=== PATIENT | male | born 1930 | race Caucasian/White ===

== ENCOUNTER 2016-05-07 16:35 | Inpatient (IN) | payer MEDICARE, OTHER ==
[~2016-05-07] VITALS: Ht 157.5 cm; Wt 84.0 kg
[~2016-05-07 16:35] MED LIST: ALLO300T2 PO; AMLO-145 PO; CARV6.2579 PO; CLOB15OI15 TOP; CLON1TAB3 PO; CLOP75TA4 PO; DEXL60CA2 PO; DICL100G37 TOP; DOCU-144 PO; DUTA0.5C PO; ERGO500014 PO; FLUT16SP17 NASAL; FURO40TA4 PO; GLIP10TA95 PO; HUM100VI13 SQ; HYDR-3670 PO; LANT3I SC; MONT10TA24 PO; NOVO3I SC; NYST15PO4 TOP; OLOP2.5D BOTH EYES; PANT40TA4 PO; POTA8CAP PO; ROSU40TA PO; TAMS0.4C2 PO; TRAM-40 PO; VALS160T20 PO
[2016-05-07 20:00] VITALS: BP 144/66; PULSE 66; RESP 18; Ht 157.5 cm; Wt 84.0 kg
[2016-05-07] MEDS ORDERED: NITROGLYCERIN (SL) 0.4 MG TAB SL PRN (20:30)
[2016-05-07] MEDS ORDERED: GLUCOSE GEL 15 GRAM TUBE PO PRN ×2 (20:30)
[2016-05-07] MEDS ORDERED: GLUCOSE GEL 15 GRAM TUBE BUCCAL PRN (20:30)
[2016-05-07] MEDS ORDERED: DOCUSATE SODIUM 100 MG CAP PO PRN (20:30)
[2016-05-07] MEDS ORDERED: GLUCAGON 1 MG INJ IM PRN (20:30)
[2016-05-07] MEDS ORDERED: DEXTROSE 50% 50 ML SYRINGE IV PRN ×2 (20:30)
[2016-05-07] MEDS ORDERED: ACETAMINOPHEN 650MG/20.3ML CUP PO PRN (21:00)
[2016-05-07] MEDS: ROSUVASTATIN CALCIUM 40 MG TABLET PO SCH (22:15)
[2016-05-07] MEDS: VALSARTAN 160 MG TAB PO SCH (22:15)
[2016-05-07] MEDS: CLOBETASOL 0.05% 15 GM OINT TOP SCH (22:16)
[2016-05-07] MEDS: MONTELUKAST 10 MG TAB PO SCH (22:16)
[2016-05-07] MEDS: OLOPATADINE 0.1% 5 ML OPH BOTH EYES SCH (22:16)
[2016-05-07] MEDS: DICLOFENAC SODIUM 1% GEL 100 GM TUBE TP SCH (22:17)
[2016-05-07] MEDS: NYSTATIN 30 GM POWDER BTL TOP SCH (22:24)
[2016-05-07] MEDS: Insulin NOVOLOG SS MODERATE Algorithm (SS with meals and bedtime) SC SCH (22:26)
[2016-05-07] MEDS ORDERED: BISACODYL 10 MG SUPP PR PRN (23:45)
[2016-05-07] MEDS: SENNA TAB PO SCH (23:45)
[2016-05-07] MEDS ORDERED: LACTULOSE 30ML CUP PO PRN (23:45)
[2016-05-07] MEDS ORDERED: MAGNESIUM HYDROXIDE 30ML CUP PO PRN (23:45)
[2016-05-08] MEDS: ACCUCHECK AT 2AM (Patients on SS coverage) XX SCH (02:00)
[2016-05-08 03:16] LABS: ADD UMIC YES; URINE BILIRUBIN (Dip) NEGATIVE (NEGATIVE); URINE BLOOD (Dip) 1+ (NEGATIVE); URINE COLOR LT. YELLOW (YELLOW); URINE GLUCOSE (Dip) NEGATIVE (NEGATIVE); URINE KETONES (Dip) NEGATIVE (NEGATIVE); URINE LEUKOCYTE ESTERASE (Dip) NEGATIVE (NEGATIVE); URINE NITRITE (Dip) NEGATIVE (NEGATIVE); URINE TOTAL PROTEIN (Dip) TRACE (NEGATIVE); URINE UROBILINOGEN (Dip) 0.2 E.U./dL (0.1-1.0)
[2016-05-08 03:27] LABS: SQUAMOUS EPITHELIAL CELL,UR RARE
[2016-05-08] MEDS: PANTOPRAZOLE (EC) 40 MG TAB PO SCH (06:24)
[2016-05-08 06:25] VITALS: BP 155/67; PULSE 72
[2016-05-08 07:15] LABS: BASOPHILS % 0.7 % (0.0-2.0); EOSINOPHILS # 0.1 10^3/ul (0.0-0.5); EOSINOPHILS % 1.3 % (0.0-7.0); HEMATOCRIT 24.1 % (42.0-52.0); HEMOGLOBIN 7.9 g/dl (14.0-18.0); LYMPHOCYTES # 1.9 10^3/ul (0.8-2.9); LYMPHOCYTES % 27.5 % (15.0-51.0); MEAN CORPUSCULAR HGB CONC 32.8 g/dl (32.0-37.0); MEAN CORPUSCULAR VOLUME 94.4 fl (82.0-101.0); MEAN PLATELET VOLUME 7.9 fl (7.4-10.4); MONOCYTE # 0.5 10^3/ul (0.3-0.9); MONOCYTES % 7.2 % (0.0-11.0); NEUTROPHIL # 4.3 10^3/ul (1.6-7.5); NEUTROPHILS % 63.3 % (39.0-77.0); PLATELET COUNT 196 10^3/UL (140-440); RED BLOOD COUNT 2.55 10^6/ul (4.70-6.10); RED CELL DISTRIBUTION WIDTH 14.7 % (11.5-14.5); UNCORRECTED WBC 6.8 10^3/ul (4.8-10.8); WHITE BLOOD COUNT 6.8 10^3/ul (4.8-10.8)
[2016-05-08 07:25] LABS: CONDITION 1; LH ANALYZER COMMENTS 1
[2016-05-08 07:29] LABS: ALBUMIN 2.7 g/dl (3.3-4.9); POTASSIUM 4.4 mmol/L (3.5-5.1)
[2016-05-08 07:32] LABS: BILIRUBIN,INDIRECT 0.1 mg/dl (0-1.1); BILIRUBIN,TOTAL 0.1 mg/dl (0.2-1.3); CREATININE 1.55 mg/dl (0.61-1.24); TOTAL PROTEIN 5.4 g/dl (6.1-8.1)
[2016-05-08 07:33] LABS: CALCIUM 8.1 mg/dl (8.4-10.2)
[2016-05-08] MEDS: Insulin NOVOLOG SS MODERATE Algorithm (SS with meals and bedtime) SC SCH ×4 (07:35→20:51)
[2016-05-08] MEDS: INSULIN ASPART [NOVOLOG] 3 ML PEN SC SCH ×3 (07:35→18:01)
[2016-05-08 08:00] VITALS: BP 140/60; PULSE 78; RESP 18
[2016-05-08] MEDS: VALSARTAN 160 MG TAB PO SCH ×2 (09:00→20:46)
[2016-05-08] MEDS: OLOPATADINE 0.1% 5 ML OPH BOTH EYES SCH ×2 (09:00→22:01)
[2016-05-08] MEDS: INSULIN GLARGINE [LANtus] 3 ML PEN SC SCH (09:00)
[2016-05-08] MEDS: LINAGLIPTIN 5 MG TABLET PO SCH (09:00)
[2016-05-08] MEDS: NYSTATIN 30 GM POWDER BTL TOP SCH ×2 (09:00→20:48)
[2016-05-08] MEDS: AMLODIPINE 5 MG TAB PO SCH (09:00)
[2016-05-08] MEDS: DUTASTERIDE 0.5 MG CAP PO SCH ×2 (09:00→15:29)
[2016-05-08] MEDS: CLOBETASOL 0.05% 15 GM OINT TOP SCH ×2 (09:00→22:01)
[2016-05-08] MEDS: DICLOFENAC SODIUM 1% GEL 100 GM TUBE TP SCH ×3 (09:00→20:48)
[2016-05-08] MEDS: FUROSEMIDE 40 MG TAB PO SCH (09:00)
[2016-05-08] MEDS: POTASSIUM CHLORIDE (SR) 8 MEQ CAP PO SCH ×2 (09:00→15:30)
[2016-05-08] MEDS: DOCUSATE SODIUM 100 MG CAP PO SCH ×2 (15:27→20:51)
[2016-05-08] MEDS: MULTIVITAMINS THERAPEUTIC TAB PO SCH (15:28)
[2016-05-08] MEDS: COLLAGENASE 30 GM TUBE TOP SCH (15:28)
[2016-05-08] MEDS: FOLIC ACID 1 MG TAB PO SCH (15:28)
[2016-05-08] MEDS: ZINC SULFATE 220 MG CAP PO SCH (15:28)
[2016-05-08] MEDS: ASCORBIC ACID 500 MG TAB PO SCH (15:39)
[2016-05-08] MEDS: BETAMETHASONE/CLOTRIMAZOLE 15 GM CR TOP PRN (15:39)
--- NOTE | 2016-05-08 18:04 | CONS ---
DATE OF ADMISSION: 05/07/2016 DATE OF CONSULTATION: 05/08/2016 REASON FOR CONSULTATION: Medical management during the course of acute rehabilitation. HISTORY OF PRESENT ILLNESS: This is an 85-year-old gentleman with past medical history of obesity, essential hypertension, coronary artery disease status post CABG, carotid stenosis status post CEA b ilaterally, BPH, diabetes mellitus type 2, GERD, AVR, spinal stenosis, and gout who was recently adm itted to [facility] on 04/23/2016 and was diagnosed with subdural hematoma with mi dline shift and was admitted to the ICU. Neurosurgery, Dr. Castillo, was consulted. The patient w as taken to OR for left duane hole for drainage of subdural hematoma with placement of a subdural yanira in on 04/28/2016. The patient tolerated the procedure well and was continued to be monitored in ICU where he was continued on medical management. He was then been placed on Cardene drip secondary to elevated blood pressure. In the course of the ICU, he was continued to be monitored by medicine te am, social media editor, neurosurgery, and carton forming machine helper. He essentially was transferred out of the ICU to telemetry floor where he was seen and evaluated by the physical therapist, and he was able to joseph ate oral intake. He was able to ambulate with assistance. His blood pressure is starting to improv e significantly. The patient was then seen and evaluated by acute rehab and has been accepted [facility] for further physical therapy evaluation and treatment. At this time, the patient denies h aving any chest pain, shortness of breath, nausea, vomiting, diarrhea. No headache, dizziness, ligh theadedness. No change in visual acuity, diplopia, photophobia. He has been able to tolerate oral intake. He has been placed on pureed diet without any evidence of aspiration. PAST MEDICAL AND SURGICAL HISTORY: 1. Subdural hematoma with midline shift, status post left frontal duane hole and placement of a subd ural drain. 2. Status post drain removal. 3. Encephalopathy secondary to subdural hematoma, improved. 4. Uncontrolled diabetes mellitus. 5. Chronic kidney disease. 6. Coronary artery disease status post coronary artery bypass graft. 7. GERD. 8. Aortic valve replacement. 9. Gout. 10. Benign prostatic hypertrophy. 11. Anemia of chronic disease. 12. Status post PICC line placement. 13. Essential hypertension. MEDICATIONS: 1. Tylenol. 2. Norvasc. 3. Coreg 25 mg. 4. Klonopin. 5. Colace 100 mg. 6. Avodart 0.5 mg. 7. Drisdol 50,000 units. 8. Lasix 40 mg. 9. Hydralazine 10 mg. 10. NovoLog 5 units. 11. Lantus 15 units. 12. Tradjenta 5 mg. 13. 5 mg. 14. Nitroglycerin 0.4 mg. 15. Nystatin 30 grams. 16. Patanol 1 drop. 17. Protonix 40 mg. 18. Potassium chloride 8 mEq. 19. Crestor 40 mg. 20. Losartan 160 mg. 21. 10 mg. ALLERGIES: NO KNOWN DRUG ALLERGIES. FAMILY HISTORY: Noncontributory secondary to advanced age. SOCIAL HISTORY: Positive for history of smoking in remission and occasional alcohol use in the past . No illicit drugs. REVIEW OF SYSTEMS: As above per HPI. Otherwise, 12 review of systems has been found to be negative . PHYSICAL EXAMINATION: VITAL SIGNS: Temperature 98.9, pulse 60, respiration 18, blood pressure 144/66, saturating 98% in r oom air. GENERAL APPEARANCE: The patient is lying in bed comfortably without any acute distress. He is awak e, alert, is able to answer my questions and follow commands. EYES AND ENT: Conjunctivae and lids are normal. Pupils are normal. Extraocular normal. Hearing g rossly normal. Lips are normal. Oral mucosa is moist. NECK: Supple. Trachea is midline. No lymphadenopathy. RESPIRATORY: Effort is normal. Clear to auscultation bilaterally. CARDIOVASCULAR: Normal S1, S2. Regular rhythm and rate. No murmur, no bruits, no edema. Peripher al pulses, radial pulses palpable. Cap refill is normal. CHEST: Normal expansion of thorax during inspiration. GASTROINTESTINAL: Abdomen is soft, nontender, not distended. Bowel sounds present. No guarding, n o rebound. GENITOURINARY: Deferred. MUSCULOSKELETAL: Upper and lower extremities within normal limits. Full range of motion. Strength upper extremities 5/5, lower extremities 4/5 bilaterally symmetric. NEUROLOGIC: He is awake, alert, oriented. LABORATORY WORK AND IMAGING: WBC 6.8, hemoglobin 7.8, hematocrit 24.1, platelets 196, MCV 94.4. So dium 143, potassium 4.4, chloride 109, bicarbonate 25, BUN 25, creatinine 1.55, glucose 148, prealbu min 3.13, albumin 2.7. ASSESSMENT AND PLAN: 1. Status post subdural hematoma and midline shift status post left frontal duane hole and placement of subdural drain. Neurosurgery was consulted. The patient is stable. Continue physical therapy. 2. Encephalopathy, resolving. 3. Diabetes mellitus. Continue aggressive medical management with Tradjenta, Lantus, insulin slidi ng scale, NovoLog. 4. Chronic kidney insufficiency. Continue to monitor. 5. History of coronary artery disease status post coronary artery bypass graft. Continue Coreg and statin. Unfortunately, the patient does not qualify for any anticoagulation or antiplatelet second luis carlos to subdural hematoma. 6. Gastroesophageal reflux disease. Continue PPI. 7. History of aortic valve replacement as above. The patient does not qualify for any anticoagulat ion at this time secondary to subdural hematoma. 8. Gout. Continue medical management. 9. Benign prostatic hypertrophy. Continue avodart. 10. Anemia of chronic disease. Continue to monitor. If patient's hemoglobin is less than 7.5, we will transfuse. We will continue to monitor patient closely. Further recommendations, management, and treatment as per clinical course. Total amount of time spent for evaluation of patient and admission workup was 40 minutes. Dictated By: GLEN DOMINGO MD PN/NTS Conf#: [id number] DID#: [id number]
[2016-05-08 20:00] VITALS: BP 184/77; PULSE 74; RESP 18
[2016-05-08] MEDS: ROSUVASTATIN CALCIUM 40 MG TABLET PO SCH (20:45)
[2016-05-08] MEDS: SENNA TAB PO SCH (20:51)
[2016-05-08] MEDS: MONTELUKAST 10 MG TAB PO SCH (20:52)
[2016-05-08 22:12] VITALS: BP 171/57; PULSE 62
[2016-05-09] MEDS: ACCUCHECK AT 2AM (Patients on SS coverage) XX SCH (02:00)
[2016-05-09] MEDS: PANTOPRAZOLE (EC) 40 MG TAB PO SCH (06:55)
--- NOTE | 2016-05-09 07:47 | CONS ---
DATE OF ADMISSION: 05/07/2016 DATE OF CONSULTATION: 05/08/2016 REHABILITATION POSTADMISSION PHYSICIAN EVALUATION ADMISSION DIAGNOSIS: Subdural hematoma status post bur hole and drain with drain removal. ACTIVE COMORBIDITIES: 1. Encephalopathy. 2. Hypertension. 3. Dysphagia. 4. Stage III sacral decubitus ulcer. 5. Coronary artery disease with history of coronary artery bypass graft. 6. History of carotid stenosis. 7. BPH. 8. Type 2 diabetes mellitus with uncontrolled blood sugars. 9. Gastroesophageal reflux disease. 10. History of spinal stenosis. 11. History of gout. 12. Anemia. 13. History of aortic valve replacement. 14. Impairments in self-care, mobility, and cognition. 15. Acute on chronic kidney disease. HISTORY OF PRESENT ILLNESS: The patient is an 85-year-old gentleman with a history of multiple medical comorbidities who was noted to have worsening cognition and mobility. Workup did reveal subdural hematoma, and the patient did undergo bur hole and drain placement with eventual drain removal. The patient's hospital course also notable for dysphagia in addition to significant impairments in self-care and mobility as compared to baseline, in addition to stage III decubitus ulcer. The patient has been cleared to transfer to the rehabilitation unit for comprehensive interdisciplinary rehab care. FUNCTIONAL HISTORY: Prior to recent events, he was independent in self-care tasks and mobility. Currently, he requires maximal assist for self-care and mobility tasks. SOCIAL HISTORY: The patient reportedly lives at home with family and hopes to return there upon discharge. PAST MEDICAL HISTORY: 1. Hypertension. 2. Coronary artery disease with history of coronary artery bypass graft. 3. History of carotid stenosis with bilateral carotid endarterectomy. 4. BPH. 5. Type 2 diabetes mellitus. 6. Gastroesophageal reflux disease. 7. Spinal stenosis. 8. Aortic valve replacement. 9. Gout. CURRENT MEDICATIONS: 1. Tylenol p.r.n. 2. Norvasc 5 mg p.o. daily. 3. Coreg 25 mg p.o. b.i.d. 4. Temovate b.i.d. 5. Colace 100 mg b.i.d. 6. Drisdol p.o. 7. Lasix 40 mg p.o. daily. 8. Apresoline 10 mg p.o. q.8 hours. 9. Insulin sliding scale. 10. NovoLog insulin 5 units subQ with meals. 11. Lantus 15 units subQ every morning. 12. Tradjenta 5 mg p.o. daily. 13. Nystatin topically. 14. Patanol eyedrop. 15. Protonix 40 mg p.o. daily. 16. Crestor 40 mg p.o. at bedtime. 17. Potassium chloride 8 mEq p.o. daily. 18. Diovan 160 p.o. b.i.d. ALLERGIES: THE PATIENT WITH NO KNOWN DRUG ALLERGIES. PHYSICAL EXAMINATION: VITAL SIGNS: The patient is currently afebrile with stable vital signs. HEENT: The extraocular motions appear intact. The oropharynx is clear. NECK: Supple. LUNGS: Clear anteriorly. CARDIAC: S1, S2. ABDOMEN: Soft, nontender, positive bowel sounds. NEUROLOGIC: He is awake and alert and he will follow simple 1-step gestural commands. He demonstrates antigravity strength in bilateral upper extremity and lower extremity. He has impaired static and dynamic balance. PLAN: The patient has been admitted for comprehensive interdisciplinary acute rehab and is anticipated to tolerate 3 hours of daily therapy in divided doses for at least 5/7 days a week. The treatment plan will include: 1. Physical therapy to focus on bed mobility, transfers, and household ambulation with the goal of having the patient reach a standby assist level. 2. Occupational therapy to focus on hygiene, grooming, dressing, bathing, and toileting activities with the goal of having the patient reach a standby assist level. 3. Speech Therapy for full cognitive evaluation and retraining in addition to dysphagia management with goal of baseline congnition and meeting nutritional needs by mouth 4. Rehabilitation nursing for carryover of therapeutic interventions, the goal of continent of bowel and bladder, and the goal of pain adequately managed on oral medications. We will also do active skin care regime with offloading and improved nutrition with the goal of having skin integrity significantly improved. REHABILITATION BARRIER: Stage III sacral decubitus ulcer. INTERVENTION FOR BARRIER: Wound care. ESTIMATED LENGTH OF STAY: 14 days. DISPOSITION GOAL: Home. I acknowledge that I have performed a full physical examination on this patient within 24 hours of admission to the rehabilitation unit and believe the patient is a good candidate for comprehensive interdisciplinary rehab care and is anticipated to make reasonable goals in a reasonable period of time as outlined above. Dictated By: MARY CARMEN CROOK/MARLA Conf#: [id number] DID#: [id number] MTDD
[2016-05-09 08:00] VITALS: BP 197/83; PULSE 68; RESP 18
[2016-05-09 08:30] VITALS: BP 120/70; PULSE 78
[2016-05-09] MEDS: INSULIN ASPART [NOVOLOG] 3 ML PEN SC SCH ×3 (08:37→18:15)
[2016-05-09 08:40] LABS: BASOPHILS % 0.4 % (0.0-2.0); EOSINOPHILS # 0.1 10^3/ul (0.0-0.5); EOSINOPHILS % 1.6 % (0.0-7.0); HEMATOCRIT 26.3 % (42.0-52.0); HEMOGLOBIN 8.7 g/dl (14.0-18.0); LYMPHOCYTES # 1.9 10^3/ul (0.8-2.9); LYMPHOCYTES % 25.4 % (15.0-51.0); MEAN CORPUSCULAR HEMOGLOBIN 30.8 pg (29.0-33.0); MEAN CORPUSCULAR HGB CONC 33.1 g/dl (32.0-37.0); MEAN CORPUSCULAR VOLUME 92.9 fl (82.0-101.0); MEAN PLATELET VOLUME 8.2 fl (7.4-10.4); MONOCYTE # 0.5 10^3/ul (0.3-0.9); MONOCYTES % 7.1 % (0.0-11.0); NEUTROPHIL # 4.8 10^3/ul (1.6-7.5); NEUTROPHILS % 65.5 % (39.0-77.0); PLATELET COUNT 200 10^3/UL (140-440); RED BLOOD COUNT 2.83 10^6/ul (4.70-6.10); RED CELL DISTRIBUTION WIDTH 14.8 % (11.5-14.5); UNCORRECTED WBC 7.4 10^3/ul (4.8-10.8); WHITE BLOOD COUNT 7.4 10^3/ul (4.8-10.8)
[2016-05-09] MEDS: Insulin NOVOLOG SS MODERATE Algorithm (SS with meals and bedtime) SC SCH ×4 (08:40→20:18)
[2016-05-09 08:45] VITALS: BP_SYST 130; BP_SYST 150; BP_DIAS 70; PULSE 70
[2016-05-09 08:48] LABS: CONDITION 1; LH ANALYZER COMMENTS 1
[2016-05-09 08:58] LABS: POTASSIUM 4.4 mmol/L (3.5-5.1)
[2016-05-09] MEDS: DICLOFENAC SODIUM 1% GEL 100 GM TUBE TP SCH ×3 (09:00→21:39)
[2016-05-09] MEDS: LINAGLIPTIN 5 MG TABLET PO SCH (09:00)
[2016-05-09] MEDS: CLOBETASOL 0.05% 15 GM OINT TOP SCH ×2 (09:00→20:07)
[2016-05-09] MEDS: COLLAGENASE 30 GM TUBE TOP SCH (09:00)
[2016-05-09] MEDS: POTASSIUM CHLORIDE (SR) 8 MEQ CAP PO SCH (09:00)
[2016-05-09] MEDS: NYSTATIN 30 GM POWDER BTL TOP SCH ×2 (09:00→20:14)
[2016-05-09] MEDS: DOCUSATE SODIUM 100 MG CAP PO SCH ×2 (09:00→20:06)
[2016-05-09] MEDS: OLOPATADINE 0.1% 5 ML OPH BOTH EYES SCH ×2 (09:00→20:07)
[2016-05-09 09:01] LABS: CREATININE 1.39 mg/dl (0.61-1.24)
[2016-05-09 09:02] LABS: CALCIUM 8.4 mg/dl (8.4-10.2)
[2016-05-09] MEDS: INSULIN GLARGINE [LANtus] 3 ML PEN SC SCH (10:31)
[2016-05-09] MEDS: VALSARTAN 160 MG TAB PO SCH ×2 (10:40→20:07)
[2016-05-09] MEDS: traMADol 50 MG TAB PO PRN (10:41)
[2016-05-09] MEDS: DUTASTERIDE 0.5 MG CAP PO SCH (10:41)
[2016-05-09] MEDS: FOLIC ACID 1 MG TAB PO SCH (10:44)
[2016-05-09] MEDS: ASCORBIC ACID 500 MG TAB PO SCH (10:44)
[2016-05-09] MEDS: ZINC SULFATE 220 MG CAP PO SCH (10:44)
[2016-05-09] MEDS: MULTIVITAMINS THERAPEUTIC TAB PO SCH (10:44)
[2016-05-09] MEDS: AMLODIPINE 5 MG TAB PO SCH (10:44)
[2016-05-09] MEDS: FUROSEMIDE 40 MG TAB PO SCH (10:45)
--- NOTE | 2016-05-09 11:45 | CONS ---
Date/Time of Note Date/Time of Note DATE: 05/09/16 TIME: 11:43 Consult Date/Type/Reason Admit Date/Time May 07, 2016 at 19:15 Initial Consult Date Subjective Pt feeling better now Objective min assist ambulation Vital Signs Date Time Temp Pulse Resp B/P Pulse Ox O2 Delivery O2 Flow Rate FiO2 05/09/16 08:45 70 130/70 05/09/16 08:00 98.5 18 98 Room Air Intake and Output 05/08/16 05/08/16 05/09/16 14:59 22:59 06:59 Intake Total 760 ml 300 ml Output Total 1000 ml Balance -240 ml 300 ml Results/Medications Result Diagram: 05/09/16 0730 05/09/16 0730 Results 24 hrs Laboratory Tests Test 05/08/16 12:15 05/08/16 17:59 05/08/16 20:22 05/09/16 02:20 Bedside Glucose 192 296 H 241 H 227 H Test 05/09/16 07:30 Anion Gap 16 Basophils # 0.0 Basophils % 0.4 Bedside Glucose 277 H Blood Morphology Comment Blood Urea Nitrogen 25 H Calcium Level 8.4 Carbon Dioxide Level 24 Chloride Level 105 Creatinine 1.39 H Eosinophils # 0.1 Eosinophils % 1.6 Glucose Level 250 #H Hematocrit 26.3 L Hemoglobin 8.7 L Lymphocytes # 1.9 Lymphocytes % 25.4 Mean Corpuscular Hemoglobin 30.8 Mean Corpuscular Hemoglobin Concent 33.1 Mean Corpuscular Volume 92.9 Mean Platelet Volume 8.2 Monocytes # 0.5 Monocytes % 7.1 Neutrophils # 4.8 Neutrophils % 65.5 Nucleated Red Blood Cells # 0.0 Nucleated Red Blood Cells % 0.0 Platelet Count 200 Potassium Level 4.4 Red Blood Count 2.83 L Red Cell Distribution Width 14.8 H Sodium Level 141 White Blood Count 7.4 Medications Current Medications Potassium Chloride (Micro-K) 8 meq DAILY PO Last administered on 05/08/16at 15: 30; Admin Dose 8 MEQ; Start 05/08/16 at 09:00 Rosuvastatin Calcium (Crestor) 40 mg QHS PO Last administered on 05/08/16at 20: 45; Admin Dose 40 MG; Start 05/07/16 at 21:00 Valsartan (Diovan) 160 mg BID PO Last administered on 05/08/16at 20:46; Admin Dose 160 MG; Start 05/07/16 at 21:00 Diclofenac Sodium (Voltaren 1% Gel) 2 gm TID TP Last administered on at 20:48; Admin Dose 2 GM; Start 05/07/16 at 21:00 Montelukast Sodium (Singulair) 10 mg HS PO Last administered on 05/08/16at 20: 52; Admin Dose 10 MG; Start 05/07/16 at 21:00 Nitroglycerin (Nitroglycerin (Sl Tab) 0.4 Mg) 1 tab Q5M PRN SL CHEST PAIN; Start 05/07/16 at 20:30 Nystatin (Nystatin Powder) 1 applic BID TOP Last administered on 05/08/16at 20: 48; Admin Dose 1 APPLIC; Start 05/07/16 at 21:00 Olopatadine HCl (Patanol 0.1% Oph) 1 drop BID BOTH EYES Last administered on at 22:01; Admin Dose 1 DROP; Start 05/07/16 at 21:00 Pantoprazole (Protonix Tab) 40 mg DAILY@06 PO Last administered on 05/09/16at 06:55; Admin Dose 40 MG; Start 05/08/16 at 06:00 Diagnostic Test (Pha) (Accucheck) 1 ea 02 XX ; Start 05/08/16 at 02:00 Insulin Glargine (Lantus) 15 unit QAM SC Last administered on 05/09/16at 10:31 ; Admin Dose 15 UNIT; Start 05/08/16 at 09:00 Miscellaneous Information 1 ea NOTE XX ; Start 05/07/16 at 20:30 Glucose (Glutose) 15 gm Q15M PRN PO DECREASED GLUCOSE; Start 05/07/16 at 20:30 Glucose (Glutose) 22.5 gm Q15M PRN PO DECREASED GLUCOSE; Start 05/07/16 at 20: 30 Dextrose (D50w Syringe) 25 ml Q15M PRN IV DECREASED GLUCOSE; Start 05/07/16 at 20:30 Dextrose (D50w Syringe) 50 ml Q15M PRN IV DECREASED GLUCOSE; Start 05/07/16 at 20:30 Glucagon (Glucagen) 1 mg Q15M PRN IM DECREASED GLUCOSE; Start 05/07/16 at 20: 30 Glucose (Glutose) 15 gm Q15M PRN BUCCAL DECREASED GLUCOSE; Start 05/07/16 at 20:30 Linagliptin (Tradjenta) 5 mg DAILY PO ; Start 05/08/16 at 09:00 Docusate Sodium (Colace) 100 mg Q12H PRN PO CONSTIPATION; Start 05/07/16 at 20 :30 Dutasteride (Avodart) 0.5 mg DAILY PO Last administered on 05/09/16at 10:41; Admin Dose 0.5 MG; Start 05/08/16 at 09:00 Ergocalciferol (Drisdol) 50,000 unit [place]@09 PO ; Start 05/10/16 at 09:00 Furosemide (Lasix) 40 mg DAILY PO Last administered on 05/09/16at 10:45; Admin Dose 40 MG; Start 05/08/16 at 09:00 Hydralazine HCl (Apresoline) 10 mg Q8 PO Last administered on 05/09/16at 06:55 ; Admin Dose 10 MG; Start 05/07/16 at 22:00 Acetaminophen (Tylenol Liquid) 650 mg Q6H PRN PO PAIN AND OR ELEVATED TEMP; Start 05/07/16 at 21:00 Amlodipine Besylate (Norvasc) 5 mg DAILY PO Last administered on 05/09/16 10: 44; Admin Dose 5 MG; Start 05/08/16 at 09:00 Carvedilol (Coreg) 25 mg BID PO Last administered on 05/09/16 10:43; Admin Dose 25 MG; Start 05/07/16 at 21:00 Clobetasol Propionate (Temovate 0.05% Oint) 1 applic BID TOP Last administered on 05/08/16at 22:01; Admin Dose 1 APPLIC; Start 05/07/16 at 21:00 Tramadol HCl (Ultram) 50 mg Q6H PRN PO PAIN Last administered on 05/09/16 10: 41; Admin Dose 50 MG; Start 05/07/16 at 21:00 Docusate Sodium (Colace) 100 mg BID PO Last administered on 05/08/16 20:51; Admin Dose 100 MG; Start 05/08/16 at 09:00 Senna (Senokot) 1 tab HS PO Last administered on 05/08/16at 20:51; Admin Dose 1 TAB; Start 05/07/16 at 23:45 Bisacodyl (Dulcolax Supp) 10 mg DAILY PRN [place] CONSTIPATION; Start 05/07/16 at 23:45 Acetaminophen (Tylenol Tab) 650 mg Q4H PRN PO PAIN; Start 05/07/16 at 23:45 Magnesium Hydroxide (Milk Of Mag) 30 ml BID PRN PO CONSTIPATION; Start at 23:45 Lactulose (Enulose) 20 gm DAILY PRN PO CONSTIPATION Last administered on at 18:46; Admin Dose 20 GM; Start 05/07/16 at 23:45 Collagenase (Santyl) 1 applic QAM TOP Last administered on 05/08/16at 15:28; Admin Dose 1 APPLIC; Start 05/08/16 at 11:00 Ascorbic Acid (Vitamin C) 500 mg DAILY PO Last administered on 05/09/16at 10:44 ; Admin Dose 500 MG; Start 05/08/16 at 10:00 Multivitamins Therapeutic (Theragran) 1 tab DAILY PO Last administered on 05/09at 10:44; Admin Dose 1 TAB; Start 05/08/16 at 10:00 Betamethasone/ Clotrimazole (Lotrisone Cr) 1 applic BID PRN TOP RASH Last administered on 05/08/16at 15:39; Admin Dose 1 APPLIC; Start 05/08/16 at 10:30 Folic Acid (Folic Acid) 1 mg DAILY PO Last administered on 05/09/16at 10:44; Admin Dose 1 MG; Start 05/08/16 at 10:00 Zinc Sulfate (Zinc Sulfate) 220 mg DAILY PO Last administered on 05/09/16at 10: 44; Admin Dose 220 MG; Start 05/08/16 at 10:30 Assessment/Plan Additional Assessment/Plan Rehab- Subdural hematoma status post bur hole and drain with drain removal. Progressing with rehab Encephalopathy. Hypertension. Dysphagia. Stage III sacral decubitus ulcer. Coronary artery disease with history of coronary artery bypass graft. History of carotid stenosis. BPH. Type 2 diabetes mellitus with uncontrolled blood sugars. Gastroesophageal reflux disease. History of spinal stenosis. History of gout. Anemia. History of aortic valve replacement. Impairments in self-care, mobility, and cognition. Acute on chronic kidney disease. MARY CARMEN GARCIA MD May 09, 2016 11:45
--- NOTE | 2016-05-09 13:08 | PN ---
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 Please note the nursing staff informs me that he is willing to take the insulin with some strong encouragement (2) BPH (benign prostatic hyperplasia) Status: Chronic Comment: Noted and stable on treatment Qualifiers: Prostatic enlargement morphology: unspecified morphology Lower urinary tract symptom presence: symptoms absent Qualified Code: N40.0 - Benign prostatic hyperplasia without lower urinary tract symptoms, unspecified morphology (3) Status post evacuation of subdural hematoma Status: Acute Comment: In acute rehab for recovery after the evacuation of subdural hematoma proceeding (4) Diastolic dysfunction Status: Chronic Comment: On appropriate treatment Subjective 24 Hr Interval Summary Free Text/Dictation Issue coming up with the patient refusing his diabetic medications as such his sugars have risen he is otherwise the same Constitutional: no complaints Respiratory: no complaints Cardiovascular: no complaints Gastrointestinal: no complaints Exam/Review of Systems Vital Signs Vitals Vital Signs Date Time Temp Pulse Resp B/P Pulse Ox O2 Delivery O2 Flow Rate FiO2 05/09/16 08:45 70 130/70 05/09/16 08:00 98.5 18 98 Room Air Intake and Output 05/08/16 05/08/16 05/09/16 15:00 23:00 07:00 Intake Total 760 ml 300 ml Output Total 1000 ml Balance -240 ml 300 ml Exam Constitutional: alert Respiratory: clear to auscultation, normal air movement Cardiovascular: nl pulses Gastrointestinal: nl liver, spleen, non-tender, soft Results Result Diagram: 05/09/16 0730 05/09/16 1227 Results 24 hrs Laboratory Tests Test 05/08/16 17:59 05/08/16 20:22 05/09/16 02:20 05/09/16 07:30 Bedside Glucose 296 H 241 H 227 H 277 H Anion Gap 16 Basophils # 0.0 Basophils % 0.4 Blood Morphology Comment Blood Urea Nitrogen 25 H Calcium Level 8.4 Carbon Dioxide Level 24 Chloride Level 105 Creatinine 1.39 H Eosinophils # 0.1 Eosinophils % 1.6 Glucose Level 250 #H Hematocrit 26.3 L Hemoglobin 8.7 L Lymphocytes # 1.9 Lymphocytes % 25.4 Mean Corpuscular Hemoglobin 30.8 Mean Corpuscular Hemoglobin Concent 33.1 Mean Corpuscular Volume 92.9 Mean Platelet Volume 8.2 Monocytes # 0.5 Monocytes % 7.1 Neutrophils # 4.8 Neutrophils % 65.5 Nucleated Red Blood Cells # 0.0 Nucleated Red Blood Cells % 0.0 Platelet Count 200 Potassium Level 4.4 Red Blood Count 2.83 L Red Cell Distribution Width 14.8 H Sodium Level 141 White Blood Count 7.4 Test 05/09/16 11:56 05/09/16 12:27 Bedside Glucose 409 *H Glucose Level 334 H Medications Medications Current Medications Potassium Chloride (Micro-K) 8 meq DAILY PO Last administered on 05/08/16 15: 30; Admin Dose 8 MEQ; Start 05/08/16 at 09:00 Rosuvastatin Calcium (Crestor) 40 mg QHS PO Last administered on 05/08/16 20: 45; Admin Dose 40 MG; Start 05/07/16 at 21:00 Valsartan (Diovan) 160 mg BID PO Last administered on 05/09/16 10:40; Admin Dose 160 MG; Start 05/07/16 at 21:00 Diclofenac Sodium (Voltaren 1% Gel) 2 gm TID TP Last administered on 20:48; Admin Dose 2 GM; Start 05/07/16 at 21:00 Montelukast Sodium (Singulair) 10 mg HS PO Last administered on 05/08/16 20: 52; Admin Dose 10 MG; Start 05/07/16 at 21:00 Nitroglycerin (Nitroglycerin (Sl Tab) 0.4 Mg) 1 tab Q5M PRN SL CHEST PAIN; Start 05/07/16 at 20:30 Nystatin (Nystatin Powder) 1 applic BID TOP Last administered on 05/08/16 20: 48; Admin Dose 1 APPLIC; Start 05/07/16 at 21:00 Olopatadine HCl (Patanol 0.1% Oph) 1 drop BID BOTH EYES Last administered on 22:01; Admin Dose 1 DROP; Start 05/07/16 at 21:00 Pantoprazole (Protonix Tab) 40 mg DAILY@06 PO Last administered on 05/09/16at 06:55; Admin Dose 40 MG; Start 05/08/16 at 06:00 Diagnostic Test (Pha) (Accucheck) 1 ea 02 XX ; Start 05/08/16 at 02:00 Miscellaneous Information 1 ea NOTE XX ; Start 05/07/16 at 20:30 Glucose (Glutose) 15 gm Q15M PRN PO DECREASED GLUCOSE; Start 05/07/16 at 20:30 Glucose (Glutose) 22.5 gm Q15M PRN PO DECREASED GLUCOSE; Start 05/07/16 at 20: 30 Dextrose (D50w Syringe) 25 ml Q15M PRN IV DECREASED GLUCOSE; Start 05/07/16 at 20:30 Dextrose (D50w Syringe) 50 ml Q15M PRN IV DECREASED GLUCOSE; Start 05/07/16 at 20:30 Glucagon (Glucagen) 1 mg Q15M PRN IM DECREASED GLUCOSE; Start 05/07/16 at 20: 30 Glucose (Glutose) 15 gm Q15M PRN BUCCAL DECREASED GLUCOSE; Start 05/07/16 at 20:30 Linagliptin (Tradjenta) 5 mg DAILY PO ; Start 05/08/16 at 09:00 Docusate Sodium (Colace) 100 mg Q12H PRN PO CONSTIPATION; Start 05/07/16 at 20 :30 Dutasteride (Avodart) 0.5 mg DAILY PO Last administered on 05/09/16at 10:41; Admin Dose 0.5 MG; Start 05/08/16 at 09:00 Ergocalciferol (Drisdol) 50,000 unit [place]@09 PO ; Start 05/10/16 at 09:00 Furosemide (Lasix) 40 mg DAILY PO Last administered on 05/09/16at 10:45; Admin Dose 40 MG; Start 05/08/16 at 09:00 Hydralazine HCl (Apresoline) 10 mg Q8 PO Last administered on 05/09/16at 06:55 ; Admin Dose 10 MG; Start 05/07/16 at 22:00 Acetaminophen (Tylenol Liquid) 650 mg Q6H PRN PO PAIN AND OR ELEVATED TEMP; Start 05/07/16 at 21:00 Amlodipine Besylate (Norvasc) 5 mg DAILY PO Last administered on 05/09/16 10: 44; Admin Dose 5 MG; Start 05/08/16 at 09:00 Carvedilol (Coreg) 25 mg BID PO Last administered on 05/09/16 10:43; Admin Dose 25 MG; Start 05/07/16 at 21:00 Clobetasol Propionate (Temovate 0.05% Oint) 1 applic BID TOP Last administered on 05/08/16 22:01; Admin Dose 1 APPLIC; Start 05/07/16 at 21:00 Tramadol HCl (Ultram) 50 mg Q6H PRN PO PAIN Last administered on 05/09/16 10: 41; Admin Dose 50 MG; Start 05/07/16 at 21:00 Docusate Sodium (Colace) 100 mg BID PO Last administered on 05/08/16 20:51; Admin Dose 100 MG; Start 05/08/16 at 09:00 Senna (Senokot) 1 tab HS PO Last administered on 05/08/16 20:51; Admin Dose 1 TAB; Start 05/07/16 at 23:45 Bisacodyl (Dulcolax Supp) 10 mg DAILY PRN [place] CONSTIPATION; Start 05/07/16 at 23:45 Acetaminophen (Tylenol Tab) 650 mg Q4H PRN PO PAIN; Start 05/07/16 at 23:45 Magnesium Hydroxide (Milk Of Mag) 30 ml BID PRN PO CONSTIPATION; Start at 23:45 Lactulose (Enulose) 20 gm DAILY PRN PO CONSTIPATION Last administered on 18:46; Admin Dose 20 GM; Start 05/07/16 at 23:45 Collagenase (Santyl) 1 applic QAM TOP Last administered on 05/08/16at 15:28; Admin Dose 1 APPLIC; Start 05/08/16 at 11:00 Ascorbic Acid (Vitamin C) 500 mg DAILY PO Last administered on 05/09/16 10:44 ; Admin Dose 500 MG; Start 05/08/16 at 10:00 Multivitamins Therapeutic (Theragran) 1 tab DAILY PO Last administered on 05/09 10:44; Admin Dose 1 TAB; Start 05/08/16 at 10:00 Betamethasone/ Clotrimazole (Lotrisone Cr) 1 applic BID PRN TOP RASH Last administered on 05/08/16at 15:39; Admin Dose 1 APPLIC; Start 05/08/16 at 10:30 Folic Acid (Folic Acid) 1 mg DAILY PO Last administered on 05/09/16at 10:44; Admin Dose 1 MG; Start 05/08/16 at 10:00 Zinc Sulfate (Zinc Sulfate) 220 mg DAILY PO Last administered on 05/09/16at 10: 44; Admin Dose 220 MG; Start 05/08/16 at 10:30 GEETA LEHMAN MD May 09, 2016 13:08
[2016-05-09] MEDS ORDERED: INSULIN ASPART [NOVOLOG] 3 ML PEN SC ONE (13:30)
[2016-05-09 16:03] VITALS: BP 197/83; RESP 18
[2016-05-09] MEDS ORDERED: DIPHENHYDRAMINE 50 MG INJ IV ONE (18:00)
[2016-05-09] MEDS: BETAMETHASONE/CLOTRIMAZOLE 15 GM CR TOP PRN ×2 (18:17→20:14)
[2016-05-09 20:00] VITALS: BP 143/63; RESP 19
[2016-05-09] MEDS: SENNA TAB PO SCH (20:06)
[2016-05-09] MEDS: ROSUVASTATIN CALCIUM 40 MG TABLET PO SCH (20:06)
[2016-05-09] MEDS: MONTELUKAST 10 MG TAB PO SCH (20:06)
[2016-05-09 21:38] VITALS: BP 160/72; PULSE 62
[2016-05-10] MEDS: ACCUCHECK AT 2AM (Patients on SS coverage) XX SCH (02:00)
[2016-05-10 06:20] VITALS: BP 174/68; PULSE 64
[2016-05-10] MEDS: PANTOPRAZOLE (EC) 40 MG TAB PO SCH (06:22)
[2016-05-10] MEDS: ERGOCALCIFEROL 50,000 UNIT CAP PO SCH (08:46)
[2016-05-10] MEDS: VALSARTAN 160 MG TAB PO SCH ×2 (08:46→21:13)
[2016-05-10] MEDS: LINAGLIPTIN 5 MG TABLET PO SCH (08:47)
[2016-05-10] MEDS: FUROSEMIDE 40 MG TAB PO SCH (08:47)
[2016-05-10] MEDS: ZINC SULFATE 220 MG CAP PO SCH (08:47)
[2016-05-10] MEDS: MULTIVITAMINS THERAPEUTIC TAB PO SCH (08:47)
[2016-05-10] MEDS: DUTASTERIDE 0.5 MG CAP PO SCH (08:47)
[2016-05-10] MEDS: ASCORBIC ACID 500 MG TAB PO SCH (08:48)
[2016-05-10] MEDS: DOCUSATE SODIUM 100 MG CAP PO SCH ×2 (08:48→21:06)
[2016-05-10] MEDS: POTASSIUM CHLORIDE (SR) 8 MEQ CAP PO SCH (08:48)
[2016-05-10] MEDS: FOLIC ACID 1 MG TAB PO SCH (08:48)
[2016-05-10] MEDS: AMLODIPINE 5 MG TAB PO SCH (08:48)
[2016-05-10] MEDS: CLOBETASOL 0.05% 15 GM OINT TOP SCH ×2 (08:50→21:19)
[2016-05-10] MEDS: DICLOFENAC SODIUM 1% GEL 100 GM TUBE TP SCH ×3 (08:51→21:19)
[2016-05-10] MEDS: INSULIN GLARGINE [LANtus] 3 ML PEN SC SCH (08:53)
[2016-05-10] MEDS: INSULIN ASPART [NOVOLOG] 3 ML PEN SC SCH ×3 (08:54→17:36)
[2016-05-10] MEDS: Insulin NOVOLOG SS MODERATE Algorithm (SS with meals and bedtime) SC SCH ×4 (08:55→21:18)
[2016-05-10] MEDS: OLOPATADINE 0.1% 5 ML OPH BOTH EYES SCH ×2 (08:55→21:20)
[2016-05-10] MEDS: NYSTATIN 30 GM POWDER BTL TOP SCH ×2 (08:56→21:21)
[2016-05-10] MEDS: COLLAGENASE 30 GM TUBE TOP SCH (08:56)
[2016-05-10] MEDS: BETAMETHASONE/CLOTRIMAZOLE 15 GM CR TOP PRN (08:56)
[2016-05-10 09:09] VITALS: BP 187/74; PULSE 62; RESP 18
[2016-05-10 09:15] VITALS: BP 187/74; RESP 19
[2016-05-10 10:28] VITALS: BP 138/57; PULSE 60
--- NOTE | 2016-05-10 12:39 | PN ---
Date/Time of Note Date/Time of Note DATE: 05/10/16 TIME: 12:36 Assessment/Plan VTE Prophylaxis VTE Prophylaxis Intervention: LMWH Lines/Catheters IV [facility] (from [facility] PICC Line Central line still needed: Yes Urinary Cath still in place: Yes Reason Cath still needed: urinary retention Assessment/Plan Problems: (1) BPH (benign prostatic hyperplasia) Status: Chronic Comment: On treatment and stable. 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 We have adjusted his regimen and his sugars have come down nicely (3) Diastolic dysfunction Status: Chronic Comment: Well-controlled Subjective 24 Hr Interval Summary Free Text/Dictation Patient is eating lunch and says hello. Otherwise orientation is somewhat limited Exam/Review of Systems Vital Signs Vitals Vital Signs Date Time Temp Pulse Resp B/P Pulse Ox O2 Delivery O2 Flow Rate FiO2 05/10/16 10:28 60 138/57 05/10/16 09:15 19 99 05/10/16 09:09 98.8 Room Air Intake and Output 05/09/16 05/09/16 05/10/16 15:00 23:00 07:00 Intake Total 1280 ml 480 ml 580 ml Output Total 1000 ml 1500 ml 1400 ml Balance 280 ml -1020 ml -820 ml Exam Constitutional: alert Respiratory: clear to auscultation, normal air movement Cardiovascular: nl pulses, regular rate and rhythm Results Result Diagram: 05/09/16 0730 05/09/16 1227 Results 24 hrs Laboratory Tests Test 05/09/16 16:43 05/09/16 19:58 05/10/16 01:08 05/10/16 01:30 Bedside Glucose 185 71 67 L 91 Test 05/10/16 06:37 05/10/16 07:20 05/10/16 11:37 Bedside Glucose 160 173 195 Medications Medications Current Medications Potassium Chloride (Micro-K) 8 meq DAILY PO Last administered on 05/10/16t 08:48 ; Admin Dose 8 MEQ; Start 05/08/16 at 09:00 Rosuvastatin Calcium (Crestor) 40 mg QHS PO Last administered on 05/09/16at 20: 06; Admin Dose 40 MG; Start 05/07/16 at 21:00 Valsartan (Diovan) 160 mg BID PO Last administered on 05/10/16 08:46; Admin Dose 160 MG; Start 05/07/16 at 21:00 Diclofenac Sodium (Voltaren 1% Gel) 2 gm TID TP Last administered on 05/10/16 12:25; Admin Dose 2 GM; Start 05/07/16 at 21:00 Montelukast Sodium (Singulair) 10 mg HS PO Last administered on 05/09/16at 20: 06; Admin Dose 10 MG; Start 05/07/16 at 21:00 Nitroglycerin (Nitroglycerin (Sl Tab) 0.4 Mg) 1 tab Q5M PRN SL CHEST PAIN; Start 05/07/16 at 20:30 Nystatin (Nystatin Powder) 1 applic BID TOP Last administered on 05/10/16 08:56 ; Admin Dose 1 APPLIC; Start 05/07/16 at 21:00 Olopatadine HCl (Patanol 0.1% Oph) 1 drop BID BOTH EYES Last administered on 08:55; Admin Dose 1 DROP; Start 05/07/16 at 21:00 Pantoprazole (Protonix Tab) 40 mg DAILY@06 PO Last administered on 05/10/16 06: 22; Admin Dose 40 MG; Start 05/08/16 at 06:00 Diagnostic Test (Pha) (Accucheck) 1 ea 02 XX ; Start 05/08/16 at 02:00 Miscellaneous Information 1 ea NOTE XX ; Start 05/07/16 at 20:30 Glucose (Glutose) 15 gm Q15M PRN PO DECREASED GLUCOSE; Start 05/07/16 at 20:30 Glucose (Glutose) 22.5 gm Q15M PRN PO DECREASED GLUCOSE; Start 05/07/16 at 20: 30 Dextrose (D50w Syringe) 25 ml Q15M PRN IV DECREASED GLUCOSE; Start 05/07/16 at 20:30 Dextrose (D50w Syringe) 50 ml Q15M PRN IV DECREASED GLUCOSE; Start 05/07/16 at 20:30 Glucagon (Glucagen) 1 mg Q15M PRN IM DECREASED GLUCOSE; Start 05/07/16 at 20: 30 Glucose (Glutose) 15 gm Q15M PRN BUCCAL DECREASED GLUCOSE; Start 05/07/16 at 20:30 Linagliptin (Tradjenta) 5 mg DAILY PO Last administered on 05/10/16 08:47; Admin Dose 5 MG; Start 05/08/16 at 09:00 Docusate Sodium (Colace) 100 mg Q12H PRN PO CONSTIPATION; Start 05/07/16 at 20 :30 Dutasteride (Avodart) 0.5 mg DAILY PO Last administered on 05/10/16 08:47; Admin Dose 0.5 MG; Start 05/08/16 at 09:00 Ergocalciferol (Drisdol) 50,000 unit [place]@09 PO Last administered on 05/10/16 08: 46; Admin Dose 50,000 UNIT; Start 05/10/16 at 09:00 Furosemide (Lasix) 40 mg DAILY PO Last administered on 05/10/16 08:47; Admin Dose 40 MG; Start 05/08/16 at 09:00 Hydralazine HCl (Apresoline) 10 mg Q8 PO Last administered on 05/10/16 06:22; Admin Dose 10 MG; Start 05/07/16 at 22:00 Acetaminophen (Tylenol Liquid) 650 mg Q6H PRN PO PAIN AND OR ELEVATED TEMP; Start 05/07/16 at 21:00 Amlodipine Besylate (Norvasc) 5 mg DAILY PO Last administered on 05/10/16 08:48 ; Admin Dose 5 MG; Start 05/08/16 at 09:00 Carvedilol (Coreg) 25 mg BID PO Last administered on 05/10/16 08:47; Admin Dose 25 MG; Start 05/07/16 at 21:00 Clobetasol Propionate (Temovate 0.05% Oint) 1 applic BID TOP Last administered on 05/10/16 08:50; Admin Dose 1 APPLIC; Start 05/07/16 at 21:00 Tramadol HCl (Ultram) 50 mg Q6H PRN PO PAIN Last administered on 05/09/16at 10: 41; Admin Dose 50 MG; Start 05/07/16 at 21:00 Docusate Sodium (Colace) 100 mg BID PO Last administered on 05/10/16 08:48; Admin Dose 100 MG; Start 05/08/16 at 09:00 Senna (Senokot) 1 tab HS PO Last administered on 05/09/16at 20:06; Admin Dose 1 TAB; Start 05/07/16 at 23:45 Bisacodyl (Dulcolax Supp) 10 mg DAILY PRN [place] CONSTIPATION; Start 05/07/16 at 23:45 Acetaminophen (Tylenol Tab) 650 mg Q4H PRN PO PAIN; Start 05/07/16 at 23:45 Magnesium Hydroxide (Milk Of Mag) 30 ml BID PRN PO CONSTIPATION Last administered on 05/09/16 20:08; Admin Dose 30 ML; Start 05/07/16 at 23:45 Lactulose (Enulose) 20 gm DAILY PRN PO CONSTIPATION Last administered on 18:46; Admin Dose 20 GM; Start 05/07/16 at 23:45 Collagenase (Santyl) 1 applic QAM TOP Last administered on 05/10/16 08:56; Admin Dose 1 APPLIC; Start 05/08/16 at 11:00 Ascorbic Acid (Vitamin C) 500 mg DAILY PO Last administered on 05/10/16 08:48; Admin Dose 500 MG; Start 05/08/16 at 10:00 Multivitamins Therapeutic (Theragran) 1 tab DAILY PO Last administered on 08:47; Admin Dose 1 TAB; Start 05/08/16 at 10:00 Betamethasone/ Clotrimazole (Lotrisone Cr) 1 applic BID PRN TOP RASH Last administered on 05/10/16 08:56; Admin Dose 1 APPLIC; Start 05/08/16 at 10:30 Folic Acid (Folic Acid) 1 mg DAILY PO Last administered on 05/10/16 08:48; Admin Dose 1 MG; Start 05/08/16 at 10:00 Zinc Sulfate (Zinc Sulfate) 220 mg DAILY PO Last administered on 05/10/16 08:47 ; Admin Dose 220 MG; Start 05/08/16 at 10:30 Insulin Glargine (Lantus) 20 unit QAM SC Last administered on 05/10/16 08:53; Admin Dose 20 UNIT; Start 05/10/16 at 09:00 GEETA LEHMAN MD May 10, 2016 12:39
[2016-05-10 14:15] VITALS: BP 123/56; PULSE 60
[2016-05-10 20:08] VITALS: BP 157/64; RESP 18
[2016-05-10] MEDS: MONTELUKAST 10 MG TAB PO SCH (21:06)
[2016-05-10] MEDS: ROSUVASTATIN CALCIUM 40 MG TABLET PO SCH (21:13)
[2016-05-10] MEDS: SENNA TAB PO SCH (21:13)
[2016-05-10] MEDS: ACETAMINOPHEN 325 MG TAB PO PRN (22:52)
[2016-05-11] MEDS: ACCUCHECK AT 2AM (Patients on SS coverage) XX SCH (02:00)
[2016-05-11] MEDS: PANTOPRAZOLE (EC) 40 MG TAB PO SCH (06:00)
[2016-05-11 07:23] LABS: BASOPHILS % 0.4 % (0.0-2.0); EOSINOPHILS # 0.1 10^3/ul (0.0-0.5); HEMATOCRIT 25.7 % (42.0-52.0); HEMOGLOBIN 8.5 g/dl (14.0-18.0); LYMPHOCYTES # 2.1 10^3/ul (0.8-2.9); LYMPHOCYTES % 28.3 % (15.0-51.0); MEAN CORPUSCULAR HEMOGLOBIN 30.9 pg (29.0-33.0); MEAN CORPUSCULAR HGB CONC 32.9 g/dl (32.0-37.0); MEAN CORPUSCULAR VOLUME 93.8 fl (82.0-101.0); MEAN PLATELET VOLUME 8.2 fl (7.4-10.4); MONOCYTE # 0.5 10^3/ul (0.3-0.9); MONOCYTES % 6.2 % (0.0-11.0); NEUTROPHIL # 4.6 10^3/ul (1.6-7.5); NEUTROPHILS % 63.1 % (39.0-77.0); PLATELET COUNT 175 10^3/UL (140-440); RED BLOOD COUNT 2.74 10^6/ul (4.70-6.10); RED CELL DISTRIBUTION WIDTH 14.8 % (11.5-14.5); UNCORRECTED WBC 7.3 10^3/ul (4.8-10.8); WHITE BLOOD COUNT 7.3 10^3/ul (4.8-10.8)
[2016-05-11 07:25] LABS: CONDITION 1; LH ANALYZER COMMENTS 1
[2016-05-11 07:30] VITALS: BP 175/69; RESP 18
[2016-05-11 07:45] LABS: POTASSIUM 4.3 mmol/L (3.5-5.1)
[2016-05-11 07:47] LABS: CREATININE 1.67 mg/dl (0.61-1.24)
[2016-05-11 07:48] LABS: CALCIUM 8.3 mg/dl (8.4-10.2)
[2016-05-11] MEDS: OLOPATADINE 0.1% 5 ML OPH BOTH EYES SCH ×2 (08:13→20:17)
[2016-05-11] MEDS: VALSARTAN 160 MG TAB PO SCH ×2 (08:13→20:17)
[2016-05-11] MEDS: DUTASTERIDE 0.5 MG CAP PO SCH (08:14)
[2016-05-11] MEDS: FUROSEMIDE 40 MG TAB PO SCH (08:14)
[2016-05-11] MEDS: FOLIC ACID 1 MG TAB PO SCH (08:14)
[2016-05-11] MEDS: ZINC SULFATE 220 MG CAP PO SCH (08:14)
[2016-05-11] MEDS: MULTIVITAMINS THERAPEUTIC TAB PO SCH (08:14)
[2016-05-11] MEDS: POTASSIUM CHLORIDE (SR) 8 MEQ CAP PO SCH (08:15)
[2016-05-11] MEDS: AMLODIPINE 5 MG TAB PO SCH (08:15)
[2016-05-11] MEDS: CLOBETASOL 0.05% 15 GM OINT TOP SCH ×2 (08:15→20:18)
[2016-05-11] MEDS: ASCORBIC ACID 500 MG TAB PO SCH (08:15)
[2016-05-11] MEDS: DOCUSATE SODIUM 100 MG CAP PO SCH ×2 (08:15→20:15)
[2016-05-11] MEDS: LINAGLIPTIN 5 MG TABLET PO SCH (08:15)
[2016-05-11] MEDS: COLLAGENASE 30 GM TUBE TOP SCH (08:16)
[2016-05-11] MEDS: NYSTATIN 30 GM POWDER BTL TOP SCH ×2 (08:16→20:15)
[2016-05-11] MEDS: Insulin NOVOLOG SS MODERATE Algorithm (SS with meals and bedtime) SC SCH ×4 (08:30→20:25)
[2016-05-11] MEDS: INSULIN GLARGINE [LANtus] 3 ML PEN SC SCH (08:30)
[2016-05-11] MEDS: INSULIN ASPART [NOVOLOG] 3 ML PEN SC SCH ×3 (08:30→16:35)
[2016-05-11] MEDS: DICLOFENAC SODIUM 1% GEL 100 GM TUBE TP SCH ×3 (09:30→20:14)
[2016-05-11 09:36] VITALS: BP 175/69; PULSE 60; RESP 18
--- NOTE | 2016-05-11 11:23 | CONS ---
Date/Time of Note Date/Time of Note DATE: 05/11/16 TIME: 11:22 Consult Date/Type/Reason Admit Date/Time May 07, 2016 at 19:15 Subjective Overall improving Objective min assist ambulation Vital Signs Date Time Temp Pulse Resp B/P Pulse Ox O2 Delivery O2 Flow Rate FiO2 05/11/16 09:36 97.9 60 18 175/69 98 Room Air Intake and Output 05/10/16 05/10/16 05/11/16 14:59 22:59 06:59 Intake Total 480 ml 240 ml 300 ml Output Total 1000 ml 700 ml Balance 480 ml -760 ml -400 ml Results/Medications Result Diagram: 05/11/16 0638 05/11/16 0638 Results 24 hrs Laboratory Tests Test 05/10/16 11:37 05/10/16 16:56 05/10/16 20:04 05/11/16 02:15 Bedside Glucose 195 155 212 193 Test 05/11/16 06:38 05/11/16 07:46 Anion Gap 13 Basophils # 0.0 Basophils % 0.4 Blood Morphology Comment Blood Urea Nitrogen 32 H Calcium Level 8.3 L Carbon Dioxide Level 29 Chloride Level 105 Creatinine 1.67 H Eosinophils # 0.1 Eosinophils % 2.0 Glucose Level 179 # Hematocrit 25.7 L Hemoglobin 8.5 L Lymphocytes # 2.1 Lymphocytes % 28.3 Mean Corpuscular Hemoglobin 30.9 Mean Corpuscular Hemoglobin Concent 32.9 Mean Corpuscular Volume 93.8 Mean Platelet Volume 8.2 Monocytes # 0.5 Monocytes % 6.2 Neutrophils # 4.6 Neutrophils % 63.1 Nucleated Red Blood Cells # 0.0 Nucleated Red Blood Cells % 0.0 Platelet Count 175 Potassium Level 4.3 Red Blood Count 2.74 L Red Cell Distribution Width 14.8 H Sodium Level 143 White Blood Count 7.3 Bedside Glucose 221 H Medications Current Medications Potassium Chloride (Micro-K) 8 meq DAILY PO Last administered on 05/11/16 08:15 ; Admin Dose 8 MEQ; Start 05/08/16 at 09:00 Rosuvastatin Calcium (Crestor) 40 mg QHS PO Last administered on 05/10/16 21:13 ; Admin Dose 40 MG; Start 05/07/16 at 21:00 Valsartan (Diovan) 160 mg BID PO Last administered on 05/11/16 08:13; Admin Dose 160 MG; Start 05/07/16 at 21:00 Diclofenac Sodium (Voltaren 1% Gel) 2 gm TID TP Last administered on 05/11/16 09:30; Admin Dose 2 GM; Start 05/07/16 at 21:00 Montelukast Sodium (Singulair) 10 mg HS PO Last administered on 05/10/16 21:06 ; Admin Dose 10 MG; Start 05/07/16 at 21:00 Nitroglycerin (Nitroglycerin (Sl Tab) 0.4 Mg) 1 tab Q5M PRN SL CHEST PAIN; Start 05/07/16 at 20:30 Nystatin (Nystatin Powder) 1 applic BID TOP Last administered on 05/11/16 08:16 ; Admin Dose 1 APPLIC; Start 05/07/16 at 21:00 Olopatadine HCl (Patanol 0.1% Oph) 1 drop BID BOTH EYES Last administered on 08:13; Admin Dose 1 DROP; Start 05/07/16 at 21:00 Pantoprazole (Protonix Tab) 40 mg DAILY@06 PO Last administered on 05/11/16 06: 00; Admin Dose 40 MG; Start 05/08/16 at 06:00 Diagnostic Test (Pha) (Accucheck) 1 ea 02 XX ; Start 05/08/16 at 02:00 Miscellaneous Information 1 ea NOTE XX ; Start 05/07/16 at 20:30 Glucose (Glutose) 15 gm Q15M PRN PO DECREASED GLUCOSE; Start 05/07/16 at 20:30 Glucose (Glutose) 22.5 gm Q15M PRN PO DECREASED GLUCOSE; Start 05/07/16 at 20: 30 Dextrose (D50w Syringe) 25 ml Q15M PRN IV DECREASED GLUCOSE; Start 05/07/16 at 20:30 Dextrose (D50w Syringe) 50 ml Q15M PRN IV DECREASED GLUCOSE; Start 05/07/16 at 20:30 Glucagon (Glucagen) 1 mg Q15M PRN IM DECREASED GLUCOSE; Start 05/07/16 at 20: 30 Glucose (Glutose) 15 gm Q15M PRN BUCCAL DECREASED GLUCOSE; Start 05/07/16 at 20:30 Linagliptin (Tradjenta) 5 mg DAILY PO Last administered on 05/11/16 08:15; Admin Dose 5 MG; Start 05/08/16 at 09:00 Docusate Sodium (Colace) 100 mg Q12H PRN PO CONSTIPATION; Start 05/07/16 at 20 :30 Dutasteride (Avodart) 0.5 mg DAILY PO Last administered on 05/11/16 08:14; Admin Dose 0.5 MG; Start 05/08/16 at 09:00 Ergocalciferol (Drisdol) 50,000 unit [place]@09 PO Last administered on 05/10/16 08: 46; Admin Dose 50,000 UNIT; Start 05/10/16 at 09:00 Furosemide (Lasix) 40 mg DAILY PO Last administered on 05/11/16 08:14; Admin Dose 40 MG; Start 05/08/16 at 09:00 Hydralazine HCl (Apresoline) 10 mg Q8 PO Last administered on 05/11/16 06:01; Admin Dose 10 MG; Start 05/07/16 at 22:00 Acetaminophen (Tylenol Liquid) 650 mg Q6H PRN PO PAIN AND OR ELEVATED TEMP; Start 05/07/16 at 21:00 Amlodipine Besylate (Norvasc) 5 mg DAILY PO Last administered on 05/11/16 08:15 ; Admin Dose 5 MG; Start 05/08/16 at 09:00 Carvedilol (Coreg) 25 mg BID PO Last administered on 05/11/16 08:14; Admin Dose 25 MG; Start 05/07/16 at 21:00 Clobetasol Propionate (Temovate 0.05% Oint) 1 applic BID TOP Last administered on 05/11/16 08:15; Admin Dose 1 APPLIC; Start 05/07/16 at 21:00 Tramadol HCl (Ultram) 50 mg Q6H PRN PO PAIN Last administered on 05/09/16at 10: 41; Admin Dose 50 MG; Start 05/07/16 at 21:00 Docusate Sodium (Colace) 100 mg BID PO Last administered on 05/11/16 08:15; Admin Dose 100 MG; Start 05/08/16 at 09:00 Senna (Senokot) 1 tab HS PO Last administered on 05/10/16 21:13; Admin Dose 1 TAB; Start 05/07/16 at 23:45 Bisacodyl (Dulcolax Supp) 10 mg DAILY PRN [place] CONSTIPATION; Start 05/07/16 at 23:45 Acetaminophen (Tylenol Tab) 650 mg Q4H PRN PO PAIN Last administered on 22:52; Admin Dose 650 MG; Start 05/07/16 at 23:45 Magnesium Hydroxide (Milk Of Mag) 30 ml BID PRN PO CONSTIPATION Last administered on 05/09/16at 20:08; Admin Dose 30 ML; Start 05/07/16 at 23:45 Lactulose (Enulose) 20 gm DAILY PRN PO CONSTIPATION Last administered on at 18:46; Admin Dose 20 GM; Start 05/07/16 at 23:45 Collagenase (Santyl) 1 applic QAM TOP Last administered on 05/11/16 08:16; Admin Dose 1 APPLIC; Start 05/08/16 at 11:00 Ascorbic Acid (Vitamin C) 500 mg DAILY PO Last administered on 05/11/16 08:15; Admin Dose 500 MG; Start 05/08/16 at 10:00 Multivitamins Therapeutic (Theragran) 1 tab DAILY PO Last administered on 08:14; Admin Dose 1 TAB; Start 05/08/16 at 10:00 Betamethasone/ Clotrimazole (Lotrisone Cr) 1 applic BID PRN TOP RASH Last administered on 05/10/16 08:56; Admin Dose 1 APPLIC; Start 05/08/16 at 10:30 Folic Acid (Folic Acid) 1 mg DAILY PO Last administered on 05/11/16 08:14; Admin Dose 1 MG; Start 05/08/16 at 10:00 Zinc Sulfate (Zinc Sulfate) 220 mg DAILY PO Last administered on 05/11/16 08:14 ; Admin Dose 220 MG; Start 05/08/16 at 10:30 Insulin Glargine (Lantus) 20 unit QAM SC Last administered on 05/11/16 08:30; Admin Dose 20 UNIT; Start 05/10/16 at 09:00 Assessment/Plan Additional Assessment/Plan Rehab- Subdural hematoma status post bur hole and drain with drain removal; Encephalopathy Progressing with rehab Stage III sacral decubitus ulcer- improving with wound care Hypertension. Dysphagia. Stage III sacral decubitus ulcer. Coronary artery disease with history of coronary artery bypass graft. History of carotid stenosis. BPH. Type 2 diabetes mellitus with uncontrolled blood sugars. Gastroesophageal reflux disease. History of spinal stenosis. History of gout. Anemia. History of aortic valve replacement. Impairments in self-care, mobility, and cognition. Acute on chronic kidney disease. MARY CARMEN GARCIA MD May 11, 2016 11:23
[2016-05-11 19:00] VITALS: BP 117/58; RESP 18
[2016-05-11] MEDS: MONTELUKAST 10 MG TAB PO SCH (20:15)
[2016-05-11] MEDS: SENNA TAB PO SCH (20:15)
[2016-05-11] MEDS: BETAMETHASONE/CLOTRIMAZOLE 15 GM CR TOP PRN (20:15)
[2016-05-11] MEDS: ROSUVASTATIN CALCIUM 40 MG TABLET PO SCH (20:16)
[2016-05-12] MEDS: ACCUCHECK AT 2AM (Patients on SS coverage) XX SCH (02:00)
[2016-05-12] MEDS: PANTOPRAZOLE (EC) 40 MG TAB PO SCH (06:00)
[2016-05-12 07:30] VITALS: BP 167/100; RESP 20
[2016-05-12] MEDS: INSULIN GLARGINE [LANtus] 3 ML PEN SC SCH (08:18)
[2016-05-12] MEDS: Insulin NOVOLOG SS MODERATE Algorithm (SS with meals and bedtime) SC SCH ×4 (08:19→21:08)
[2016-05-12] MEDS: INSULIN ASPART [NOVOLOG] 3 ML PEN SC SCH ×3 (08:19→16:55)
[2016-05-12] MEDS: DUTASTERIDE 0.5 MG CAP PO SCH (08:25)
[2016-05-12] MEDS: LINAGLIPTIN 5 MG TABLET PO SCH (08:26)
[2016-05-12] MEDS: VALSARTAN 160 MG TAB PO SCH ×2 (08:26→20:49)
[2016-05-12] MEDS: ZINC SULFATE 220 MG CAP PO SCH (08:27)
[2016-05-12] MEDS: FOLIC ACID 1 MG TAB PO SCH (08:28)
[2016-05-12] MEDS: DOCUSATE SODIUM 100 MG CAP PO SCH ×2 (08:28→20:48)
[2016-05-12] MEDS: FUROSEMIDE 40 MG TAB PO SCH (08:29)
[2016-05-12] MEDS: AMLODIPINE 5 MG TAB PO SCH (08:29)
[2016-05-12] MEDS: MULTIVITAMINS THERAPEUTIC TAB PO SCH (08:29)
[2016-05-12] MEDS: POTASSIUM CHLORIDE (SR) 8 MEQ CAP PO SCH (08:30)
[2016-05-12] MEDS: OLOPATADINE 0.1% 5 ML OPH BOTH EYES SCH ×2 (08:34→20:50)
[2016-05-12] MEDS: CLOBETASOL 0.05% 15 GM OINT TOP SCH ×2 (08:35→20:49)
[2016-05-12] MEDS: NYSTATIN 30 GM POWDER BTL TOP SCH ×2 (08:36→20:49)
[2016-05-12] MEDS: DICLOFENAC SODIUM 1% GEL 100 GM TUBE TP SCH ×3 (08:37→20:49)
[2016-05-12] MEDS: COLLAGENASE 30 GM TUBE TOP SCH (08:38)
[2016-05-12] MEDS: ASCORBIC ACID 500 MG TAB PO SCH (09:00)
--- NOTE | 2016-05-12 11:10 | CONS ---
Date/Time of Note Date/Time of Note DATE: 05/12/16 TIME: 11:10 Consult Date/Type/Reason Admit Date/Time May 07, 2016 at 19:15 Subjective Overall improving Objective Vital Signs Date Time Temp Pulse Resp B/P Pulse Ox O2 Delivery O2 Flow Rate FiO2 05/12/16 07:30 97.8 61 20 167/100 98 05/11/16 09:36 Room Air Intake and Output 05/11/16 05/11/16 05/12/16 15:00 23:00 07:00 Intake Total 800 ml 390 ml 900 ml Output Total 900 ml 400 ml Balance -100 ml -10 ml 900 ml INTERDISCIPLINARY TEAM CONFERENCE BOWEL- cont BLADDER-incont SKIN- Healing stage 3 OT- DRESSING-min/mod BATHING-mod TOILETING-max PT- BED MOBILITY-mod/min TRANSFERS-mod/min AMBULATION-mod/min 6 feet x 2 SPEECH- COGNITION-mod A/P- Interdisciplinary team conference held today. Please see interdisciplinary sheet. Working toward d.c. on 05/21 with post discharge follow up of physical therapy, occupational therapy. Results/Medications Result Diagram: 05/11/16 0638 05/11/16 0638 Results 24 hrs Laboratory Tests Test 05/11/16 12:15 05/11/16 16:30 05/11/16 20:12 05/12/16 07:26 Bedside Glucose 245 H 222 H 214 161 Medications Current Medications Potassium Chloride (Micro-K) 8 meq DAILY PO Last administered on 05/12/16 08:30 ; Admin Dose 8 MEQ; Start 05/08/16 at 09:00 Rosuvastatin Calcium (Crestor) 40 mg QHS PO Last administered on 05/11/16 20:16 ; Admin Dose 40 MG; Start 05/07/16 at 21:00 Valsartan (Diovan) 160 mg BID PO Last administered on 05/12/16 08:26; Admin Dose 160 MG; Start 05/07/16 at 21:00 Diclofenac Sodium (Voltaren 1% Gel) 2 gm TID TP Last administered on 05/12/16 08:37; Admin Dose 2 GM; Start 05/07/16 at 21:00 Montelukast Sodium (Singulair) 10 mg HS PO Last administered on 05/11/16 20:15 ; Admin Dose 10 MG; Start 05/07/16 at 21:00 Nitroglycerin (Nitroglycerin (Sl Tab) 0.4 Mg) 1 tab Q5M PRN SL CHEST PAIN; Start 05/07/16 at 20:30 Nystatin (Nystatin Powder) 1 applic BID TOP Last administered on 05/12/16 08:36 ; Admin Dose 1 APPLIC; Start 05/07/16 at 21:00 Olopatadine HCl (Patanol 0.1% Oph) 1 drop BID BOTH EYES Last administered on 08:34; Admin Dose 1 DROP; Start 05/07/16 at 21:00 Pantoprazole (Protonix Tab) 40 mg DAILY@06 PO Last administered on 05/11/16 06: 00; Admin Dose 40 MG; Start 05/08/16 at 06:00 Diagnostic Test (Pha) (Accucheck) 1 ea 02 XX ; Start 05/08/16 at 02:00 Miscellaneous Information 1 ea NOTE XX ; Start 05/07/16 at 20:30 Glucose (Glutose) 15 gm Q15M PRN PO DECREASED GLUCOSE; Start 05/07/16 at 20:30 Glucose (Glutose) 22.5 gm Q15M PRN PO DECREASED GLUCOSE; Start 05/07/16 at 20: 30 Dextrose (D50w Syringe) 25 ml Q15M PRN IV DECREASED GLUCOSE; Start 05/07/16 at 20:30 Dextrose (D50w Syringe) 50 ml Q15M PRN IV DECREASED GLUCOSE; Start 05/07/16 at 20:30 Glucagon (Glucagen) 1 mg Q15M PRN IM DECREASED GLUCOSE; Start 05/07/16 at 20: 30 Glucose (Glutose) 15 gm Q15M PRN BUCCAL DECREASED GLUCOSE; Start 05/07/16 at 20:30 Linagliptin (Tradjenta) 5 mg DAILY PO Last administered on 05/12/16 08:26; Admin Dose 5 MG; Start 05/08/16 at 09:00 Docusate Sodium (Colace) 100 mg Q12H PRN PO CONSTIPATION; Start 05/07/16 at 20 :30 Dutasteride (Avodart) 0.5 mg DAILY PO Last administered on 05/12/16 08:25; Admin Dose 0.5 MG; Start 05/08/16 at 09:00 Ergocalciferol (Drisdol) 50,000 unit [place]@09 PO Last administered on 05/10/16 08: 46; Admin Dose 50,000 UNIT; Start 05/10/16 at 09:00 Furosemide (Lasix) 40 mg DAILY PO Last administered on 05/12/16 08:29; Admin Dose 40 MG; Start 05/08/16 at 09:00 Hydralazine HCl (Apresoline) 10 mg Q8 PO Last administered on 05/11/16 13:15; Admin Dose 10 MG; Start 05/07/16 at 22:00 Acetaminophen (Tylenol Liquid) 650 mg Q6H PRN PO PAIN AND OR ELEVATED TEMP; Start 05/07/16 at 21:00 Amlodipine Besylate (Norvasc) 5 mg DAILY PO Last administered on 05/12/16 08:29 ; Admin Dose 5 MG; Start 05/08/16 at 09:00 Carvedilol (Coreg) 25 mg BID PO Last administered on 05/12/16 08:27; Admin Dose 25 MG; Start 05/07/16 at 21:00 Clobetasol Propionate (Temovate 0.05% Oint) 1 applic BID TOP Last administered on 05/12/16 08:35; Admin Dose 1 APPLIC; Start 05/07/16 at 21:00 Tramadol HCl (Ultram) 50 mg Q6H PRN PO PAIN Last administered on 05/09/16at 10: 41; Admin Dose 50 MG; Start 05/07/16 at 21:00 Docusate Sodium (Colace) 100 mg BID PO Last administered on 05/12/16 08:28; Admin Dose 100 MG; Start 05/08/16 at 09:00 Senna (Senokot) 1 tab HS PO Last administered on 05/11/16 20:15; Admin Dose 1 TAB; Start 05/07/16 at 23:45 Bisacodyl (Dulcolax Supp) 10 mg DAILY PRN [place] CONSTIPATION; Start 05/07/16 at 23:45 Acetaminophen (Tylenol Tab) 650 mg Q4H PRN PO PAIN Last administered on 22:52; Admin Dose 650 MG; Start 05/07/16 at 23:45 Magnesium Hydroxide (Milk Of Mag) 30 ml BID PRN PO CONSTIPATION Last administered on 05/09/16at 20:08; Admin Dose 30 ML; Start 05/07/16 at 23:45 Lactulose (Enulose) 20 gm DAILY PRN PO CONSTIPATION Last administered on at 18:46; Admin Dose 20 GM; Start 05/07/16 at 23:45 Collagenase (Santyl) 1 applic QAM TOP Last administered on 05/12/16 08:38; Admin Dose 1 APPLIC; Start 05/08/16 at 11:00 Ascorbic Acid (Vitamin C) 500 mg DAILY PO Last administered on 05/11/16 08:15; Admin Dose 500 MG; Start 05/08/16 at 10:00 Multivitamins Therapeutic (Theragran) 1 tab DAILY PO Last administered on 08:29; Admin Dose 1 TAB; Start 05/08/16 at 10:00 Betamethasone/ Clotrimazole (Lotrisone Cr) 1 applic BID PRN TOP RASH Last administered on 05/11/16 20:15; Admin Dose 1 APPLIC; Start 05/08/16 at 10:30 Folic Acid (Folic Acid) 1 mg DAILY PO Last administered on 05/12/16 08:28; Admin Dose 1 MG; Start 05/08/16 at 10:00 Zinc Sulfate (Zinc Sulfate) 220 mg DAILY PO Last administered on 05/12/16 08:27 ; Admin Dose 220 MG; Start 05/08/16 at 10:30 Insulin Glargine (Lantus) 20 unit QAM SC Last administered on 05/12/16 08:18; Admin Dose 20 UNIT; Start 05/10/16 at 09:00 MARY CARMEN GARCIA MD May 12, 2016 11:10
--- NOTE | 2016-05-12 12:23 | PN ---
Date/Time of Note Date/Time of Note DATE: 05/12/16 TIME: 12:21 Assessment/Plan VTE Prophylaxis VTE Prophylaxis Intervention: SCD's Lines/Catheters IV Catheter Type (from Nrs): PICC Line Central line still needed: No Urinary Cath still in place: Yes Reason Cath still needed: urinary retention Assessment/Plan Chief Complaint/Hosp Course ASSESSMENT AND PLAN: 1. Status post subdural hematoma and midline shift status post left frontal duane hole and placement of subdural drain. Neurosurgery was consulted. The patient is stable. Continue physical therapy. 2. Encephalopathy, resolving. 3. Diabetes mellitus. Continue medical management with Tradjenta, Lantus, insulin sliding scale, NovoLog. 4. Chronic kidney insufficiency. Continue to monitor. 5. History of coronary artery disease status post coronary artery bypass graft. Continue Coreg and statin. Unfortunately, the patient does not qualify for any anticoagulation or antiplatelet secondary to subdural hematoma. 6. Gastroesophageal reflux disease. Continue PPI. 7. History of aortic valve replacement as above. The patient does not qualify for any anticoagulation at this time secondary to subdural hematoma. 8. Gout. Continue medical management. 9. Benign prostatic hypertrophy. Continue avodart. 10. Anemia of chronic disease. Continue to monitor. If patient's hemoglobin is less than 7.5, we will transfuse. We will continue to monitor patient closely. Further recommendations, management, and treatment as per clinical course. Problems: Subjective 24 Hr Interval Summary Free Text/Dictation Overall improving Denies of any chest pain or shortness of breath Min assist with ambulation Exam/Review of Systems Vital Signs Vitals Vital Signs Date Time Temp Pulse Resp B/P Pulse Ox O2 Delivery O2 Flow Rate FiO2 05/12/16 07:30 97.8 61 20 167/100 98 05/11/16 09:36 Room Air Intake and Output 05/11/16 05/11/16 05/12/16 15:00 23:00 07:00 Intake Total 800 ml 390 ml 900 ml Output Total 900 ml 400 ml Balance -100 ml -10 ml 900 ml Exam General: The patient is well-developed, Not in acute distress. HEENT: Atraumatic, normocephalic. The pupils are equal and round . Neck: Supple with full range of motion. Chest: Normal expansion of the thorax during inspiration Lungs: Clear to auscultation bilaterally Heart: Normal S1-S2, Regular rhythm and rate. Abdomen: Soft , nontender, nondistended , bowel sounds are present. Extremities: Normal to inspection, no edema no cyanosis Neurologic: Normal mental status,The patient is awake, alert and oriented . Results Result Diagram: 05/11/16 0638 05/11/16 0638 Results 24 hrs Laboratory Tests Test 05/11/16 16:30 05/11/16 20:12 05/12/16 07:26 05/12/16 11:41 Bedside Glucose 222 H 214 161 253 H Medications Medications Current Medications Potassium Chloride (Micro-K) 8 meq DAILY PO Last administered on 05/12/16 08:30 ; Admin Dose 8 MEQ; Start 05/08/16 at 09:00 Rosuvastatin Calcium (Crestor) 40 mg QHS PO Last administered on 05/11/16 20:16 ; Admin Dose 40 MG; Start 05/07/16 at 21:00 Valsartan (Diovan) 160 mg BID PO Last administered on 05/12/16 08:26; Admin Dose 160 MG; Start 05/07/16 at 21:00 Diclofenac Sodium (Voltaren 1% Gel) 2 gm TID TP Last administered on 05/12/16 08:37; Admin Dose 2 GM; Start 05/07/16 at 21:00 Montelukast Sodium (Singulair) 10 mg HS PO Last administered on 05/11/16 20:15 ; Admin Dose 10 MG; Start 05/07/16 at 21:00 Nitroglycerin (Nitroglycerin (Sl Tab) 0.4 Mg) 1 tab Q5M PRN SL CHEST PAIN; Start 05/07/16 at 20:30 Nystatin (Nystatin Powder) 1 applic BID TOP Last administered on 05/12/16 08:36 ; Admin Dose 1 APPLIC; Start 05/07/16 at 21:00 Olopatadine HCl (Patanol 0.1% Oph) 1 drop BID BOTH EYES Last administered on 08:34; Admin Dose 1 DROP; Start 05/07/16 at 21:00 Pantoprazole (Protonix Tab) 40 mg DAILY@06 PO Last administered on 05/11/16 06: 00; Admin Dose 40 MG; Start 05/08/16 at 06:00 Diagnostic Test (Pha) (Accucheck) 1 ea 02 XX ; Start 05/08/16 at 02:00 Miscellaneous Information 1 ea NOTE XX ; Start 05/07/16 at 20:30 Glucose (Glutose) 15 gm Q15M PRN PO DECREASED GLUCOSE; Start 05/07/16 at 20:30 Glucose (Glutose) 22.5 gm Q15M PRN PO DECREASED GLUCOSE; Start 05/07/16 at 20: 30 Dextrose (D50w Syringe) 25 ml Q15M PRN IV DECREASED GLUCOSE; Start 05/07/16 at 20:30 Dextrose (D50w Syringe) 50 ml Q15M PRN IV DECREASED GLUCOSE; Start 05/07/16 at 20:30 Glucagon (Glucagen) 1 mg Q15M PRN IM DECREASED GLUCOSE; Start 05/07/16 at 20: 30 Glucose (Glutose) 15 gm Q15M PRN BUCCAL DECREASED GLUCOSE; Start 05/07/16 at 20:30 Linagliptin (Tradjenta) 5 mg DAILY PO Last administered on 05/12/16 08:26; Admin Dose 5 MG; Start 05/08/16 at 09:00 Docusate Sodium (Colace) 100 mg Q12H PRN PO CONSTIPATION; Start 05/07/16 at 20 :30 Dutasteride (Avodart) 0.5 mg DAILY PO Last administered on 05/12/16 08:25; Admin Dose 0.5 MG; Start 05/08/16 at 09:00 Ergocalciferol (Drisdol) 50,000 unit [place]@09 PO Last administered on 05/10/16 08: 46; Admin Dose 50,000 UNIT; Start 05/10/16 at 09:00 Furosemide (Lasix) 40 mg DAILY PO Last administered on 05/12/16 08:29; Admin Dose 40 MG; Start 05/08/16 at 09:00 Hydralazine HCl (Apresoline) 10 mg Q8 PO Last administered on 05/11/16 13:15; Admin Dose 10 MG; Start 05/07/16 at 22:00 Acetaminophen (Tylenol Liquid) 650 mg Q6H PRN PO PAIN AND OR ELEVATED TEMP; Start 05/07/16 at 21:00 Amlodipine Besylate (Norvasc) 5 mg DAILY PO Last administered on 05/12/16 08:29 ; Admin Dose 5 MG; Start 05/08/16 at 09:00 Carvedilol (Coreg) 25 mg BID PO Last administered on 05/12/16 08:27; Admin Dose 25 MG; Start 05/07/16 at 21:00 Clobetasol Propionate (Temovate 0.05% Oint) 1 applic BID TOP Last administered on 05/12/16 08:35; Admin Dose 1 APPLIC; Start 05/07/16 at 21:00 Tramadol HCl (Ultram) 50 mg Q6H PRN PO PAIN Last administered on 05/09/16at 10: 41; Admin Dose 50 MG; Start 05/07/16 at 21:00 Docusate Sodium (Colace) 100 mg BID PO Last administered on 05/12/16 08:28; Admin Dose 100 MG; Start 05/08/16 at 09:00 Senna (Senokot) 1 tab HS PO Last administered on 05/11/16 20:15; Admin Dose 1 TAB; Start 05/07/16 at 23:45 Bisacodyl (Dulcolax Supp) 10 mg DAILY PRN [place] CONSTIPATION; Start 05/07/16 at 23:45 Acetaminophen (Tylenol Tab) 650 mg Q4H PRN PO PAIN Last administered on 22:52; Admin Dose 650 MG; Start 05/07/16 at 23:45 Magnesium Hydroxide (Milk Of Mag) 30 ml BID PRN PO CONSTIPATION Last administered on 05/09/16 20:08; Admin Dose 30 ML; Start 05/07/16 at 23:45 Lactulose (Enulose) 20 gm DAILY PRN PO CONSTIPATION Last administered on at 18:46; Admin Dose 20 GM; Start 05/07/16 at 23:45 Collagenase (Santyl) 1 applic QAM TOP Last administered on 05/12/16 08:38; Admin Dose 1 APPLIC; Start 05/08/16 at 11:00 Ascorbic Acid (Vitamin C) 500 mg DAILY PO Last administered on 05/12/16 09:00; Admin Dose 500 MG; Start 05/08/16 at 10:00 Multivitamins Therapeutic (Theragran) 1 tab DAILY PO Last administered on 08:29; Admin Dose 1 TAB; Start 05/08/16 at 10:00 Betamethasone/ Clotrimazole (Lotrisone Cr) 1 applic BID PRN TOP RASH Last administered on 05/11/16 20:15; Admin Dose 1 APPLIC; Start 05/08/16 at 10:30 Folic Acid (Folic Acid) 1 mg DAILY PO Last administered on 05/12/16 08:28; Admin Dose 1 MG; Start 05/08/16 at 10:00 Zinc Sulfate (Zinc Sulfate) 220 mg DAILY PO Last administered on 05/12/16 08:27 ; Admin Dose 220 MG; Start 05/08/16 at 10:30 Insulin Glargine (Lantus) 20 unit QAM SC Last administered on 05/12/16 08:18; Admin Dose 20 UNIT; Start 05/10/16 at 09:00 GLEN DOMINGO MD May 12, 2016 12:23
[2016-05-12] MEDS: traMADol 50 MG TAB PO PRN (12:45)
[2016-05-12 19:56] VITALS: BP 137/63; RESP 22
[2016-05-12 20:00] VITALS: BP 152/68; PULSE 62
[2016-05-12] MEDS: SENNA TAB PO SCH (20:48)
[2016-05-12] MEDS: ROSUVASTATIN CALCIUM 40 MG TABLET PO SCH (20:48)
[2016-05-12] MEDS: MONTELUKAST 10 MG TAB PO SCH (20:49)
[2016-05-12] MEDS: ACETAMINOPHEN 325 MG TAB PO PRN (22:16)
[2016-05-13] MEDS: ACCUCHECK AT 2AM (Patients on SS coverage) XX SCH (02:00)
--- NOTE | 2016-05-13 02:12 | RADRPT ---
PROCEDURE: XR Chest. CLINICAL INDICATION: PICC line removal. TECHNIQUE: AP Portable chest. COMPARISON: 05/02/2016 FINDINGS: There is moderate to marked cardiomegaly. There is mild pulmonary vascular congestion. The osseous structures are unremarkable. Prior median sternotomy is noted. There are no definite radiopaque fo reign bodies corresponding to a PICC line tip. IMPRESSION: Mild pulmonary vascular congestion. RPTAT: HIKT .Pj Wing MD, MD Date Time Electronically viewed and signed by .Pj Wing MD, on 05/13/2016 02:12 .T/
--- NOTE | 2016-05-13 02:15 | RADRPT ---
PROCEDURE: XR humerus. CLINICAL INDICATION: PICC line removal with missing PICC line tip. TECHNIQUE: Two views of the right humerus were performed. COMPARISON: There are no similar studies submitted for comparison. FINDINGS: There is normal bone mineralization.There is no acute fracture or dislocation.No osseous lesion is i dentified. There are no radiopaque foreign bodies. IMPRESSION: No radiopaque foreign bodies. RPTAT: HIKT .Pj Wing MD, MD Date Time Electronically viewed and signed by .Pj Wing MD, on 05/13/2016 02:14 .T/
[2016-05-13 06:51] VITALS: BP 154/71; PULSE 70
[2016-05-13] MEDS: PANTOPRAZOLE (EC) 40 MG TAB PO SCH (06:52)
[2016-05-13 07:09] LABS: BASOPHILS % 0.5 % (0.0-2.0); EOSINOPHILS # 0.1 10^3/ul (0.0-0.5); EOSINOPHILS % 1.6 % (0.0-7.0); HEMOGLOBIN 8.9 g/dl (14.0-18.0); LYMPHOCYTES # 2.3 10^3/ul (0.8-2.9); LYMPHOCYTES % 33.7 % (15.0-51.0); MEAN CORPUSCULAR HEMOGLOBIN 30.7 pg (29.0-33.0); MEAN CORPUSCULAR HGB CONC 32.9 g/dl (32.0-37.0); MEAN CORPUSCULAR VOLUME 93.5 fl (82.0-101.0); MEAN PLATELET VOLUME 8.4 fl (7.4-10.4); MONOCYTE # 0.5 10^3/ul (0.3-0.9); MONOCYTES % 7.7 % (0.0-11.0); NEUTROPHIL # 3.9 10^3/ul (1.6-7.5); NEUTROPHILS % 56.5 % (39.0-77.0); PLATELET COUNT 170 10^3/UL (140-440); RED BLOOD COUNT 2.88 10^6/ul (4.70-6.10); RED CELL DISTRIBUTION WIDTH 14.6 % (11.5-14.5); UNCORRECTED WBC 6.9 10^3/ul (4.8-10.8); WHITE BLOOD COUNT 6.9 10^3/ul (4.8-10.8)
[2016-05-13 07:21] LABS: CONDITION 1; LH ANALYZER COMMENTS 1
[2016-05-13 07:30] VITALS: BP 121/56; RESP 20
[2016-05-13 08:00] VITALS: BP 121/56; PULSE 67; RESP 18
[2016-05-13] MEDS: Insulin NOVOLOG SS MODERATE Algorithm (SS with meals and bedtime) SC SCH ×4 (08:53→21:00)
[2016-05-13] MEDS: INSULIN GLARGINE [LANtus] 3 ML PEN SC SCH (08:54)
[2016-05-13] MEDS: INSULIN ASPART [NOVOLOG] 3 ML PEN SC SCH ×3 (08:54→17:31)
[2016-05-13] MEDS: ASCORBIC ACID 500 MG TAB PO SCH (08:55)
[2016-05-13] MEDS: LINAGLIPTIN 5 MG TABLET PO SCH (08:55)
[2016-05-13] MEDS: ZINC SULFATE 220 MG CAP PO SCH (08:55)
[2016-05-13] MEDS: MULTIVITAMINS THERAPEUTIC TAB PO SCH (08:55)
[2016-05-13] MEDS: FOLIC ACID 1 MG TAB PO SCH (08:55)
[2016-05-13] MEDS: POTASSIUM CHLORIDE (SR) 8 MEQ CAP PO SCH (08:56)
[2016-05-13] MEDS: DOCUSATE SODIUM 100 MG CAP PO SCH ×2 (08:56→20:36)
[2016-05-13] MEDS: FUROSEMIDE 40 MG TAB PO SCH (08:56)
[2016-05-13] MEDS: VALSARTAN 160 MG TAB PO SCH ×2 (08:58→20:39)
[2016-05-13] MEDS: DUTASTERIDE 0.5 MG CAP PO SCH (09:00)
[2016-05-13] MEDS: NYSTATIN 30 GM POWDER BTL TOP SCH ×2 (09:00→21:47)
[2016-05-13] MEDS: OLOPATADINE 0.1% 5 ML OPH BOTH EYES SCH ×2 (09:00→20:42)
[2016-05-13] MEDS: CLOBETASOL 0.05% 15 GM OINT TOP SCH ×2 (09:00→21:46)
--- NOTE | 2016-05-13 11:04 | CONS ---
Date/Time of Note Date/Time of Note DATE: 05/13/16 TIME: 11:02 Consult Date/Type/Reason Admit Date/Time May 07, 2016 at 19:15 Subjective Smiling, comfortable Objective pulm- CTA card- S1S2 min/mod transfer Vital Signs Date Time Temp Pulse Resp B/P Pulse Ox O2 Delivery O2 Flow Rate FiO2 05/13/16 08:00 98.5 67 18 121/56 96 Room Air Intake and Output 05/12/16 05/12/16 05/13/16 15:00 23:00 07:00 Intake Total 1250 ml Output Total 750 ml Balance 500 ml Results/Medications Result Diagram: 05/13/16 0616 05/11/16 0638 Results 24 hrs Laboratory Tests Test 05/12/16 11:41 05/12/16 16:29 05/12/16 20:19 05/13/16 02:28 Bedside Glucose 253 H 169 227 H 174 Test 05/13/16 06:16 05/13/16 07:58 Basophils # 0.0 Basophils % 0.5 Blood Morphology Comment Eosinophils # 0.1 Eosinophils % 1.6 Hematocrit 27.0 L Hemoglobin 8.9 L Lymphocytes # 2.3 Lymphocytes % 33.7 Mean Corpuscular Hemoglobin 30.7 Mean Corpuscular Hemoglobin Concent 32.9 Mean Corpuscular Volume 93.5 Mean Platelet Volume 8.4 Monocytes # 0.5 Monocytes % 7.7 Neutrophils # 3.9 Neutrophils % 56.5 Nucleated Red Blood Cells # 0.0 Nucleated Red Blood Cells % 0.0 Platelet Count 170 Red Blood Count 2.88 L Red Cell Distribution Width 14.6 H White Blood Count 6.9 Bedside Glucose 226 H Medications Current Medications Potassium Chloride (Micro-K) 8 meq DAILY PO Last administered on 05/13/16 08:56 ; Admin Dose 8 MEQ; Start 05/08/16 at 09:00 Rosuvastatin Calcium (Crestor) 40 mg QHS PO Last administered on 05/12/16 20:48 ; Admin Dose 40 MG; Start 05/07/16 at 21:00 Valsartan (Diovan) 160 mg BID PO Last administered on 05/13/16 08:58; Admin Dose 160 MG; Start 05/07/16 at 21:00 Diclofenac Sodium (Voltaren 1% Gel) 2 gm TID TP Last administered on 05/12/16 20:49; Admin Dose 2 GM; Start 05/07/16 at 21:00 Montelukast Sodium (Singulair) 10 mg HS PO Last administered on 05/12/16 20:49 ; Admin Dose 10 MG; Start 05/07/16 at 21:00 Nitroglycerin (Nitroglycerin (Sl Tab) 0.4 Mg) 1 tab Q5M PRN SL CHEST PAIN; Start 05/07/16 at 20:30 Nystatin (Nystatin Powder) 1 applic BID TOP Last administered on 05/12/16 20:49 ; Admin Dose 1 APPLIC; Start 05/07/16 at 21:00 Olopatadine HCl (Patanol 0.1% Oph) 1 drop BID BOTH EYES Last administered on 20:50; Admin Dose 1 DROP; Start 05/07/16 at 21:00 Pantoprazole (Protonix Tab) 40 mg DAILY@06 PO Last administered on 05/13/16 06: 52; Admin Dose 40 MG; Start 05/08/16 at 06:00 Diagnostic Test (Pha) (Accucheck) 1 ea 02 XX ; Start 05/08/16 at 02:00 Miscellaneous Information 1 ea NOTE XX ; Start 05/07/16 at 20:30 Glucose (Glutose) 15 gm Q15M PRN PO DECREASED GLUCOSE; Start 05/07/16 at 20:30 Glucose (Glutose) 22.5 gm Q15M PRN PO DECREASED GLUCOSE; Start 05/07/16 at 20: 30 Dextrose (D50w Syringe) 25 ml Q15M PRN IV DECREASED GLUCOSE; Start 05/07/16 at 20:30 Dextrose (D50w Syringe) 50 ml Q15M PRN IV DECREASED GLUCOSE; Start 05/07/16 at 20:30 Glucagon (Glucagen) 1 mg Q15M PRN IM DECREASED GLUCOSE; Start 05/07/16 at 20: 30 Glucose (Glutose) 15 gm Q15M PRN BUCCAL DECREASED GLUCOSE; Start 05/07/16 at 20:30 Linagliptin (Tradjenta) 5 mg DAILY PO Last administered on 05/13/16 08:55; Admin Dose 5 MG; Start 05/08/16 at 09:00 Docusate Sodium (Colace) 100 mg Q12H PRN PO CONSTIPATION; Start 05/07/16 at 20 :30 Dutasteride (Avodart) 0.5 mg DAILY PO Last administered on 05/13/16 09:00; Admin Dose 0.5 MG; Start 05/08/16 at 09:00 Ergocalciferol (Drisdol) 50,000 unit [place]@09 PO Last administered on 05/10/16 08: 46; Admin Dose 50,000 UNIT; Start 05/10/16 at 09:00 Furosemide (Lasix) 40 mg DAILY PO Last administered on 05/13/16 08:56; Admin Dose 40 MG; Start 05/08/16 at 09:00 Hydralazine HCl (Apresoline) 10 mg Q8 PO Last administered on 05/13/16 06:52; Admin Dose 10 MG; Start 05/07/16 at 22:00 Acetaminophen (Tylenol Liquid) 650 mg Q6H PRN PO PAIN AND OR ELEVATED TEMP; Start 05/07/16 at 21:00 Amlodipine Besylate (Norvasc) 5 mg DAILY PO Last administered on 05/12/16 08:29 ; Admin Dose 5 MG; Start 05/08/16 at 09:00 Carvedilol (Coreg) 25 mg BID PO Last administered on 05/12/16 20:48; Admin Dose 25 MG; Start 05/07/16 at 21:00 Clobetasol Propionate (Temovate 0.05% Oint) 1 applic BID TOP Last administered on 05/12/16 20:49; Admin Dose 1 APPLIC; Start 05/07/16 at 21:00 Tramadol HCl (Ultram) 50 mg Q6H PRN PO PAIN Last administered on 05/12/16 12:45 ; Admin Dose 50 MG; Start 05/07/16 at 21:00 Docusate Sodium (Colace) 100 mg BID PO Last administered on 05/13/16 08:56; Admin Dose 100 MG; Start 05/08/16 at 09:00 Senna (Senokot) 1 tab HS PO Last administered on 05/12/16 20:48; Admin Dose 1 TAB; Start 05/07/16 at 23:45 Bisacodyl (Dulcolax Supp) 10 mg DAILY PRN [place] CONSTIPATION; Start 05/07/16 at 23:45 Acetaminophen (Tylenol Tab) 650 mg Q4H PRN PO PAIN Last administered on 22:16; Admin Dose 650 MG; Start 05/07/16 at 23:45 Magnesium Hydroxide (Milk Of Mag) 30 ml BID PRN PO CONSTIPATION Last administered on 05/09/16 20:08; Admin Dose 30 ML; Start 05/07/16 at 23:45 Lactulose (Enulose) 20 gm DAILY PRN PO CONSTIPATION Last administered on 18:46; Admin Dose 20 GM; Start 05/07/16 at 23:45 Collagenase (Santyl) 1 applic QAM TOP Last administered on 05/12/16 08:38; Admin Dose 1 APPLIC; Start 05/08/16 at 11:00 Ascorbic Acid (Vitamin C) 500 mg DAILY PO Last administered on 05/13/16 08:55; Admin Dose 500 MG; Start 05/08/16 at 10:00 Multivitamins Therapeutic (Theragran) 1 tab DAILY PO Last administered on 08:55; Admin Dose 1 TAB; Start 05/08/16 at 10:00 Betamethasone/ Clotrimazole (Lotrisone Cr) 1 applic BID PRN TOP RASH Last administered on 05/11/16 20:15; Admin Dose 1 APPLIC; Start 05/08/16 at 10:30 Folic Acid (Folic Acid) 1 mg DAILY PO Last administered on 05/13/16 08:55; Admin Dose 1 MG; Start 05/08/16 at 10:00 Zinc Sulfate (Zinc Sulfate) 220 mg DAILY PO Last administered on 05/13/16 08:55 ; Admin Dose 220 MG; Start 05/08/16 at 10:30 Insulin Glargine (Lantus) 20 unit QAM SC Last administered on 05/13/16 08:54; Admin Dose 20 UNIT; Start 05/10/16 at 09:00 Assessment/Plan Additional Assessment/Plan Rehab- SDH; Encephalopathy Overall improving\ Integ- steady improvement in stage 3 decub with wound care HTN CAD DM Spinal Stenosis MARY CARMEN GARCIA MD May 13, 2016 11:03
[2016-05-13] MEDS: DICLOFENAC SODIUM 1% GEL 100 GM TUBE TP SCH ×3 (13:00→21:46)
[2016-05-13] MEDS: AMLODIPINE 5 MG TAB PO SCH (13:28)
[2016-05-13] MEDS: COLLAGENASE 30 GM TUBE TOP SCH (13:32)
--- NOTE | 2016-05-13 16:25 | PN ---
Date/Time of Note Date/Time of Note DATE: 05/13/16 TIME: 16:22 Assessment/Plan VTE Prophylaxis VTE Prophylaxis Intervention: SCD's Lines/Catheters IV Catheter Type (from Nrs): PICC Line Central line still needed: No Urinary Cath still in place: Yes Reason Cath still needed: other (indicate) Assessment/Plan Chief Complaint/Hosp Course ASSESSMENT AND PLAN: 1. Status post subdural hematoma and midline shift status post left frontal duane hole and placement of subdural drain. Neurosurgery was consulted. The patient is stable. Continue physical therapy. 2. Encephalopathy, resolving. 3. Diabetes mellitus. Continue medical management with Tradjenta, Lantus, insulin sliding scale, NovoLog. 4. Chronic kidney insufficiency. Continue to monitor. 5. History of coronary artery disease status post coronary artery bypass graft. Continue Coreg and statin. Unfortunately, the patient does not qualify for any anticoagulation or antiplatelet secondary to subdural hematoma. 6. Gastroesophageal reflux disease. Continue PPI. 7. History of aortic valve replacement as above. The patient does not qualify for any anticoagulation at this time secondary to subdural hematoma. 8. Gout. Continue medical management. 9. Benign prostatic hypertrophy. Continue avodart. 10. Anemia of chronic disease. Continue to monitor. If patient's hemoglobin is less than 7.5, we will transfuse. We will continue to monitor patient closely. Further recommendations, management, and treatment as per clinical course. Problems: Subjective 24 Hr Interval Summary Free Text/Dictation No acute changes Patient denies of any chest pain or shortness of breath Tolerating oral intake Moderate assist with ambulation Exam/Review of Systems Vital Signs Vitals Vital Signs Date Time Temp Pulse Resp B/P Pulse Ox O2 Delivery O2 Flow Rate FiO2 05/13/16 08:00 98.5 67 18 121/56 96 Room Air Intake and Output 05/12/16 05/12/16 05/13/16 14:59 22:59 06:59 Intake Total 1250 ml Output Total 750 ml Balance 500 ml Exam General: The patient is well-developed, Not in acute distress. HEENT: Atraumatic, normocephalic. The pupils are equal and round . Neck: Supple with full range of motion. Chest: Normal expansion of the thorax during inspiration Lungs: Clear to auscultation bilaterally Heart: Normal S1-S2, Regular rhythm and rate. Abdomen: Soft , nontender, nondistended , bowel sounds are present. Extremities: Normal to inspection, no edema no cyanosis Neurologic: Normal mental status,The patient is awake, alert and oriented . Results Result Diagram: 05/13/16 0616 05/11/16 0638 Results 24 hrs Laboratory Tests Test 05/12/16 16:29 05/12/16 20:19 05/13/16 02:28 05/13/16 06:16 Bedside Glucose 169 227 H 174 Basophils # 0.0 Basophils % 0.5 Blood Morphology Comment Eosinophils # 0.1 Eosinophils % 1.6 Hematocrit 27.0 L Hemoglobin 8.9 L Lymphocytes # 2.3 Lymphocytes % 33.7 Mean Corpuscular Hemoglobin 30.7 Mean Corpuscular Hemoglobin Concent 32.9 Mean Corpuscular Volume 93.5 Mean Platelet Volume 8.4 Monocytes # 0.5 Monocytes % 7.7 Neutrophils # 3.9 Neutrophils % 56.5 Nucleated Red Blood Cells # 0.0 Nucleated Red Blood Cells % 0.0 Platelet Count 170 Red Blood Count 2.88 L Red Cell Distribution Width 14.6 H White Blood Count 6.9 Test 05/13/16 07:58 05/13/16 11:34 Bedside Glucose 226 H 253 H Medications Medications Current Medications Potassium Chloride (Micro-K) 8 meq DAILY PO Last administered on 05/13/16 08:56 ; Admin Dose 8 MEQ; Start 05/08/16 at 09:00 Rosuvastatin Calcium (Crestor) 40 mg QHS PO Last administered on 05/12/16 20:48 ; Admin Dose 40 MG; Start 05/07/16 at 21:00 Valsartan (Diovan) 160 mg BID PO Last administered on 05/13/16 08:58; Admin Dose 160 MG; Start 05/07/16 at 21:00 Diclofenac Sodium (Voltaren 1% Gel) 2 gm TID TP Last administered on 05/13/16 13:32; Admin Dose 2 GM; Start 05/07/16 at 21:00 Montelukast Sodium (Singulair) 10 mg HS PO Last administered on 05/12/16 20:49 ; Admin Dose 10 MG; Start 05/07/16 at 21:00 Nitroglycerin (Nitroglycerin (Sl Tab) 0.4 Mg) 1 tab Q5M PRN SL CHEST PAIN; Start 05/07/16 at 20:30 Nystatin (Nystatin Powder) 1 applic BID TOP Last administered on 05/13/16 09:00 ; Admin Dose 1 APPLIC; Start 05/07/16 at 21:00 Olopatadine HCl (Patanol 0.1% Oph) 1 drop BID BOTH EYES Last administered on 09:00; Admin Dose 1 DROP; Start 05/07/16 at 21:00 Pantoprazole (Protonix Tab) 40 mg DAILY@06 PO Last administered on 05/13/16 06: 52; Admin Dose 40 MG; Start 05/08/16 at 06:00 Diagnostic Test (Pha) (Accucheck) 1 ea 02 XX ; Start 05/08/16 at 02:00 Miscellaneous Information 1 ea NOTE XX ; Start 05/07/16 at 20:30 Glucose (Glutose) 15 gm Q15M PRN PO DECREASED GLUCOSE; Start 05/07/16 at 20:30 Glucose (Glutose) 22.5 gm Q15M PRN PO DECREASED GLUCOSE; Start 05/07/16 at 20: 30 Dextrose (D50w Syringe) 25 ml Q15M PRN IV DECREASED GLUCOSE; Start 05/07/16 at 20:30 Dextrose (D50w Syringe) 50 ml Q15M PRN IV DECREASED GLUCOSE; Start 05/07/16 at 20:30 Glucagon (Glucagen) 1 mg Q15M PRN IM DECREASED GLUCOSE; Start 05/07/16 at 20: 30 Glucose (Glutose) 15 gm Q15M PRN BUCCAL DECREASED GLUCOSE; Start 05/07/16 at 20:30 Linagliptin (Tradjenta) 5 mg DAILY PO Last administered on 05/13/16 08:55; Admin Dose 5 MG; Start 05/08/16 at 09:00 Docusate Sodium (Colace) 100 mg Q12H PRN PO CONSTIPATION; Start 05/07/16 at 20 :30 Dutasteride (Avodart) 0.5 mg DAILY PO Last administered on 05/13/16 09:00; Admin Dose 0.5 MG; Start 05/08/16 at 09:00 Ergocalciferol (Drisdol) 50,000 unit [place]@09 PO Last administered on 05/10/16 08: 46; Admin Dose 50,000 UNIT; Start 05/10/16 at 09:00 Furosemide (Lasix) 40 mg DAILY PO Last administered on 05/13/16 08:56; Admin Dose 40 MG; Start 05/08/16 at 09:00 Hydralazine HCl (Apresoline) 10 mg Q8 PO Last administered on 05/13/16 13:26; Admin Dose 10 MG; Start 05/07/16 at 22:00 Acetaminophen (Tylenol Liquid) 650 mg Q6H PRN PO PAIN AND OR ELEVATED TEMP; Start 05/07/16 at 21:00 Amlodipine Besylate (Norvasc) 5 mg DAILY PO Last administered on 05/13/16 13:28 ; Admin Dose 5 MG; Start 05/08/16 at 09:00 Carvedilol (Coreg) 25 mg BID PO Last administered on 05/12/16 20:48; Admin Dose 25 MG; Start 05/07/16 at 21:00 Clobetasol Propionate (Temovate 0.05% Oint) 1 applic BID TOP Last administered on 05/13/16 09:00; Admin Dose 1 APPLIC; Start 05/07/16 at 21:00 Tramadol HCl (Ultram) 50 mg Q6H PRN PO PAIN Last administered on 05/12/16 12:45 ; Admin Dose 50 MG; Start 05/07/16 at 21:00 Docusate Sodium (Colace) 100 mg BID PO Last administered on 05/13/16 08:56; Admin Dose 100 MG; Start 05/08/16 at 09:00 Senna (Senokot) 1 tab HS PO Last administered on 05/12/16 20:48; Admin Dose 1 TAB; Start 05/07/16 at 23:45 Bisacodyl (Dulcolax Supp) 10 mg DAILY PRN [place] CONSTIPATION; Start 05/07/16 at 23:45 Acetaminophen (Tylenol Tab) 650 mg Q4H PRN PO PAIN Last administered on 22:16; Admin Dose 650 MG; Start 05/07/16 at 23:45 Magnesium Hydroxide (Milk Of Mag) 30 ml BID PRN PO CONSTIPATION Last administered on 05/09/16at 20:08; Admin Dose 30 ML; Start 05/07/16 at 23:45 Lactulose (Enulose) 20 gm DAILY PRN PO CONSTIPATION Last administered on 12/30/ 16at 18:46; Admin Dose 20 GM; Start 05/07/16 at 23:45 Collagenase (Santyl) 1 applic QAM TOP Last administered on 05/13/16 13:32; Admin Dose 1 APPLIC; Start 05/08/16 at 11:00 Ascorbic Acid (Vitamin C) 500 mg DAILY PO Last administered on 05/13/16 08:55; Admin Dose 500 MG; Start 05/08/16 at 10:00 Multivitamins Therapeutic (Theragran) 1 tab DAILY PO Last administered on 08:55; Admin Dose 1 TAB; Start 05/08/16 at 10:00 Betamethasone/ Clotrimazole (Lotrisone Cr) 1 applic BID PRN TOP RASH Last administered on 05/11/16 20:15; Admin Dose 1 APPLIC; Start 05/08/16 at 10:30 Folic Acid (Folic Acid) 1 mg DAILY PO Last administered on 05/13/16 08:55; Admin Dose 1 MG; Start 05/08/16 at 10:00 Zinc Sulfate (Zinc Sulfate) 220 mg DAILY PO Last administered on 05/13/16 08:55 ; Admin Dose 220 MG; Start 05/08/16 at 10:30 Insulin Glargine (Lantus) 20 unit QAM SC Last administered on 05/13/16 08:54; Admin Dose 20 UNIT; Start 05/10/16 at 09:00 GLEN DOMINGO MD May 13, 2016 16:24
--- NOTE | 2016-05-13 18:23 | CONS ---
DATE OF ADMISSION: 05/07/2016 DATE OF CONSULTATION: 05/13/2016 TYPE OF CONSULTATION: Psychological. REFERRING PHYSICIAN: Mary Carmen Edwards MD CONSULTING PSYCHOLOGIST: Honorio Danielle MD, PhD REASON FOR CONSULTATION: This consultation was requested by Dr. Judd Edwards in order to evaluate the cognitive and emotional functioning of this patient, related to his present medical condition. HISTORY OF PRESENT ILLNESS: The patient is an 86-year-old male. He has multiple medical problems. The client was having a worsening level of cognition and mobility. A workup revealed a subdural he matoma. The patient was medically cleared [facility]disciplinary rehabilitation care. The patient is [id number] a nd does have difficulty with his overall ability to understand. He was interviewed in both Azeri and Bhutanese. The patient's volunteer, Dianna, was doing the Bhutanese translation. The patient is f rustrated about his present medical condition. The patient is impulsive and confused. The patient pulled out his PICC line the previous evening. The patient did not remember that he did this. The patient does have a sitter at the present time. The patient seems to get agitated and combative at nighttime. This may be a sundowning type of situation. Overall, the patient presently is motivated to get better and does want to go home, but is still confused and impulsive. FAMILY AND SOCIAL HISTORY: The patient lives with his and son. The patient does want to retur n home with them after discharge. MEDICATIONS: The patient is currently not on any psychotropic medications. SUBSTANCE USE: The patient reports that he does not smoke. The patient denies any use of alcohol o r other drugs. MENTAL STATUS EXAMINATION APPEARANCE: The patient was seen sitting on the side of his bed. The patient's sister was standing next to him to make sure that he would not get up on his own. The patient is of average height and slightly obese. The patient has valle hair. The patient is also right-handed. BEHAVIOR: Cooperative during the consultation. The patient did attempt to answer all questions pre sented to him by the interviewer. The patient had to have numerous questions repeated to him, is arnold [id number] and it made it difficult, both the language and his hearing problem for him to have qu estions. The patient was also confused and that also was involved in some of his inability to answe r. MOOD AND AFFECT: Mood appears to be slightly depressed. Affect does appear to be slightly anxious. PERCEPTION: Reports no hallucinations or delusions. The patient was alert to person but not exactl y to place, situation and time. MEMORY AND COGNITION: Appear to be impaired. He did have difficulty remembering recent and remote events. The patient was unable to name the hospital. The patient was unable to say what year it is . The patient initially said that he a 48 years old and then said he was 88 years old. The patient definitely appears to have a good deal of continued confusion. INTELLIGENCE: Appears to fall in the average range when he is functioning adequately. INSIGHT: Poor. JUDGMENT: Poor. THOUGHT CONTENT: Is concerned about his present medical condition. The patient does want to get be tter and return home. The patient does not understand what is going on at the present time and does want to return home as soon as possible. DISCUSSION: The patient may be able to benefit from some cognitive/behavioral psychotherapy while ronny rivera is on the unit. This psychotherapy would try to focus on his underlying level of frustration and depression, as well as his cognitive confusion. DIAGNOSTIC IMPRESSION: 1. 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 2. 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 Thank you very much, Dr. Judd Edwards, for referring this individual. Please do not hesitate to ca ll if you have additional questions. Dictated By: HONORIO DANIELLE PHD SAMMY/MARLA Conf#: [id number] DID#: [id number] CC: MARY CARMEN EDWARDS MD;*End*
[2016-05-13 20:25] VITALS: BP 193/81; RESP 18
[2016-05-13] MEDS: MONTELUKAST 10 MG TAB PO SCH (20:36)
[2016-05-13] MEDS: ROSUVASTATIN CALCIUM 40 MG TABLET PO SCH (20:40)
[2016-05-13] MEDS: SENNA TAB PO SCH (20:40)
[2016-05-13 21:00] VITALS: BP 175/85; PULSE 63
[2016-05-13 22:00] VITALS: BP 146/64
[2016-05-14] VITALS (7 sets, daily range): BP systolic 108–200; BP diastolic 56–84; PULSE 56–70; RESP 18–20
[2016-05-14] MEDS: ACCUCHECK AT 2AM (Patients on SS coverage) XX SCH (02:00)
[2016-05-14] MEDS: PANTOPRAZOLE (EC) 40 MG TAB PO SCH (06:15)
[2016-05-14] MEDS: Insulin NOVOLOG SS MODERATE Algorithm (SS with meals and bedtime) SC SCH ×4 (08:18→21:00)
[2016-05-14] MEDS: INSULIN ASPART [NOVOLOG] 3 ML PEN SC SCH ×3 (08:18→17:30)
[2016-05-14] MEDS: INSULIN GLARGINE [LANtus] 3 ML PEN SC SCH (08:19)
[2016-05-14] MEDS: ASCORBIC ACID 500 MG TAB PO SCH (08:20)
[2016-05-14] MEDS: LINAGLIPTIN 5 MG TABLET PO SCH (08:20)
[2016-05-14] MEDS: MULTIVITAMINS THERAPEUTIC TAB PO SCH (08:20)
[2016-05-14] MEDS: DUTASTERIDE 0.5 MG CAP PO SCH (08:20)
[2016-05-14] MEDS: DOCUSATE SODIUM 100 MG CAP PO SCH ×2 (08:21→21:04)
[2016-05-14] MEDS: AMLODIPINE 5 MG TAB PO SCH (08:21)
[2016-05-14] MEDS: VALSARTAN 160 MG TAB PO SCH ×2 (08:21→21:05)
[2016-05-14] MEDS: POTASSIUM CHLORIDE (SR) 8 MEQ CAP PO SCH (08:21)
[2016-05-14] MEDS: FOLIC ACID 1 MG TAB PO SCH (08:22)
[2016-05-14] MEDS: FUROSEMIDE 40 MG TAB PO SCH (08:22)
[2016-05-14] MEDS: ZINC SULFATE 220 MG CAP PO SCH (08:22)
[2016-05-14] MEDS: NYSTATIN 30 GM POWDER BTL TOP SCH ×2 (09:00→21:06)
[2016-05-14] MEDS: OLOPATADINE 0.1% 5 ML OPH BOTH EYES SCH ×2 (09:00→21:06)
[2016-05-14] MEDS: COLLAGENASE 30 GM TUBE TOP SCH (09:00)
[2016-05-14] MEDS: DICLOFENAC SODIUM 1% GEL 100 GM TUBE TP SCH ×3 (09:00→21:06)
--- NOTE | 2016-05-14 12:11 | CONS ---
Date/Time of Note Date/Time of Note DATE: 05/14/16 TIME: 12:11 Consult Date/Type/Reason Admit Date/Time May 07, 2016 at 19:15 Subjective Comfortable Objective min assist ambulation Pulm-CTA abd- soft Vital Signs Date Time Temp Pulse Resp B/P Pulse Ox O2 Delivery O2 Flow Rate FiO2 05/14/16 07:05 98.8 64 18 138/61 100 05/14/16 06:18 Room Air Intake and Output 05/13/16 05/13/16 05/14/16 15:00 23:00 07:00 Intake Total 480 ml 400 ml 300 ml Output Total 1000 ml 2450 ml Balance 480 ml -600 ml -2150 ml Results/Medications Result Diagram: 05/13/16 0616 05/11/16 0638 Results 24 hrs Laboratory Tests Test 05/13/16 16:58 05/13/16 19:59 05/14/16 02:51 05/14/16 07:42 Bedside Glucose 175 81 88 148 Medications Current Medications Potassium Chloride (Micro-K) 8 meq DAILY PO Last administered on 05/14/16 08:21 ; Admin Dose 8 MEQ; Start 05/08/16 at 09:00 Rosuvastatin Calcium (Crestor) 40 mg QHS PO Last administered on 05/13/16 20:40 ; Admin Dose 40 MG; Start 05/07/16 at 21:00 Valsartan (Diovan) 160 mg BID PO Last administered on 05/14/16 08:21; Admin Dose 160 MG; Start 05/07/16 at 21:00 Diclofenac Sodium (Voltaren 1% Gel) 2 gm TID TP Last administered on 05/13/16 21:46; Admin Dose 2 GM; Start 05/07/16 at 21:00 Montelukast Sodium (Singulair) 10 mg HS PO Last administered on 05/13/16 20:36 ; Admin Dose 10 MG; Start 05/07/16 at 21:00 Nitroglycerin (Nitroglycerin (Sl Tab) 0.4 Mg) 1 tab Q5M PRN SL CHEST PAIN; Start 05/07/16 at 20:30 Nystatin (Nystatin Powder) 1 applic BID TOP Last administered on 05/13/16 21:47 ; Admin Dose 1 APPLIC; Start 05/07/16 at 21:00 Olopatadine HCl (Patanol 0.1% Oph) 1 drop BID BOTH EYES Last administered on 20:42; Admin Dose 1 DROP; Start 05/07/16 at 21:00 Pantoprazole (Protonix Tab) 40 mg DAILY@06 PO Last administered on 05/14/16 06: 15; Admin Dose 40 MG; Start 05/08/16 at 06:00 Diagnostic Test (Pha) (Accucheck) 1 ea 02 XX ; Start 05/08/16 at 02:00 Miscellaneous Information 1 ea NOTE XX ; Start 05/07/16 at 20:30 Glucose (Glutose) 15 gm Q15M PRN PO DECREASED GLUCOSE; Start 05/07/16 at 20:30 Glucose (Glutose) 22.5 gm Q15M PRN PO DECREASED GLUCOSE; Start 05/07/16 at 20: 30 Dextrose (D50w Syringe) 25 ml Q15M PRN IV DECREASED GLUCOSE; Start 05/07/16 at 20:30 Dextrose (D50w Syringe) 50 ml Q15M PRN IV DECREASED GLUCOSE; Start 05/07/16 at 20:30 Glucagon (Glucagen) 1 mg Q15M PRN IM DECREASED GLUCOSE; Start 05/07/16 at 20: 30 Glucose (Glutose) 15 gm Q15M PRN BUCCAL DECREASED GLUCOSE; Start 05/07/16 at 20:30 Linagliptin (Tradjenta) 5 mg DAILY PO Last administered on 05/14/16 08:20; Admin Dose 5 MG; Start 05/08/16 at 09:00 Docusate Sodium (Colace) 100 mg Q12H PRN PO CONSTIPATION; Start 05/07/16 at 20 :30 Dutasteride (Avodart) 0.5 mg DAILY PO Last administered on 05/14/16 08:20; Admin Dose 0.5 MG; Start 05/08/16 at 09:00 Ergocalciferol (Drisdol) 50,000 unit [place]@09 PO Last administered on 05/10/16 08: 46; Admin Dose 50,000 UNIT; Start 05/10/16 at 09:00 Furosemide (Lasix) 40 mg DAILY PO Last administered on 05/14/16 08:22; Admin Dose 40 MG; Start 05/08/16 at 09:00 Hydralazine HCl (Apresoline) 10 mg Q8 PO Last administered on 05/14/16 06:18; Admin Dose 10 MG; Start 05/07/16 at 22:00 Acetaminophen (Tylenol Liquid) 650 mg Q6H PRN PO PAIN AND OR ELEVATED TEMP; Start 05/07/16 at 21:00 Amlodipine Besylate (Norvasc) 5 mg DAILY PO Last administered on 05/14/16 08:21 ; Admin Dose 5 MG; Start 05/08/16 at 09:00 Carvedilol (Coreg) 25 mg BID PO Last administered on 05/14/16 08:20; Admin Dose 25 MG; Start 05/07/16 at 21:00 Clobetasol Propionate (Temovate 0.05% Oint) 1 applic BID TOP Last administered on 05/13/16 21:46; Admin Dose 1 APPLIC; Start 05/07/16 at 21:00 Tramadol HCl (Ultram) 50 mg Q6H PRN PO PAIN Last administered on 05/12/16 12:45 ; Admin Dose 50 MG; Start 05/07/16 at 21:00 Docusate Sodium (Colace) 100 mg BID PO Last administered on 05/14/16 08:21; Admin Dose 100 MG; Start 05/08/16 at 09:00 Senna (Senokot) 1 tab HS PO Last administered on 05/13/16 20:40; Admin Dose 1 TAB; Start 05/07/16 at 23:45 Bisacodyl (Dulcolax Supp) 10 mg DAILY PRN [place] CONSTIPATION; Start 05/07/16 at 23:45 Acetaminophen (Tylenol Tab) 650 mg Q4H PRN PO PAIN Last administered on 22:16; Admin Dose 650 MG; Start 05/07/16 at 23:45 Magnesium Hydroxide (Milk Of Mag) 30 ml BID PRN PO CONSTIPATION Last administered on 05/09/16 20:08; Admin Dose 30 ML; Start 05/07/16 at 23:45 Lactulose (Enulose) 20 gm DAILY PRN PO CONSTIPATION Last administered on 18:46; Admin Dose 20 GM; Start 05/07/16 at 23:45 Collagenase (Santyl) 1 applic QAM TOP Last administered on 05/13/16 13:32; Admin Dose 1 APPLIC; Start 05/08/16 at 11:00 Ascorbic Acid (Vitamin C) 500 mg DAILY PO Last administered on 05/14/16 08:20; Admin Dose 500 MG; Start 05/08/16 at 10:00 Multivitamins Therapeutic (Theragran) 1 tab DAILY PO Last administered on 08:20; Admin Dose 1 TAB; Start 05/08/16 at 10:00 Betamethasone/ Clotrimazole (Lotrisone Cr) 1 applic BID PRN TOP RASH Last administered on 05/11/16 20:15; Admin Dose 1 APPLIC; Start 05/08/16 at 10:30 Folic Acid (Folic Acid) 1 mg DAILY PO Last administered on 05/14/16 08:22; Admin Dose 1 MG; Start 05/08/16 at 10:00 Zinc Sulfate (Zinc Sulfate) 220 mg DAILY PO Last administered on 05/14/16 08:22 ; Admin Dose 220 MG; Start 05/08/16 at 10:30 Insulin Glargine (Lantus) 20 unit QAM SC Last administered on 05/14/16 08:19; Admin Dose 20 UNIT; Start 05/10/16 at 09:00 Assessment/Plan Additional Assessment/Plan Rehab- SDH; Encephalopathy Continue rehab activities Integ- steady improvement in stage 3 decub with wound care HTN CAD DM Spinal Stenosis MARY CARMEN GARCIA MD May 14, 2016 12:11
[2016-05-14] MEDS: CLOBETASOL 0.05% 15 GM OINT TOP SCH ×2 (12:45→21:06)
--- NOTE | 2016-05-14 15:13 | PN ---
Date/Time of Note Date/Time of Note DATE: 05/14/16 TIME: 15:07 Assessment/Plan VTE Prophylaxis VTE Prophylaxis Intervention: other Lines/Catheters IV [facility] Type (from [facility] PICC Line Central line still needed: No Urinary Cath still in place: Yes Reason Cath still needed: urinary retention Assessment/Plan Chief Complaint/Hosp Course ASSESSMENT AND PLAN: 1. Status post subdural hematoma and midline shift status post left frontal duane hole and placement of subdural drain. Neurosurgery was consulted. The patient is stable. Continue physical therapy. 2. Encephalopathy, resolving. 3. Diabetes mellitus. Continue medical management with Tradjenta, Lantus, insulin sliding scale, NovoLog. 4. Chronic kidney insufficiency. Continue to monitor. 5. History of coronary artery disease status post coronary artery bypass graft. Continue Coreg and statin. Unfortunately, the patient does not qualify for any anticoagulation or antiplatelet secondary to subdural hematoma. 6. Gastroesophageal reflux disease. Continue PPI. 7. History of aortic valve replacement as above. The patient does not qualify for any anticoagulation at this time secondary to subdural hematoma. 8. Gout. Continue medical management. 9. Benign prostatic hypertrophy. Continue avodart. 10. Anemia of chronic disease. Continue to monitor. If patient's hemoglobin is less than 7.5, we will transfuse. We will continue to monitor patient closely. Further recommendations, management, and treatment as per clinical course. Problems: Subjective 24 Hr Interval Summary Free Text/Dictation Patient was not able to participate with physical therapy today secondary to dizziness Tolerating oral intake Max assist with ambulation Exam/Review of Systems Vital Signs Vitals Vital Signs Date Time Temp Pulse Resp B/P Pulse Ox O2 Delivery O2 Flow Rate FiO2 05/14/16 14:39 66 108/56 05/14/16 07:05 98.8 18 100 05/14/16 06:18 Room Air Intake and Output 05/13/16 05/13/16 05/14/16 15:00 23:00 07:00 Intake Total 480 ml 400 ml 300 ml Output Total 1000 ml 2450 ml Balance 480 ml -600 ml -2150 ml Exam General: The patient is well-developed, Not in acute distress. HEENT: Atraumatic, normocephalic. The pupils are equal and round . Neck: Supple with full range of motion. Chest: Normal expansion of the thorax during inspiration Lungs: Clear to auscultation bilaterally Heart: Normal S1-S2, Regular rhythm and rate. Abdomen: Soft , nontender, nondistended , bowel sounds are present. Extremities: Normal to inspection, no edema no cyanosis Neurologic: Normal mental status,The patient is awake, alert Results Result Diagram: 05/13/16 0616 05/11/16 0638 Results 24 hrs Laboratory Tests Test 05/13/16 16:58 05/13/16 19:59 05/14/16 02:51 05/14/16 07:42 Bedside Glucose 175 81 88 148 Test 05/14/16 12:19 Bedside Glucose 158 Medications Medications Current Medications Potassium Chloride (Micro-K) 8 meq DAILY PO Last administered on 05/14/16 08:21 ; Admin Dose 8 MEQ; Start 05/08/16 at 09:00 Rosuvastatin Calcium (Crestor) 40 mg QHS PO Last administered on 05/13/16 20:40 ; Admin Dose 40 MG; Start 05/07/16 at 21:00 Valsartan (Diovan) 160 mg BID PO Last administered on 05/14/16 08:21; Admin Dose 160 MG; Start 05/07/16 at 21:00 Diclofenac Sodium (Voltaren 1% Gel) 2 gm TID TP Last administered on 05/13/16 21:46; Admin Dose 2 GM; Start 05/07/16 at 21:00 Montelukast Sodium (Singulair) 10 mg HS PO Last administered on 05/13/16 20:36 ; Admin Dose 10 MG; Start 05/07/16 at 21:00 Nitroglycerin (Nitroglycerin (Sl Tab) 0.4 Mg) 1 tab Q5M PRN SL CHEST PAIN; Start 05/07/16 at 20:30 Nystatin (Nystatin Powder) 1 applic BID TOP Last administered on 05/14/16 09:00 ; Admin Dose 1 APPLIC; Start 05/07/16 at 21:00 Olopatadine HCl (Patanol 0.1% Oph) 1 drop BID BOTH EYES Last administered on 09:00; Admin Dose 1 DROP; Start 05/07/16 at 21:00 Pantoprazole (Protonix Tab) 40 mg DAILY@06 PO Last administered on 05/14/16 06: 15; Admin Dose 40 MG; Start 05/08/16 at 06:00 Diagnostic Test (Pha) (Accucheck) 1 ea 02 XX ; Start 05/08/16 at 02:00 Miscellaneous Information 1 ea NOTE XX ; Start 05/07/16 at 20:30 Glucose (Glutose) 15 gm Q15M PRN PO DECREASED GLUCOSE; Start 05/07/16 at 20:30 Glucose (Glutose) 22.5 gm Q15M PRN PO DECREASED GLUCOSE; Start 05/07/16 at 20: 30 Dextrose (D50w Syringe) 25 ml Q15M PRN IV DECREASED GLUCOSE; Start 05/07/16 at 20:30 Dextrose (D50w Syringe) 50 ml Q15M PRN IV DECREASED GLUCOSE; Start 05/07/16 at 20:30 Glucagon (Glucagen) 1 mg Q15M PRN IM DECREASED GLUCOSE; Start 05/07/16 at 20: 30 Glucose (Glutose) 15 gm Q15M PRN BUCCAL DECREASED GLUCOSE; Start 05/07/16 at 20:30 Linagliptin (Tradjenta) 5 mg DAILY PO Last administered on 05/14/16 08:20; Admin Dose 5 MG; Start 05/08/16 at 09:00 Docusate Sodium (Colace) 100 mg Q12H PRN PO CONSTIPATION; Start 05/07/16 at 20 :30 Dutasteride (Avodart) 0.5 mg DAILY PO Last administered on 05/14/16 08:20; Admin Dose 0.5 MG; Start 05/08/16 at 09:00 Ergocalciferol (Drisdol) 50,000 unit [place]@09 PO Last administered on 05/10/16 08: 46; Admin Dose 50,000 UNIT; Start 05/10/16 at 09:00 Furosemide (Lasix) 40 mg DAILY PO Last administered on 05/14/16 08:22; Admin Dose 40 MG; Start 05/08/16 at 09:00 Hydralazine HCl (Apresoline) 10 mg Q8 PO Last administered on 05/14/16 06:18; Admin Dose 10 MG; Start 05/07/16 at 22:00 Acetaminophen (Tylenol Liquid) 650 mg Q6H PRN PO PAIN AND OR ELEVATED TEMP; Start 05/07/16 at 21:00 Amlodipine Besylate (Norvasc) 5 mg DAILY PO Last administered on 05/14/16 08:21 ; Admin Dose 5 MG; Start 05/08/16 at 09:00 Carvedilol (Coreg) 25 mg BID PO Last administered on 05/14/16 08:20; Admin Dose 25 MG; Start 05/07/16 at 21:00 Clobetasol Propionate (Temovate 0.05% Oint) 1 applic BID TOP Last administered on 05/14/16 12:45; Admin Dose 1 APPLIC; Start 05/07/16 at 21:00 Tramadol HCl (Ultram) 50 mg Q6H PRN PO PAIN Last administered on 05/12/16 12:45 ; Admin Dose 50 MG; Start 05/07/16 at 21:00 Docusate Sodium (Colace) 100 mg BID PO Last administered on 05/14/16 08:21; Admin Dose 100 MG; Start 05/08/16 at 09:00 Senna (Senokot) 1 tab HS PO Last administered on 05/13/16 20:40; Admin Dose 1 TAB; Start 05/07/16 at 23:45 Bisacodyl (Dulcolax Supp) 10 mg DAILY PRN [place] CONSTIPATION; Start 05/07/16 at 23:45 Acetaminophen (Tylenol Tab) 650 mg Q4H PRN PO PAIN Last administered on 22:16; Admin Dose 650 MG; Start 05/07/16 at 23:45 Magnesium Hydroxide (Milk Of Mag) 30 ml BID PRN PO CONSTIPATION Last administered on 05/09/16at 20:08; Admin Dose 30 ML; Start 05/07/16 at 23:45 Lactulose (Enulose) 20 gm DAILY PRN PO CONSTIPATION Last administered on at 18:46; Admin Dose 20 GM; Start 05/07/16 at 23:45 Collagenase (Santyl) 1 applic QAM TOP Last administered on 05/14/16 09:00; Admin Dose 1 APPLIC; Start 05/08/16 at 11:00 Ascorbic Acid (Vitamin C) 500 mg DAILY PO Last administered on 05/14/16 08:20; Admin Dose 500 MG; Start 05/08/16 at 10:00 Multivitamins Therapeutic (Theragran) 1 tab DAILY PO Last administered on 08:20; Admin Dose 1 TAB; Start 05/08/16 at 10:00 Betamethasone/ Clotrimazole (Lotrisone Cr) 1 applic BID PRN TOP RASH Last administered on 05/11/16 20:15; Admin Dose 1 APPLIC; Start 05/08/16 at 10:30 Folic Acid (Folic Acid) 1 mg DAILY PO Last administered on 05/14/16 08:22; Admin Dose 1 MG; Start 05/08/16 at 10:00 Zinc Sulfate (Zinc Sulfate) 220 mg DAILY PO Last administered on 05/14/16 08:22 ; Admin Dose 220 MG; Start 05/08/16 at 10:30 Insulin Glargine (Lantus) 20 unit QAM SC Last administered on 05/14/16 08:19; Admin Dose 20 UNIT; Start 05/10/16 at 09:00 GLEN DOMINGO MD May 14, 2016 15:13
[2016-05-14] MEDS: MONTELUKAST 10 MG TAB PO SCH (21:04)
[2016-05-14] MEDS: ROSUVASTATIN CALCIUM 40 MG TABLET PO SCH (21:04)
[2016-05-14] MEDS: SENNA TAB PO SCH (21:04)
[2016-05-15] MEDS: ACCUCHECK AT 2AM (Patients on SS coverage) XX SCH (02:00)
[2016-05-15] MEDS: PANTOPRAZOLE (EC) 40 MG TAB PO SCH (06:28)
[2016-05-15 07:30] VITALS: BP 137/62; RESP 18
[2016-05-15] MEDS: Insulin NOVOLOG SS MODERATE Algorithm (SS with meals and bedtime) SC SCH ×4 (07:35→21:59)
[2016-05-15] MEDS: FUROSEMIDE 40 MG TAB PO SCH (08:23)
[2016-05-15] MEDS: POTASSIUM CHLORIDE (SR) 8 MEQ CAP PO SCH (08:23)
[2016-05-15] MEDS: ZINC SULFATE 220 MG CAP PO SCH (08:23)
[2016-05-15] MEDS: AMLODIPINE 5 MG TAB PO SCH ×2 (08:23→21:54)
[2016-05-15] MEDS: ASCORBIC ACID 500 MG TAB PO SCH (08:24)
[2016-05-15] MEDS: LINAGLIPTIN 5 MG TABLET PO SCH (08:24)
[2016-05-15] MEDS: DOCUSATE SODIUM 100 MG CAP PO SCH ×2 (08:24→21:55)
[2016-05-15] MEDS: DUTASTERIDE 0.5 MG CAP PO SCH (08:24)
[2016-05-15] MEDS: FOLIC ACID 1 MG TAB PO SCH (08:24)
[2016-05-15] MEDS: MULTIVITAMINS THERAPEUTIC TAB PO SCH (08:24)
[2016-05-15] MEDS: NYSTATIN 30 GM POWDER BTL TOP SCH ×2 (08:25→21:56)
[2016-05-15] MEDS: COLLAGENASE 30 GM TUBE TOP SCH (08:25)
[2016-05-15] MEDS: CLOBETASOL 0.05% 15 GM OINT TOP SCH ×2 (08:25→21:57)
[2016-05-15] MEDS: DICLOFENAC SODIUM 1% GEL 100 GM TUBE TP SCH ×3 (08:25→21:57)
[2016-05-15] MEDS: OLOPATADINE 0.1% 5 ML OPH BOTH EYES SCH ×2 (08:26→21:57)
[2016-05-15] MEDS: VALSARTAN 160 MG TAB PO SCH (08:27)
[2016-05-15] MEDS: INSULIN GLARGINE [LANtus] 3 ML PEN SC SCH (08:31)
[2016-05-15] MEDS: INSULIN ASPART [NOVOLOG] 3 ML PEN SC SCH ×3 (08:31→17:40)
--- NOTE | 2016-05-15 12:45 | CONS ---
Date/Time of Note Date/Time of Note DATE: 05/15/16 TIME: 12:43 Consult Date/Type/Reason Admit Date/Time May 07, 2016 at 19:15 Subjective RN reports patient orthostatic this morning. Patient refused blood draw, but reports will consider when family arrives Objective min assist 80 feet Vital Signs Date Time Temp Pulse Resp B/P Pulse Ox O2 Delivery O2 Flow Rate FiO2 05/15/16 07:30 98.5 62 18 137/62 98 05/14/16 06:18 Room Air Intake and Output 05/14/16 05/14/16 05/15/16 15:00 23:00 07:00 Intake Total 960 ml Balance 960 ml Results/Medications Result Diagram: 05/13/16 0616 05/11/16 0638 Results 24 hrs Laboratory Tests Test 05/14/16 17:05 05/14/16 21:02 05/15/16 07:51 05/15/16 12:34 Bedside Glucose 319 H 165 139 265 H Medications Current Medications Potassium Chloride (Micro-K) 8 meq DAILY PO Last administered on 05/15/16 08:23 ; Admin Dose 8 MEQ; Start 05/08/16 at 09:00 Rosuvastatin Calcium (Crestor) 40 mg QHS PO Last administered on 05/14/16 21:04 ; Admin Dose 40 MG; Start 05/07/16 at 21:00 Valsartan (Diovan) 160 mg BID PO Last administered on 05/15/16 08:27; Admin Dose 160 MG; Start 05/07/16 at 21:00 Diclofenac Sodium (Voltaren 1% Gel) 2 gm TID TP Last administered on 05/15/16 08:25; Admin Dose 2 GM; Start 05/07/16 at 21:00 Montelukast Sodium (Singulair) 10 mg HS PO Last administered on 05/14/16 21:04 ; Admin Dose 10 MG; Start 05/07/16 at 21:00 Nitroglycerin (Nitroglycerin (Sl Tab) 0.4 Mg) 1 tab Q5M PRN SL CHEST PAIN; Start 05/07/16 at 20:30 Nystatin (Nystatin Powder) 1 applic BID TOP Last administered on 05/15/16 08:25 ; Admin Dose 1 APPLIC; Start 05/07/16 at 21:00 Olopatadine HCl (Patanol 0.1% Oph) 1 drop BID BOTH EYES Last administered on 08:26; Admin Dose 1 DROP; Start 05/07/16 at 21:00 Pantoprazole (Protonix Tab) 40 mg DAILY@06 PO Last administered on 05/15/16 06: 28; Admin Dose 40 MG; Start 05/08/16 at 06:00 Diagnostic Test (Pha) (Accucheck) 1 ea 02 XX ; Start 05/08/16 at 02:00 Miscellaneous Information 1 ea NOTE XX ; Start 05/07/16 at 20:30 Glucose (Glutose) 15 gm Q15M PRN PO DECREASED GLUCOSE; Start 05/07/16 at 20:30 Glucose (Glutose) 22.5 gm Q15M PRN PO DECREASED GLUCOSE; Start 05/07/16 at 20: 30 Dextrose (D50w Syringe) 25 ml Q15M PRN IV DECREASED GLUCOSE; Start 05/07/16 at 20:30 Dextrose (D50w Syringe) 50 ml Q15M PRN IV DECREASED GLUCOSE; Start 05/07/16 at 20:30 Glucagon (Glucagen) 1 mg Q15M PRN IM DECREASED GLUCOSE; Start 05/07/16 at 20: 30 Glucose (Glutose) 15 gm Q15M PRN BUCCAL DECREASED GLUCOSE; Start 05/07/16 at 20:30 Linagliptin (Tradjenta) 5 mg DAILY PO Last administered on 05/15/16 08:24; Admin Dose 5 MG; Start 05/08/16 at 09:00 Docusate Sodium (Colace) 100 mg Q12H PRN PO CONSTIPATION; Start 05/07/16 at 20 :30 Dutasteride (Avodart) 0.5 mg DAILY PO Last administered on 05/15/16 08:24; Admin Dose 0.5 MG; Start 05/08/16 at 09:00 Ergocalciferol (Drisdol) 50,000 unit [place]@09 PO Last administered on 05/10/16 08: 46; Admin Dose 50,000 UNIT; Start 05/10/16 at 09:00 Furosemide (Lasix) 40 mg DAILY PO Last administered on 05/15/16 08:23; Admin Dose 40 MG; Start 05/08/16 at 09:00 Hydralazine HCl (Apresoline) 10 mg Q8 PO Last administered on 05/15/16 06:29; Admin Dose 10 MG; Start 05/07/16 at 22:00 Acetaminophen (Tylenol Liquid) 650 mg Q6H PRN PO PAIN AND OR ELEVATED TEMP; Start 05/07/16 at 21:00 Amlodipine Besylate (Norvasc) 5 mg DAILY PO Last administered on 05/15/16 08:23 ; Admin Dose 5 MG; Start 05/08/16 at 09:00 Carvedilol (Coreg) 25 mg BID PO Last administered on 05/15/16 08:26; Admin Dose 25 MG; Start 05/07/16 at 21:00 Clobetasol Propionate (Temovate 0.05% Oint) 1 applic BID TOP Last administered on 05/15/16 08:25; Admin Dose 1 APPLIC; Start 05/07/16 at 21:00 Tramadol HCl (Ultram) 50 mg Q6H PRN PO PAIN Last administered on 05/12/16 12:45 ; Admin Dose 50 MG; Start 05/07/16 at 21:00 Docusate Sodium (Colace) 100 mg BID PO Last administered on 05/15/16 08:24; Admin Dose 100 MG; Start 05/08/16 at 09:00 Senna (Senokot) 1 tab HS PO Last administered on 05/14/16 21:04; Admin Dose 1 TAB; Start 05/07/16 at 23:45 Bisacodyl (Dulcolax Supp) 10 mg DAILY PRN [place] CONSTIPATION; Start 05/07/16 at 23:45 Acetaminophen (Tylenol Tab) 650 mg Q4H PRN PO PAIN Last administered on 22:16; Admin Dose 650 MG; Start 05/07/16 at 23:45 Magnesium Hydroxide (Milk Of Mag) 30 ml BID PRN PO CONSTIPATION Last administered on 05/09/16at 20:08; Admin Dose 30 ML; Start 05/07/16 at 23:45 Lactulose (Enulose) 20 gm DAILY PRN PO CONSTIPATION Last administered on at 18:46; Admin Dose 20 GM; Start 05/07/16 at 23:45 Collagenase (Santyl) 1 applic QAM TOP Last administered on 05/15/16 08:25; Admin Dose 1 APPLIC; Start 05/08/16 at 11:00 Ascorbic Acid (Vitamin C) 500 mg DAILY PO Last administered on 05/15/16 08:24; Admin Dose 500 MG; Start 05/08/16 at 10:00 Multivitamins Therapeutic (Theragran) 1 tab DAILY PO Last administered on 08:24; Admin Dose 1 TAB; Start 05/08/16 at 10:00 Betamethasone/ Clotrimazole (Lotrisone Cr) 1 applic BID PRN TOP RASH Last administered on 05/11/16 20:15; Admin Dose 1 APPLIC; Start 05/08/16 at 10:30 Folic Acid (Folic Acid) 1 mg DAILY PO Last administered on 05/15/16 08:24; Admin Dose 1 MG; Start 05/08/16 at 10:00 Zinc Sulfate (Zinc Sulfate) 220 mg DAILY PO Last administered on 05/15/16 08:23 ; Admin Dose 220 MG; Start 05/08/16 at 10:30 Insulin Glargine (Lantus) 20 unit QAM SC Last administered on 05/15/16 08:31; Admin Dose 20 UNIT; Start 05/10/16 at 09:00 Assessment/Plan Additional Assessment/Plan Rehab- SDH; Encephalopathy Activities as tolerated BP -monitor for orthostatic. Abd binder for OOb. Obtain labs Integ- steady improvement in stage 3 decub with wound care HTN CAD DM Spinal Stenosis MARY CARMEN GARCIA MD May 15, 2016 12:44
[2016-05-15 14:33] LABS: BASOPHILS % 0.5 % (0.0-2.0); EOSINOPHILS % 0.5 % (0.0-7.0); HEMATOCRIT 25.8 % (42.0-52.0); HEMOGLOBIN 8.6 g/dl (14.0-18.0); LYMPHOCYTES # 2.2 10^3/ul (0.8-2.9); LYMPHOCYTES % 25.7 % (15.0-51.0); MEAN CORPUSCULAR HEMOGLOBIN 31.2 pg (29.0-33.0); MEAN CORPUSCULAR HGB CONC 33.2 g/dl (32.0-37.0); MEAN CORPUSCULAR VOLUME 93.7 fl (82.0-101.0); MEAN PLATELET VOLUME 8.6 fl (7.4-10.4); MONOCYTE # 0.5 10^3/ul (0.3-0.9); MONOCYTES % 5.9 % (0.0-11.0); NEUTROPHIL # 5.7 10^3/ul (1.6-7.5); NEUTROPHILS % 67.4 % (39.0-77.0); PLATELET COUNT 170 10^3/UL (140-440); RED BLOOD COUNT 2.75 10^6/ul (4.70-6.10); RED CELL DISTRIBUTION WIDTH 14.8 % (11.5-14.5); UNCORRECTED WBC 8.5 10^3/ul (4.8-10.8); WHITE BLOOD COUNT 8.5 10^3/ul (4.8-10.8)
[2016-05-15 14:40] LABS: CONDITION 1; LH ANALYZER COMMENTS 1
[2016-05-15 14:45] LABS: POTASSIUM 4.7 mmol/L (3.5-5.1)
[2016-05-15 14:48] LABS: CREATININE 2.21 mg/dl (0.61-1.24)
--- NOTE | 2016-05-15 15:36 | RADRPT ---
PROCEDURE: CT Brain without contrast. CLINICAL INDICATION: History of left subdural hematoma. Altered mental status. TECHNIQUE: A CT of the brain without contrast was performed utilizing axial sections from the skul l base through the vertex. The patient was scanned without intravenous contrast enhancement. [place] l and coronal reformatted images were obtained using the data from the axial images. Total exam DLP is 720.23 mGy-cm. CTDIvol is 43.38 mGy. COMPARISON: May 03, 2016. FINDINGS: Previously noted left frontal skin melissa are no longer present. There is a left hemisphere subdur al hemorrhage again noted which appears mostly chronic with the chronic component larger than seen p reviously. A thin peripheral layer of acute hemorrhage in the left subdural space is unchanged. Th is measures up to 1.6 cm; prior was 0.8 cm. There is 4 mm of rightward midline shift which is unchan ged. There is mild to moderate generalized cerebral volume loss. There is moderate periventricular hypoattenuation suggesting chronic microvascular ischemic changes. There are moderate to extensive vascular calcifications within the intracranial carotid arteries. There is no loss of valle-white differentiation to suggest acute territorial infarction. The patient is status post left lens surgery. The paranasal sinuses are well aerated. No destructive osseous lesion is identified. IMPRESSION: 1. Atrophy. 2. Microangiopathic ischemic change. 3. Atherosclerosis. 4. Left frontal skin melissa removed. 5. Predominately chronic left hemisphere subdural hemorrhage, larger than seen previously. 6. Unchanged acute hemorrhage in the left subdural space peripherally. 7. Unchanged right word midline shift measuring 0.4 cm. 8. No other new abnormality. RPTAT: QQ .Gibran Silva MD, MD Date Time Electronically viewed and signed by .Gibran Silva MD, on 05/15/2016 15:36 .R/
[2016-05-15 19:57] VITALS: BP 160/71; RESP 18
[2016-05-15] MEDS: SENNA TAB PO SCH (21:55)
[2016-05-15] MEDS: MONTELUKAST 10 MG TAB PO SCH (21:55)
[2016-05-15] MEDS: VALSARTAN 80 MG TAB PO SCH (21:55)
[2016-05-15] MEDS: ROSUVASTATIN CALCIUM 40 MG TABLET PO SCH (21:56)
[2016-05-15] MEDS: BETAMETHASONE/CLOTRIMAZOLE 15 GM CR TOP PRN (21:57)
[2016-05-16] VITALS (10 sets, daily range): BP systolic 98–189; BP diastolic 55–79; PULSE 62–90; RESP 18–20
[2016-05-16] MEDS: ACCUCHECK AT 2AM (Patients on SS coverage) XX SCH (02:00)
[2016-05-16] MEDS: PANTOPRAZOLE (EC) 40 MG TAB PO SCH (05:56)
[2016-05-16] MEDS: POTASSIUM CHLORIDE (SR) 8 MEQ CAP PO SCH (08:05)
[2016-05-16] MEDS: ASCORBIC ACID 500 MG TAB PO SCH (08:05)
[2016-05-16] MEDS: DUTASTERIDE 0.5 MG CAP PO SCH (08:05)
[2016-05-16] MEDS: ZINC SULFATE 220 MG CAP PO SCH (08:05)
[2016-05-16] MEDS: LINAGLIPTIN 5 MG TABLET PO SCH (08:05)
[2016-05-16] MEDS: DOCUSATE SODIUM 100 MG CAP PO SCH ×2 (08:05→20:21)
[2016-05-16] MEDS: MULTIVITAMINS THERAPEUTIC TAB PO SCH (08:05)
[2016-05-16] MEDS: FOLIC ACID 1 MG TAB PO SCH (08:06)
[2016-05-16] MEDS: VALSARTAN 80 MG TAB PO SCH ×2 (08:06→20:21)
[2016-05-16] MEDS: AMLODIPINE 5 MG TAB PO SCH (08:07)
[2016-05-16] MEDS: FUROSEMIDE 40 MG TAB PO SCH (08:07)
[2016-05-16] MEDS: INSULIN ASPART [NOVOLOG] 3 ML PEN SC SCH ×6 (08:09→20:29)
[2016-05-16] MEDS: INSULIN GLARGINE [LANtus] 3 ML PEN SC SCH (08:10)
[2016-05-16] MEDS: Insulin NOVOLOG SS MODERATE Algorithm (SS with meals and bedtime) SC SCH (08:10)
[2016-05-16] MEDS: CLOBETASOL 0.05% 15 GM OINT TOP SCH ×2 (08:12→20:31)
[2016-05-16] MEDS: COLLAGENASE 30 GM TUBE TOP SCH (08:12)
[2016-05-16] MEDS: DICLOFENAC SODIUM 1% GEL 100 GM TUBE TP SCH ×3 (08:12→20:31)
[2016-05-16] MEDS: NYSTATIN 30 GM POWDER BTL TOP SCH ×2 (08:12→20:31)
[2016-05-16] MEDS: OLOPATADINE 0.1% 5 ML OPH BOTH EYES SCH ×2 (08:13→20:31)
--- NOTE | 2016-05-16 10:12 | PN ---
Date/Time of Note Date/Time of Note DATE: 05/16/16 TIME: 10:11 Assessment/Plan VTE Prophylaxis VTE Prophylaxis Intervention: SCD's Lines/Catheters IV Catheter Type (from Nrs): PICC Line Central line still needed: No Urinary Cath still in place: Yes Reason Cath still needed: other (indicate) Assessment/Plan Chief Complaint/Hosp Course ASSESSMENT AND PLAN: 1. Status post subdural hematoma and midline shift status post left frontal duane hole and placement of subdural drain. Neurosurgery was consulted. The patient is stable. Continue physical therapy. 2. Encephalopathy, resolving. 3. Diabetes mellitus. Continue medical management with Tradjenta, Lantus, insulin sliding scale, NovoLog. 4. Chronic kidney insufficiency. Continue to monitor. 5. History of coronary artery disease status post coronary artery bypass graft. Continue Coreg and statin. Unfortunately, the patient does not qualify for any anticoagulation or antiplatelet secondary to subdural hematoma. 6. Gastroesophageal reflux disease. Continue PPI. 7. History of aortic valve replacement as above. The patient does not qualify for any anticoagulation at this time secondary to subdural hematoma. 8. Gout. Continue medical management. 9. Benign prostatic hypertrophy. Continue avodart. 10. Anemia of chronic disease. Continue to monitor. If patient's hemoglobin is less than 7.5, we will transfuse. We will continue to monitor patient closely. Further recommendations, management, and treatment as per clinical course. Problems: Subjective 24 Hr Interval Summary Free Text/Dictation Patient denies of any chest pain or shortness of breath Tolerating oral intake Improvement in ambulation Exam/Review of Systems Vital Signs Vitals Vital Signs Date Time Temp Pulse Resp B/P Pulse Ox O2 Delivery O2 Flow Rate FiO2 05/16/16 08:19 98.0 72 20 159/62 96 Room Air Intake and Output 05/15/16 05/15/16 05/16/16 15:00 23:00 07:00 Intake Total 200 ml 460 ml 480 ml Output Total 1200 ml 400 ml 1300 ml Balance -1000 ml 60 ml -820 ml Exam General: The patient is well-developed, Not in acute distress. HEENT: Atraumatic, normocephalic. The pupils are equal and round . Neck: Supple with full range of motion. Chest: Normal expansion of the thorax during inspiration Lungs: Clear to auscultation bilaterally Heart: Normal S1-S2, Regular rhythm and rate. Abdomen: Soft , nontender, nondistended , bowel sounds are present. Extremities: Normal to inspection, no edema no cyanosis Neurologic: Normal mental status,The patient is awake, alert and oriented . Results Result Diagram: 05/15/16 1345 05/15/16 1345 Results 24 hrs Laboratory Tests Test 05/15/16 12:34 05/15/16 13:45 05/15/16 17:20 05/15/16 20:42 Bedside Glucose 265 H 162 291 H Anion Gap 17 H Basophils # 0.0 Basophils % 0.5 Blood Morphology Comment Blood Urea Nitrogen 48 H Calcium Level 8.0 L Carbon Dioxide Level 25 Chloride Level 103 Creatinine 2.21 H Eosinophils # 0.0 Eosinophils % 0.5 Glucose Level 187 Hematocrit 25.8 L Hemoglobin 8.6 L Lymphocytes # 2.2 Lymphocytes % 25.7 Mean Corpuscular Hemoglobin 31.2 Mean Corpuscular Hemoglobin Concent 33.2 Mean Corpuscular Volume 93.7 Mean Platelet Volume 8.6 Monocytes # 0.5 Monocytes % 5.9 Neutrophils # 5.7 Neutrophils % 67.4 Nucleated Red Blood Cells # 0.0 Nucleated Red Blood Cells % 0.0 Platelet Count 170 Potassium Level 4.7 Red Blood Count 2.75 L Red Cell Distribution Width 14.8 H Sodium Level 140 White Blood Count 8.5 # Test 05/16/16 02:19 05/16/16 07:29 Bedside Glucose 191 183 Medications Medications Current Medications Potassium Chloride (Micro-K) 8 meq DAILY PO Last administered on 05/16/16 08:05 ; Admin Dose 8 MEQ; Start 05/08/16 at 09:00 Rosuvastatin Calcium (Crestor) 40 mg QHS PO Last administered on 05/15/16 21:56 ; Admin Dose 40 MG; Start 05/07/16 at 21:00 Diclofenac Sodium (Voltaren 1% Gel) 2 gm TID TP Last administered on 05/16/16 08:12; Admin Dose 2 GM; Start 05/07/16 at 21:00 Montelukast Sodium (Singulair) 10 mg HS PO Last administered on 05/15/16 21:55 ; Admin Dose 10 MG; Start 05/07/16 at 21:00 Nitroglycerin (Nitroglycerin (Sl Tab) 0.4 Mg) 1 tab Q5M PRN SL CHEST PAIN; Start 12/29/16 at 20:30 Nystatin (Nystatin Powder) 1 applic BID TOP Last administered on 05/16/16 08:12 ; Admin Dose 1 APPLIC; Start 05/07/16 at 21:00 Olopatadine HCl (Patanol 0.1% Oph) 1 drop BID BOTH EYES Last administered on 08:13; Admin Dose 1 DROP; Start 05/07/16 at 21:00 Pantoprazole (Protonix Tab) 40 mg DAILY@06 PO Last administered on 05/16/16 05: 56; Admin Dose 40 MG; Start 05/08/16 at 06:00 Diagnostic Test (Pha) (Accucheck) 1 ea 02 XX ; Start 05/08/16 at 02:00 Miscellaneous Information 1 ea NOTE XX ; Start 05/07/16 at 20:30 Glucose (Glutose) 15 gm Q15M PRN PO DECREASED GLUCOSE; Start 05/07/16 at 20:30 Glucose (Glutose) 22.5 gm Q15M PRN PO DECREASED GLUCOSE; Start 05/07/16 at 20: 30 Dextrose (D50w Syringe) 25 ml Q15M PRN IV DECREASED GLUCOSE; Start 05/07/16 at 20:30 Dextrose (D50w Syringe) 50 ml Q15M PRN IV DECREASED GLUCOSE; Start 05/07/16 at 20:30 Glucagon (Glucagen) 1 mg Q15M PRN IM DECREASED GLUCOSE; Start 05/07/16 at 20: 30 Glucose (Glutose) 15 gm Q15M PRN BUCCAL DECREASED GLUCOSE; Start 05/07/16 at 20:30 Linagliptin (Tradjenta) 5 mg DAILY PO Last administered on 05/16/16 08:05; Admin Dose 5 MG; Start 05/08/16 at 09:00 Docusate Sodium (Colace) 100 mg Q12H PRN PO CONSTIPATION; Start 05/07/16 at 20 :30 Dutasteride (Avodart) 0.5 mg DAILY PO Last administered on 05/16/16 08:05; Admin Dose 0.5 MG; Start 05/08/16 at 09:00 Ergocalciferol (Drisdol) 50,000 unit [place]@09 PO Last administered on 05/10/16 08: 46; Admin Dose 50,000 UNIT; Start 05/10/16 at 09:00 Furosemide (Lasix) 40 mg DAILY PO Last administered on 05/16/16 08:07; Admin Dose 40 MG; Start 05/08/16 at 09:00 Acetaminophen (Tylenol Liquid) 650 mg Q6H PRN PO PAIN AND OR ELEVATED TEMP; Start 05/07/16 at 21:00 Carvedilol (Coreg) 25 mg BID PO Last administered on 05/16/16 08:06; Admin Dose 25 MG; Start 05/07/16 at 21:00 Clobetasol Propionate (Temovate 0.05% Oint) 1 applic BID TOP Last administered on 05/16/16 08:12; Admin Dose 1 APPLIC; Start 05/07/16 at 21:00 Tramadol HCl (Ultram) 50 mg Q6H PRN PO PAIN Last administered on 05/12/16 12:45 ; Admin Dose 50 MG; Start 05/07/16 at 21:00 Docusate Sodium (Colace) 100 mg BID PO Last administered on 05/16/16 08:05; Admin Dose 100 MG; Start 05/08/16 at 09:00 Senna (Senokot) 1 tab HS PO Last administered on 05/15/16 21:55; Admin Dose 1 TAB; Start 05/07/16 at 23:45 Bisacodyl (Dulcolax Supp) 10 mg DAILY PRN [place] CONSTIPATION; Start 05/07/16 at 23:45 Acetaminophen (Tylenol Tab) 650 mg Q4H PRN PO PAIN Last administered on 22:16; Admin Dose 650 MG; Start 05/07/16 at 23:45 Magnesium Hydroxide (Milk Of Mag) 30 ml BID PRN PO CONSTIPATION Last administered on 05/09/16at 20:08; Admin Dose 30 ML; Start 05/07/16 at 23:45 Lactulose (Enulose) 20 gm DAILY PRN PO CONSTIPATION Last administered on at 18:46; Admin Dose 20 GM; Start 05/07/16 at 23:45 Collagenase (Santyl) 1 applic QAM TOP Last administered on 05/16/16 08:12; Admin Dose 1 APPLIC; Start 05/08/16 at 11:00 Ascorbic Acid (Vitamin C) 500 mg DAILY PO Last administered on 05/16/16 08:05; Admin Dose 500 MG; Start 05/08/16 at 10:00 Multivitamins Therapeutic (Theragran) 1 tab DAILY PO Last administered on 08:05; Admin Dose 1 TAB; Start 05/08/16 at 10:00 Betamethasone/ Clotrimazole (Lotrisone Cr) 1 applic BID PRN TOP RASH Last administered on 05/15/16 21:57; Admin Dose 1 APPLIC; Start 05/08/16 at 10:30 Folic Acid (Folic Acid) 1 mg DAILY PO Last administered on 05/16/16 08:06; Admin Dose 1 MG; Start 05/08/16 at 10:00 Zinc Sulfate (Zinc Sulfate) 220 mg DAILY PO Last administered on 05/16/16 08:05 ; Admin Dose 220 MG; Start 05/08/16 at 10:30 Insulin Glargine (Lantus) 20 unit QAM SC Last administered on 05/16/16 08:10; Admin Dose 20 UNIT; Start 05/10/16 at 09:00 Amlodipine Besylate (Norvasc) 5 mg BID PO Last administered on 05/16/16 08:07; Admin Dose 5 MG; Start 05/15/16 at 21:00 Valsartan (Diovan) 80 mg BID PO Last administered on 05/16/16 08:06; Admin Dose 80 MG; Start 05/15/16 at 21:00 GLEN DOMINGO MD May 16, 2016 10:12
[2016-05-16] MEDS: SOD CHLORIDE 0.45% 1,000 ML IV SCH (10:30)
--- NOTE | 2016-05-16 11:36 | PN ---
Date/Time of Note Date/Time of Note DATE: 05/16/16 TIME: 11:25 Assessment/Plan VTE Prophylaxis VTE Prophylaxis Intervention: SCD's Lines/Catheters IV Catheter Type (from Nrsg): PICC Line Urinary Cath still in place: Yes Assessment/Plan Assessment/Plan 1. Left SDH status post left frontal duane hole and placement of subdural drain, with impaired mobility/gait/ADLs/cognition. Continue PT/OT/ST. Follow up with neurosurgery regarding any further recommendations from follow up head CT. 2. Encephalopathy. Continue ST. 3. Hypertension. With noted orthostatic hypotension, internal medicine adjusting medications. 4. Stage 3 sacral decub. Continue wound care 5. CAD. Continue medical management. 6. DM. Continue medical management per endocrinology, adjusting regimen. 7. Spinal Stenosis. Continue pain control. 8. CKD. Worsening renal function on labs yesterday, to start IV fluids per internal medicine. Continue to monitor renal function. 9. Anemia. Stable hemoglobin/hematocrit on yesterday labs, monitor. 10. BPH. Continue medical management. Continue ralph catheter care. Subjective 24 Hr Interval Summary Free Text/Dictation Rehab progress note Subjective: Denies acute complaints. Nursing reports no acute overnight events. ROS: Denies headache, no dizziness, denies new focal weakness, no shortness of breath, no chest pain, no abdominal pain. Exam/Review of Systems Vital Signs Vitals Vital Signs Date Time Temp Pulse Resp B/P Pulse Ox O2 Delivery O2 Flow Rate FiO2 05/16/16 08:19 98.0 72 20 159/62 96 Room Air Intake and Output 05/15/16 05/15/16 05/16/16 15:00 23:00 07:00 Intake Total 200 ml 460 ml 480 ml Output Total 1200 ml 400 ml 1300 ml Balance -1000 ml 60 ml -820 ml Exam General: Awake, alert, in no acute distress CV: Regular rate, s1s2 Lungs: Clear to auscultation anteriorly, no wheezing Abdomen soft, nontender, bowel sounds present Extremities without cyanosis, no edema Neuro: Follows simple commands. Does not cooperate with full individualized muscle strength testing. Results Result Diagram: 05/15/16 1345 05/15/16 1345 Results 24 hrs Laboratory Tests Test 05/15/16 12:34 05/15/16 13:45 05/15/16 17:20 05/15/16 20:42 Bedside Glucose 265 H 162 291 H Anion Gap 17 H Basophils # 0.0 Basophils % 0.5 Blood Morphology Comment Blood Urea Nitrogen 48 H Calcium Level 8.0 L Carbon Dioxide Level 25 Chloride Level 103 Creatinine 2.21 H Eosinophils # 0.0 Eosinophils % 0.5 Glucose Level 187 Hematocrit 25.8 L Hemoglobin 8.6 L Lymphocytes # 2.2 Lymphocytes % 25.7 Mean Corpuscular Hemoglobin 31.2 Mean Corpuscular Hemoglobin Concent 33.2 Mean Corpuscular Volume 93.7 Mean Platelet Volume 8.6 Monocytes # 0.5 Monocytes % 5.9 Neutrophils # 5.7 Neutrophils % 67.4 Nucleated Red Blood Cells # 0.0 Nucleated Red Blood Cells % 0.0 Platelet Count 170 Potassium Level 4.7 Red Blood Count 2.75 L Red Cell Distribution Width 14.8 H Sodium Level 140 White Blood Count 8.5 # Test 05/16/16 02:19 05/16/16 07:29 Bedside Glucose 191 183 Medications Medications Current Medications Rosuvastatin Calcium (Crestor) 40 mg QHS PO Last administered on 05/15/16 21:56 ; Admin Dose 40 MG; Start 05/07/16 at 21:00 Diclofenac Sodium (Voltaren 1% Gel) 2 gm TID TP Last administered on 05/16/16 08:12; Admin Dose 2 GM; Start 05/07/16 at 21:00 Montelukast Sodium (Singulair) 10 mg HS PO Last administered on 05/15/16 21:55 ; Admin Dose 10 MG; Start 05/07/16 at 21:00 Nitroglycerin (Nitroglycerin (Sl Tab) 0.4 Mg) 1 tab Q5M PRN SL CHEST PAIN; Start 05/07/16 at 20:30 Nystatin (Nystatin Powder) 1 applic BID TOP Last administered on 05/16/16 08:12 ; Admin Dose 1 APPLIC; Start 05/07/16 at 21:00 Olopatadine HCl (Patanol 0.1% Oph) 1 drop BID BOTH EYES Last administered on 08:13; Admin Dose 1 DROP; Start 05/07/16 at 21:00 Pantoprazole (Protonix Tab) 40 mg DAILY@06 PO Last administered on 05/16/16 05: 56; Admin Dose 40 MG; Start 05/08/16 at 06:00 Diagnostic Test (Pha) (Accucheck) 1 ea 02 XX ; Start 05/08/16 at 02:00 Miscellaneous Information 1 ea NOTE XX ; Start 05/07/16 at 20:30 Glucose (Glutose) 15 gm Q15M PRN PO DECREASED GLUCOSE; Start 05/07/16 at 20:30 Glucose (Glutose) 22.5 gm Q15M PRN PO DECREASED GLUCOSE; Start 05/07/16 at 20: 30 Dextrose (D50w Syringe) 25 ml Q15M PRN IV DECREASED GLUCOSE; Start 05/07/16 at 20:30 Dextrose (D50w Syringe) 50 ml Q15M PRN IV DECREASED GLUCOSE; Start 05/07/16 at 20:30 Glucagon (Glucagen) 1 mg Q15M PRN IM DECREASED GLUCOSE; Start 05/07/16 at 20: 30 Glucose (Glutose) 15 gm Q15M PRN BUCCAL DECREASED GLUCOSE; Start 05/07/16 at 20:30 Docusate Sodium (Colace) 100 mg Q12H PRN PO CONSTIPATION; Start 05/07/16 at 20 :30 Dutasteride (Avodart) 0.5 mg DAILY PO Last administered on 05/16/16 08:05; Admin Dose 0.5 MG; Start 05/08/16 at 09:00 Ergocalciferol (Drisdol) 50,000 unit [place]@09 PO Last administered on 05/10/16 08: 46; Admin Dose 50,000 UNIT; Start 05/10/16 at 09:00 Furosemide (Lasix) 40 mg DAILY PO Last administered on 05/16/16 08:07; Admin Dose 40 MG; Start 05/08/16 at 09:00 Acetaminophen (Tylenol Liquid) 650 mg Q6H PRN PO PAIN AND OR ELEVATED TEMP; Start 05/07/16 at 21:00 Carvedilol (Coreg) 25 mg BID PO Last administered on 05/16/16 08:06; Admin Dose 25 MG; Start 05/07/16 at 21:00 Clobetasol Propionate (Temovate 0.05% Oint) 1 applic BID TOP Last administered on 05/16/16 08:12; Admin Dose 1 APPLIC; Start 05/07/16 at 21:00 Tramadol HCl (Ultram) 50 mg Q6H PRN PO PAIN Last administered on 05/12/16 12:45 ; Admin Dose 50 MG; Start 05/07/16 at 21:00 Docusate Sodium (Colace) 100 mg BID PO Last administered on 05/16/16 08:05; Admin Dose 100 MG; Start 05/08/16 at 09:00 Senna (Senokot) 1 tab HS PO Last administered on 05/15/16 21:55; Admin Dose 1 TAB; Start 05/07/16 at 23:45 Bisacodyl (Dulcolax Supp) 10 mg DAILY PRN [place] CONSTIPATION; Start 05/07/16 at 23:45 Acetaminophen (Tylenol Tab) 650 mg Q4H PRN PO PAIN Last administered on 22:16; Admin Dose 650 MG; Start 05/07/16 at 23:45 Magnesium Hydroxide (Milk Of Mag) 30 ml BID PRN PO CONSTIPATION Last administered on 05/09/16at 20:08; Admin Dose 30 ML; Start 05/07/16 at 23:45 Lactulose (Enulose) 20 gm DAILY PRN PO CONSTIPATION Last administered on at 18:46; Admin Dose 20 GM; Start 05/07/16 at 23:45 Collagenase (Santyl) 1 applic QAM TOP Last administered on 05/16/16 08:12; Admin Dose 1 APPLIC; Start 05/08/16 at 11:00 Ascorbic Acid (Vitamin C) 500 mg DAILY PO Last administered on 05/16/16 08:05; Admin Dose 500 MG; Start 05/08/16 at 10:00 Multivitamins Therapeutic (Theragran) 1 tab DAILY PO Last administered on 08:05; Admin Dose 1 TAB; Start 05/08/16 at 10:00 Betamethasone/ Clotrimazole (Lotrisone Cr) 1 applic BID PRN TOP RASH Last administered on 05/15/16 21:57; Admin Dose 1 APPLIC; Start 05/08/16 at 10:30 Folic Acid (Folic Acid) 1 mg DAILY PO Last administered on 05/16/16 08:06; Admin Dose 1 MG; Start 05/08/16 at 10:00 Zinc Sulfate (Zinc Sulfate) 220 mg DAILY PO Last administered on 05/16/16 08:05 ; Admin Dose 220 MG; Start 05/08/16 at 10:30 Amlodipine Besylate (Norvasc) 5 mg BID PO Last administered on 05/16/16 08:07; Admin Dose 5 MG; Start 05/15/16 at 21:00 Valsartan 80 mg 80 mg BID PO Last administered on 05/16/16 08:06; Admin Dose 80 MG; Start 05/15/16 at 21:00 Sodium Chloride (1/2 NS) 1,000 ml @ 50 mls/hr Q20H IV ; Start 05/16/16 at 10:30 Linagliptin (Tradjenta) 5 mg DAILY PO ; Start 05/17/16 at 09:00; Status UNV Insulin Glargine (Lantus) 20 unit QAM SC ; Start 05/17/16 at 09:00; Status UNV Miscellaneous Information (* Miscellaneous Pharmacy Order) HYPOGLYCEMIA PROTOCOL w... ONCE ONCE XX ; Start 05/16/16 at 11:30; Stop 05/16/16 at 11:31; Status UNV Miscellaneous Information (* Miscellaneous Pharmacy Order) Discontinue Glyburide , Glipizide,... ONCE ONCE XX ; Start 05/16/16 at 11:30; Stop 05/16/16 at 11:31; Status UNV Miscellaneous Information (* Miscellaneous Pharmacy Order) Discontinue all previ... ONCE ONCE XX ; Start 05/16/16 at 11:30; Stop 05/16/16 at 11:31; Status UNV Diagnostic Test (Pha) (Accucheck) XX ; Start 05/17/16 at 02:00; Status UNV YOSVANY JADE May 16, 2016 11:35
--- NOTE | 2016-05-16 12:44 | CONS ---
Date/Time of Note Date/Time of Note DATE: 05/16/16 TIME: 12:29 Assessment/Plan Assessment/Plan Problems: (1) Diabetes mellitus type 2 in obese Status: Chronic Comment: Given intermittent hyperglycemia after meals, likely this pt. is receiving adequate dosage of basal insulin but needs better mealtime coverage. Pt. rec'ing lantus 20 qam, Novolog 8 qac, and linagliptin daily. Will cont. current lantus dose and linagliptin but increase novolog to 12 qac. Reeval tomorrow. Consultation Date/Type/Reason Admit Date/Time May 07, 2016 at 19:15 Date of Consultation: May 16, 2016 Type of Consultation: Endocrinology Reason for Consultation T2DM management Referring Provider: GLEN DOMINGO MD Hx of Present Illness 85-year-old Romans[place] male with a past medical history of essential hypertension , CAD, status post CABG, carotid stenosis, status post CEA bilaterally, BPH, type 2 diabetes, GERD, AVR, spinal stenosis with release and gout in [facility] until 1 month ago when he began to develop mental status changes and decrease in ability to perform physical tasks. After 1 week, daughter brought him to [facility]- ER where he was found on head CT to have a subdural hematoma with midline shift. Pt. evaluated by neurosurgery and monitored closely. After 1 week taken for left bur hole for drainage of subdural hematoma and placement of subdural drain. Pt. improved clinically after that. While at [facility] endo following and managing BG values and insulin regimen. 9 days ago pt. transferred to [facility]. Over the last several days glucose levels have been more erratic with increasing amounts of post-prandial hyperglycemia, correcting with ISS but recurring when pre-meal glucose was NL. Endo reconsulted. Constitutional: no complaints Eyes: no complaints ENT: no complaints Respiratory: no complaints Cardiovascular: no complaints Gastrointestinal: no complaints Genitourinary: no complaints Musculoskeletal: no complaints Neurologic: no complaints Past Medical History Medical History: coronary artery disease, diabetes, GERD, high cholesterol, hypertension, other (BPH, gout, carotid disease, aortic valve disease, spinal stenosis) Past Surgical History Past Surgical Hx: angioplasty, coronary bypass surgery, other (CEA bilaterally , AVR, left eye cataract repair, subdural bur hole) Family History Significant Family History: no pertinent family hx Social History lives at home with family Alcohol Use: none Smoking Status: Former smoker Drug Use: none Exam/Review of Systems Vital Signs Vitals VS - Last 72 Hours, by Label Date Time Temp Pulse Resp B/P Pulse Ox O2 Delivery O2 Flow Rate FiO2 05/16/16 08:19 98.0 72 20 159/62 96 Room Air 05/16/16 07:45 98.0 62 20 189/79 97 Room Air 05/16/16 07:30 98.6 71 18 152/71 97 05/16/16 04:30 98.1 65 19 142/63 99 05/15/16 19:57 98.3 67 18 160/71 98 05/15/16 07:30 98.5 62 18 137/62 98 05/14/16 19:50 78 18 145/67 98 05/14/16 19:49 98.8 72 18 145/67 98 05/14/16 14:59 67 109/60 05/14/16 14:39 66 108/56 05/14/16 07:05 98.8 64 18 138/61 100 05/14/16 06:45 70 18 194/84 05/14/16 06:18 56 20 200/80 100 Room Air 05/13/16 22:00 146/64 05/13/16 21:00 63 175/85 05/13/16 20:25 97.8 63 18 193/81 98 Vital Signs Date Time Temp Pulse Resp B/P Pulse Ox O2 Delivery O2 Flow Rate FiO2 05/16/16 08:19 98.0 72 20 159/62 96 Room Air Intake and Output 05/15/16 05/15/16 05/16/16 15:00 23:00 07:00 Intake Total 200 ml 460 ml 480 ml Output Total 1200 ml 400 ml 1300 ml Balance -1000 ml 60 ml -820 ml Exam Constitutional: alert, obese, oriented Psych: nl mood/affect, no complaints Head: No atraumatic (L frontoparietal bur hole with drain) Eyes: EOMI, PERRL, nl conjunctiva, nl lids, nl sclera ENMT: mucosa pink and moist, nl external ears & nose Neck: non-tender, other (B endarterectomy scars), supple, No bruits, No masses, No thyromegaly Respiratory: clear to auscultation, normal air movement Cardiovascular: nl pulses, regular rate and rhythm, No edema, No murmurs/extra sounds, No rub Gastrointestinal: bowel sounds, nl liver, spleen, non-tender, soft, No mass, No rebound or guarding Musculoskeletal: nl extremities to inspection Extremities: normal pulses, No clubbing, No cyanosis, No edema Neurological: CHARTER PILOT II-XII intact, nl mental status, nl speech, nl strength Additional Comments Bedside Glucose - 72 Hours Test 05/13/16 16:58 05/13/16 19:59 05/14/16 02:51 05/14/16 07:42 Bedside Glucose 175mg/dL (70-220) 81mg/dL (70-220) 88mg/dL (70-220) 148mg/dL (70-220) Test 05/14/16 12:19 05/14/16 17:05 05/14/16 21:02 05/15/16 07:51 Bedside Glucose 158mg/dL (70-220) 319mg/dL (70-220) H 165mg/dL (70-220) 139mg/dL (70-220) Test 05/15/16 12:34 05/15/16 17:20 05/15/16 20:42 05/16/16 02:19 Bedside Glucose 265mg/dL (70-220) H 162mg/dL (70-220) 291mg/dL (70-220) H 191mg/dL (70-220) Test 05/16/16 07:29 05/16/16 11:48 Bedside Glucose 183mg/dL (70-220) 278mg/dL (70-220) H Results Result Diagram: 05/15/16 1345 05/15/16 1345 Results 24 hrs Laboratory Tests Test 05/15/16 12:34 05/15/16 13:45 05/15/16 17:20 05/15/16 20:42 Bedside Glucose 265 H 162 291 H Anion Gap 17 H Basophils # 0.0 Basophils % 0.5 Blood Morphology Comment Blood Urea Nitrogen 48 H Calcium Level 8.0 L Carbon Dioxide Level 25 Chloride Level 103 Creatinine 2.21 H Eosinophils # 0.0 Eosinophils % 0.5 Glucose Level 187 Hematocrit 25.8 L Hemoglobin 8.6 L Lymphocytes # 2.2 Lymphocytes % 25.7 Mean Corpuscular Hemoglobin 31.2 Mean Corpuscular Hemoglobin Concent 33.2 Mean Corpuscular Volume 93.7 Mean Platelet Volume 8.6 Monocytes # 0.5 Monocytes % 5.9 Neutrophils # 5.7 Neutrophils % 67.4 Nucleated Red Blood Cells # 0.0 Nucleated Red Blood Cells % 0.0 Platelet Count 170 Potassium Level 4.7 Red Blood Count 2.75 L Red Cell Distribution Width 14.8 H Sodium Level 140 White Blood Count 8.5 # Test 05/16/16 02:19 05/16/16 07:29 05/16/16 11:48 Bedside Glucose 191 183 278 H Medications Medications Current Medications Rosuvastatin Calcium (Crestor) 40 mg QHS PO Last administered on 05/15/16 21:56 ; Admin Dose 40 MG; Start 05/07/16 at 21:00 Diclofenac Sodium (Voltaren 1% Gel) 2 gm TID TP Last administered on 05/16/16 12:18; Admin Dose 2 GM; Start 05/07/16 at 21:00 Montelukast Sodium (Singulair) 10 mg HS PO Last administered on 05/15/16 21:55 ; Admin Dose 10 MG; Start 05/07/16 at 21:00 Nitroglycerin (Nitroglycerin (Sl Tab) 0.4 Mg) 1 tab Q5M PRN SL CHEST PAIN; Start 05/07/16 at 20:30 Nystatin (Nystatin Powder) 1 applic BID TOP Last administered on 05/16/16 08:12 ; Admin Dose 1 APPLIC; Start 05/07/16 at 21:00 Olopatadine HCl (Patanol 0.1% Oph) 1 drop BID BOTH EYES Last administered on 08:13; Admin Dose 1 DROP; Start 05/07/16 at 21:00 Pantoprazole (Protonix Tab) 40 mg DAILY@06 PO Last administered on 05/16/16 05: 56; Admin Dose 40 MG; Start 05/08/16 at 06:00 Miscellaneous Information 1 ea NOTE XX ; Start 05/07/16 at 20:30 Glucose (Glutose) 15 gm Q15M PRN PO DECREASED GLUCOSE; Start 05/07/16 at 20:30 Glucose (Glutose) 22.5 gm Q15M PRN PO DECREASED GLUCOSE; Start 05/07/16 at 20: 30 Dextrose (D50w Syringe) 25 ml Q15M PRN IV DECREASED GLUCOSE; Start 12/29/16 at 20:30 Dextrose (D50w Syringe) 50 ml Q15M PRN IV DECREASED GLUCOSE; Start 05/07/16 at 20:30 Glucagon (Glucagen) 1 mg Q15M PRN IM DECREASED GLUCOSE; Start 05/07/16 at 20: 30 Glucose (Glutose) 15 gm Q15M PRN BUCCAL DECREASED GLUCOSE; Start 05/07/16 at 20:30 Docusate Sodium (Colace) 100 mg Q12H PRN PO CONSTIPATION; Start 05/07/16 at 20 :30 Dutasteride (Avodart) 0.5 mg DAILY PO Last administered on 05/16/16 08:05; Admin Dose 0.5 MG; Start 05/08/16 at 09:00 Ergocalciferol (Drisdol) 50,000 unit [place]@09 PO Last administered on 05/10/16 08: 46; Admin Dose 50,000 UNIT; Start 05/10/16 at 09:00 Furosemide (Lasix) 40 mg DAILY PO Last administered on 05/16/16 08:07; Admin Dose 40 MG; Start 05/08/16 at 09:00 Acetaminophen (Tylenol Liquid) 650 mg Q6H PRN PO PAIN AND OR ELEVATED TEMP; Start 05/07/16 at 21:00 Carvedilol (Coreg) 25 mg BID PO Last administered on 05/16/16 08:06; Admin Dose 25 MG; Start 05/07/16 at 21:00 Clobetasol Propionate (Temovate 0.05% Oint) 1 applic BID TOP Last administered on 05/16/16 08:12; Admin Dose 1 APPLIC; Start 05/07/16 at 21:00 Tramadol HCl (Ultram) 50 mg Q6H PRN PO PAIN Last administered on 05/12/16 12:45 ; Admin Dose 50 MG; Start 05/07/16 at 21:00 Docusate Sodium (Colace) 100 mg BID PO Last administered on 05/16/16 08:05; Admin Dose 100 MG; Start 05/08/16 at 09:00 Senna (Senokot) 1 tab HS PO Last administered on 05/15/16 21:55; Admin Dose 1 TAB; Start 05/07/16 at 23:45 Bisacodyl (Dulcolax Supp) 10 mg DAILY PRN [place] CONSTIPATION; Start 05/07/16 at 23:45 Acetaminophen (Tylenol Tab) 650 mg Q4H PRN PO PAIN Last administered on 22:16; Admin Dose 650 MG; Start 05/07/16 at 23:45 Magnesium Hydroxide (Milk Of Mag) 30 ml BID PRN PO CONSTIPATION Last administered on 05/09/16at 20:08; Admin Dose 30 ML; Start 05/07/16 at 23:45 Lactulose (Enulose) 20 gm DAILY PRN PO CONSTIPATION Last administered on at 18:46; Admin Dose 20 GM; Start 05/07/16 at 23:45 Collagenase (Santyl) 1 applic QAM TOP Last administered on 05/16/16 08:12; Admin Dose 1 APPLIC; Start 05/08/16 at 11:00 Ascorbic Acid (Vitamin C) 500 mg DAILY PO Last administered on 05/16/16 08:05; Admin Dose 500 MG; Start 05/08/16 at 10:00 Multivitamins Therapeutic (Theragran) 1 tab DAILY PO Last administered on 08:05; Admin Dose 1 TAB; Start 05/08/16 at 10:00 Betamethasone/ Clotrimazole (Lotrisone Cr) 1 applic BID PRN TOP RASH Last administered on 05/15/16 21:57; Admin Dose 1 APPLIC; Start 05/08/16 at 10:30 Folic Acid (Folic Acid) 1 mg DAILY PO Last administered on 05/16/16 08:06; Admin Dose 1 MG; Start 05/08/16 at 10:00 Zinc Sulfate (Zinc Sulfate) 220 mg DAILY PO Last administered on 05/16/16 08:05 ; Admin Dose 220 MG; Start 05/08/16 at 10:30 Amlodipine Besylate (Norvasc) 5 mg BID PO Last administered on 05/16/16 08:07; Admin Dose 5 MG; Start 05/15/16 at 21:00 Valsartan 80 mg 80 mg BID PO Last administered on 05/16/16 08:06; Admin Dose 80 MG; Start 05/15/16 at 21:00 Sodium Chloride (1/2 NS) 1,000 ml @ 50 mls/hr Q20H IV ; Start 05/16/16 at 10:30 Linagliptin (Tradjenta) 5 mg DAILY PO ; Start 05/17/16 at 09:00 Insulin Glargine (Lantus) 20 unit QAM SC ; Start 05/17/16 at 09:00 Diagnostic Test (Pha) (Accucheck) 1 XX ; Start 05/17/16 at 02:00 SANDOVAL ESQUIVEL MD May 16, 2016 12:41
--- NOTE | 2016-05-16 15:18 | CONS ---
Date/Time of Note Date/Time of Note DATE: 05/16/16 TIME: 15:10 Assessment/Plan Assessment/Plan Problems: (1) Subdural hematoma Comment: He is clinically stable. CT shows slight increase in SDH, but SDH remains small with only mild mass effect. No indication for return to OR or other invasive neurosurgical procedure now. There is, however, risk that SDH will progressively enlarge over time, and he is still at risk for new hemorrhage as well. Recommend progress with rehab as has been done. If criteria met, he can be transferred to SNF (or home). Would recommend strongly that CT be repeated in 7- 14 days or sooner if there is any neurological change. Can follow up with Dr Platt after scan if there is any concern that scan shows change for the worse. Continued very strong relative contraindication to use of antiplatet angents or anticonvulsants. These should only be used if absolutely necessary and with understanding that further worsening of SDH would be expected. Consultation Date/Type/Reason Admit Date/Time May 07, 2016 at 19:15 Initial Consult Date 05/16/16 Type of Consultation: Endocrinology Referring Provider: GLEN DOMINGO MD 24 HR Interval Summary Free Text/Dictation Called because although patient has been clinically stable without new neurological signs or symptoms, CT was repeated in preparation for transfer to SNF. CT showed increase in chronic portion of residual SDH. 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 Chronic portion of L SDH increased slightly. Overall SDH in widest area from 10 to 13 mm, but this is only a small area. Mass effect still mild and no change in midline shift at septum pellucidum (3 mm). Less subacute blood. Result Diagram: 05/15/16 1345 05/15/16 1345 Results 24 hrs Laboratory Tests Test 05/15/16 17:20 05/15/16 20:42 05/16/16 02:19 05/16/16 07:29 Bedside Glucose 162 291 H 191 183 Test 05/16/16 11:48 Bedside Glucose 278 H Medications Medications Current Medications Rosuvastatin Calcium (Crestor) 40 mg QHS PO Last administered on 05/15/16 21:56 ; Admin Dose 40 MG; Start 05/07/16 at 21:00 Diclofenac Sodium (Voltaren 1% Gel) 2 gm TID TP Last administered on 05/16/16 12:18; Admin Dose 2 GM; Start 05/07/16 at 21:00 Montelukast Sodium (Singulair) 10 mg HS PO Last administered on 05/15/16 21:55 ; Admin Dose 10 MG; Start 05/07/16 at 21:00 Nitroglycerin (Nitroglycerin (Sl Tab) 0.4 Mg) 1 tab Q5M PRN SL CHEST PAIN; Start 05/07/16 at 20:30 Nystatin (Nystatin Powder) 1 applic BID TOP Last administered on 05/16/16 08:12 ; Admin Dose 1 APPLIC; Start 05/07/16 at 21:00 Olopatadine HCl (Patanol 0.1% Oph) 1 drop BID BOTH EYES Last administered on 08:13; Admin Dose 1 DROP; Start 05/07/16 at 21:00 Pantoprazole (Protonix Tab) 40 mg DAILY@06 PO Last administered on 05/16/16 05: 56; Admin Dose 40 MG; Start 05/08/16 at 06:00 Miscellaneous Information 1 ea NOTE XX ; Start 05/07/16 at 20:30 Glucose (Glutose) 15 gm Q15M PRN PO DECREASED GLUCOSE; Start 05/07/16 at 20:30 Glucose (Glutose) 22.5 gm Q15M PRN PO DECREASED GLUCOSE; Start 05/07/16 at 20: 30 Dextrose (D50w Syringe) 25 ml Q15M PRN IV DECREASED GLUCOSE; Start 05/07/16 at 20:30 Dextrose (D50w Syringe) 50 ml Q15M PRN IV DECREASED GLUCOSE; Start 05/07/16 at 20:30 Glucagon (Glucagen) 1 mg Q15M PRN IM DECREASED GLUCOSE; Start 05/07/16 at 20: 30 Glucose (Glutose) 15 gm Q15M PRN BUCCAL DECREASED GLUCOSE; Start 05/07/16 at 20:30 Docusate Sodium (Colace) 100 mg Q12H PRN PO CONSTIPATION; Start 05/07/16 at 20 :30 Dutasteride (Avodart) 0.5 mg DAILY PO Last administered on 05/16/16 08:05; Admin Dose 0.5 MG; Start 05/08/16 at 09:00 Ergocalciferol (Drisdol) 50,000 unit [place]@09 PO Last administered on 05/10/16 08: 46; Admin Dose 50,000 UNIT; Start 05/10/16 at 09:00 Furosemide (Lasix) 40 mg DAILY PO Last administered on 05/16/16 08:07; Admin Dose 40 MG; Start 05/08/16 at 09:00 Acetaminophen (Tylenol Liquid) 650 mg Q6H PRN PO PAIN AND OR ELEVATED TEMP; Start 05/07/16 at 21:00 Carvedilol (Coreg) 25 mg BID PO Last administered on 05/16/16 08:06; Admin Dose 25 MG; Start 05/07/16 at 21:00 Clobetasol Propionate (Temovate 0.05% Oint) 1 applic BID TOP Last administered on 05/16/16 08:12; Admin Dose 1 APPLIC; Start 05/07/16 at 21:00 Tramadol HCl (Ultram) 50 mg Q6H PRN PO PAIN Last administered on 05/12/16 12:45 ; Admin Dose 50 MG; Start 05/07/16 at 21:00 Docusate Sodium (Colace) 100 mg BID PO Last administered on 05/16/16 08:05; Admin Dose 100 MG; Start 05/08/16 at 09:00 Senna (Senokot) 1 tab HS PO Last administered on 05/15/16 21:55; Admin Dose 1 TAB; Start 05/07/16 at 23:45 Bisacodyl (Dulcolax Supp) 10 mg DAILY PRN [place] CONSTIPATION; Start 05/07/16 at 23:45 Acetaminophen (Tylenol Tab) 650 mg Q4H PRN PO PAIN Last administered on 22:16; Admin Dose 650 MG; Start 05/07/16 at 23:45 Magnesium Hydroxide (Milk Of Mag) 30 ml BID PRN PO CONSTIPATION Last administered on 05/09/16at 20:08; Admin Dose 30 ML; Start 05/07/16 at 23:45 Lactulose (Enulose) 20 gm DAILY PRN PO CONSTIPATION Last administered on at 18:46; Admin Dose 20 GM; Start 05/07/16 at 23:45 Collagenase (Santyl) 1 applic QAM TOP Last administered on 05/16/16 08:12; Admin Dose 1 APPLIC; Start 05/08/16 at 11:00 Ascorbic Acid (Vitamin C) 500 mg DAILY PO Last administered on 05/16/16 08:05; Admin Dose 500 MG; Start 05/08/16 at 10:00 Multivitamins Therapeutic (Theragran) 1 tab DAILY PO Last administered on 08:05; Admin Dose 1 TAB; Start 05/08/16 at 10:00 Betamethasone/ Clotrimazole (Lotrisone Cr) 1 applic BID PRN TOP RASH Last administered on 05/15/16 21:57; Admin Dose 1 APPLIC; Start 05/08/16 at 10:30 Folic Acid (Folic Acid) 1 mg DAILY PO Last administered on 05/16/16 08:06; Admin Dose 1 MG; Start 05/08/16 at 10:00 Zinc Sulfate (Zinc Sulfate) 220 mg DAILY PO Last administered on 05/16/16 08:05 ; Admin Dose 220 MG; Start 05/08/16 at 10:30 Amlodipine Besylate (Norvasc) 5 mg BID PO Last administered on 05/16/16 08:07; Admin Dose 5 MG; Start 05/15/16 at 21:00 Valsartan 80 mg 80 mg BID PO Last administered on 05/16/16 08:06; Admin Dose 80 MG; Start 05/15/16 at 21:00 Sodium Chloride (1/2 NS) 1,000 ml @ 50 mls/hr Q20H IV ; Start 05/16/16 at 10:30 Linagliptin (Tradjenta) 5 mg DAILY PO ; Start 05/17/16 at 09:00 Insulin Glargine (Lantus) 20 unit QAM SC ; Start 05/17/16 at 09:00 Diagnostic Test (Pha) (Accucheck) 1 XX ; Start 05/17/16 at 02:00 PALLAVI FINK MD May 16, 2016 15:18
--- NOTE | 2016-05-16 18:14 | RADRPT ---
PROCEDURE: XR Chest. CLINICAL INDICATION: Cough. Dysphagia TECHNIQUE: AP view of the chest was performed. COMPARISON: 05/13/2016 FINDINGS: Mediastinal sutures and mediastinal clips are present. Surgical clips are present within the neck. Mild pulmonary vascular congestion. No pneumothorax. The cardiac silhouette is enlarged. There are atherosclerotic calcifications of the 8 aorta. The o sseous structures are intact. IMPRESSION: Mild pulmonary vascular congestion, unchanged. RPTAT: QQ .Dimitris Rico MD, MD Date Time Electronically viewed and signed by .Dimitris Rico MD, on 05/16/2016 18:14 .M/
[2016-05-16] MEDS: ROSUVASTATIN CALCIUM 40 MG TABLET PO SCH (20:21)
[2016-05-16] MEDS: SENNA TAB PO SCH (20:21)
[2016-05-16] MEDS: MONTELUKAST 10 MG TAB PO SCH (20:21)
[2016-05-16] MEDS ORDERED: INSULIN GLARGINE [LANtus] 3 ML PEN SC SCH (21:00)
[2016-05-17] VITALS (10 sets, daily range): BP systolic 121–195; BP diastolic 63–82; PULSE 65–94; RESP 14–19
[2016-05-17] MEDS: ACCUCHECK XX SCH (02:00)
[2016-05-17] MEDS: SOD CHLORIDE 0.45% 1,000 ML IV SCH (06:30)
[2016-05-17] MEDS: PANTOPRAZOLE (EC) 40 MG TAB PO SCH (06:34)
[2016-05-17] MEDS: VALSARTAN 80 MG TAB PO SCH ×2 (08:12→21:23)
[2016-05-17] MEDS: ASCORBIC ACID 500 MG TAB PO SCH (08:14)
[2016-05-17] MEDS: DUTASTERIDE 0.5 MG CAP PO SCH (08:14)
[2016-05-17] MEDS: FOLIC ACID 1 MG TAB PO SCH (08:15)
[2016-05-17] MEDS: DOCUSATE SODIUM 100 MG CAP PO SCH ×2 (08:15→21:24)
[2016-05-17] MEDS: FUROSEMIDE 40 MG TAB PO SCH (08:15)
[2016-05-17] MEDS: ZINC SULFATE 220 MG CAP PO SCH (08:15)
[2016-05-17] MEDS: LINAGLIPTIN 5 MG TABLET PO SCH (08:15)
[2016-05-17] MEDS: MULTIVITAMINS THERAPEUTIC TAB PO SCH (08:15)
[2016-05-17] MEDS: INSULIN ASPART [NOVOLOG] 3 ML PEN SC SCH ×7 (08:18→21:00)
[2016-05-17] MEDS ORDERED: INSULIN GLARGINE [LANtus] 3 ML PEN SC SCH (09:00)
[2016-05-17] MEDS ORDERED: INSULIN GLARGINE [LANtus] 3 ML PEN SC ONE ×2 (10:00)
[2016-05-17] MEDS: COLLAGENASE 30 GM TUBE TOP SCH (10:09)
[2016-05-17] MEDS: NYSTATIN 30 GM POWDER BTL TOP SCH ×2 (10:09→21:26)
[2016-05-17] MEDS: BETAMETHASONE/CLOTRIMAZOLE 15 GM CR TOP PRN (10:10)
[2016-05-17] MEDS: OLOPATADINE 0.1% 5 ML OPH BOTH EYES SCH ×2 (10:10→21:24)
--- NOTE | 2016-05-17 10:29 | CONS ---
Date/Time of Note Date/Time of Note DATE: 05/17/16 TIME: 10:24 Consult Date/Type/Reason Admit Date/Time May 07, 2016 at 19:15 Initial Consult Date 05/16/16 Type of Consultation: neph Ordering Provider: GLEN DOMINGO MD Subjective This is an 85-year-old gentleman with past medical history of obesity, essential hypertension, coronary artery disease status post CABG, carotid stenosis status post CEA bilaterally, BPH, diabetes mellitus type 2, GERD, AVR, spinal stenosis, and gout who was recently admitted to [facility] on 04/23/2016 and was diagnosed with subdural hematoma with midline shift and was admitted to the ICU. sp left duane hole for drainage of subdural hematoma with placement of a subdural drain on 04/28/2016. the patient denies having any chest pain, shortness of breath, nausea, vomiting , diarrhea. No headache, dizziness, lightheadedness. No change in visual acuity, diplopia, photophobia. He has been able to tolerate oral intake. He has been placed on pureed diet without any evidence of aspiration. General: The patient is well-developed, Not in acute distress. HEENT: Atraumatic, normocephalic. The pupils are equal and round . Neck: Supple with full range of motion. Chest: Normal expansion of the thorax during inspiration Lungs: Clear to auscultation bilaterally Heart: Normal S1-S2, Regular rhythm and rate. Abdomen: Soft , nontender, nondistended , bowel sounds are present. Extremities: Normal to inspection, no edema no cyanosis Neurologic: Normal mental status,The patient is awake, alert and oriented . Objective Vital Signs Date Time Temp Pulse Resp B/P Pulse Ox O2 Delivery O2 Flow Rate FiO2 05/17/16 08:45 98.4 78 14 184/74 99 05/17/16 08:00 Room Air Intake and Output 05/16/16 05/16/16 05/17/16 15:00 23:00 07:00 Intake Total 1330 ml 660 ml Output Total 1700 ml 1500 ml Balance -370 ml -840 ml Results/Medications Result Diagram: 05/15/16 1345 05/15/16 1345 Results 24 hrs Laboratory Tests Test 05/16/16 11:48 05/16/16 16:45 05/16/16 20:18 05/17/16 02:05 Bedside Glucose 278 H 98 286 H 150 Test 05/17/16 07:54 Bedside Glucose 207 Medications Current Medications Rosuvastatin Calcium (Crestor) 40 mg QHS PO Last administered on 05/16/16 20:21 ; Admin Dose 40 MG; Start 05/07/16 at 21:00 Diclofenac Sodium (Voltaren 1% Gel) 2 gm TID TP Last administered on 05/16/16 20:31; Admin Dose 2 GM; Start 05/07/16 at 21:00 Montelukast Sodium (Singulair) 10 mg HS PO Last administered on 05/16/16 20:21 ; Admin Dose 10 MG; Start 05/07/16 at 21:00 Nitroglycerin (Nitroglycerin (Sl Tab) 0.4 Mg) 1 tab Q5M PRN SL CHEST PAIN; Start 05/07/16 at 20:30 Nystatin (Nystatin Powder) 1 applic BID TOP Last administered on 05/17/16 10:09 ; Admin Dose 1 APPLIC; Start 05/07/16 at 21:00 Olopatadine HCl (Patanol 0.1% Oph) 1 drop BID BOTH EYES Last administered on 10:10; Admin Dose 1 DROP; Start 05/07/16 at 21:00 Pantoprazole (Protonix Tab) 40 mg DAILY@06 PO Last administered on 05/17/16 06: 34; Admin Dose 40 MG; Start 05/08/16 at 06:00 Miscellaneous Information 1 ea NOTE XX ; Start 05/07/16 at 20:30 Glucose (Glutose) 15 gm Q15M PRN PO DECREASED GLUCOSE; Start 05/07/16 at 20:30 Glucose (Glutose) 22.5 gm Q15M PRN PO DECREASED GLUCOSE; Start 05/07/16 at 20: 30 Dextrose (D50w Syringe) 25 ml Q15M PRN IV DECREASED GLUCOSE; Start 05/07/16 at 20:30 Dextrose (D50w Syringe) 50 ml Q15M PRN IV DECREASED GLUCOSE; Start 05/07/16 at 20:30 Glucagon (Glucagen) 1 mg Q15M PRN IM DECREASED GLUCOSE; Start 05/07/16 at 20: 30 Glucose (Glutose) 15 gm Q15M PRN BUCCAL DECREASED GLUCOSE; Start 12/29/16 at 20:30 Docusate Sodium (Colace) 100 mg Q12H PRN PO CONSTIPATION; Start 05/07/16 at 20 :30 Dutasteride (Avodart) 0.5 mg DAILY PO Last administered on 05/17/16 08:14; Admin Dose 0.5 MG; Start 05/08/16 at 09:00 Ergocalciferol (Drisdol) 50,000 unit [place]@09 PO Last administered on 05/10/16 08: 46; Admin Dose 50,000 UNIT; Start 05/10/16 at 09:00 Furosemide (Lasix) 40 mg DAILY PO Last administered on 05/17/16 08:15; Admin Dose 40 MG; Start 05/08/16 at 09:00 Acetaminophen (Tylenol Liquid) 650 mg Q6H PRN PO PAIN AND OR ELEVATED TEMP; Start 05/07/16 at 21:00 Carvedilol (Coreg) 25 mg BID PO Last administered on 05/16/16 08:06; Admin Dose 25 MG; Start 05/07/16 at 21:00; Status Future Hold Clobetasol Propionate (Temovate 0.05% Oint) 1 applic BID TOP Last administered on 05/16/16 20:31; Admin Dose 1 APPLIC; Start 05/07/16 at 21:00 Tramadol HCl (Ultram) 50 mg Q6H PRN PO PAIN Last administered on 05/12/16 12:45 ; Admin Dose 50 MG; Start 05/07/16 at 21:00 Docusate Sodium (Colace) 100 mg BID PO Last administered on 05/17/16 08:15; Admin Dose 100 MG; Start 05/08/16 at 09:00 Senna (Senokot) 1 tab HS PO Last administered on 05/16/16 20:21; Admin Dose 1 TAB; Start 05/07/16 at 23:45 Bisacodyl (Dulcolax Supp) 10 mg DAILY PRN [place] CONSTIPATION; Start 05/07/16 at 23:45 Acetaminophen (Tylenol Tab) 650 mg Q4H PRN PO PAIN Last administered on 22:16; Admin Dose 650 MG; Start 05/07/16 at 23:45 Magnesium Hydroxide (Milk Of Mag) 30 ml BID PRN PO CONSTIPATION Last administered on 12/31/16at 20:08; Admin Dose 30 ML; Start 05/07/16 at 23:45 Lactulose (Enulose) 20 gm DAILY PRN PO CONSTIPATION Last administered on at 18:46; Admin Dose 20 GM; Start 05/07/16 at 23:45 Collagenase (Santyl) 1 applic QAM TOP Last administered on 05/17/16 10:09; Admin Dose 1 APPLIC; Start 05/08/16 at 11:00 Ascorbic Acid (Vitamin C) 500 mg DAILY PO Last administered on 05/17/16 08:14; Admin Dose 500 MG; Start 05/08/16 at 10:00 Multivitamins Therapeutic (Theragran) 1 tab DAILY PO Last administered on 08:15; Admin Dose 1 TAB; Start 05/08/16 at 10:00 Betamethasone/ Clotrimazole (Lotrisone Cr) 1 applic BID PRN TOP RASH Last administered on 05/17/16 10:10; Admin Dose 1 APPLIC; Start 05/08/16 at 10:30 Folic Acid (Folic Acid) 1 mg DAILY PO Last administered on 05/17/16 08:15; Admin Dose 1 MG; Start 05/08/16 at 10:00 Zinc Sulfate (Zinc Sulfate) 220 mg DAILY PO Last administered on 05/17/16 08:15 ; Admin Dose 220 MG; Start 05/08/16 at 10:30 Amlodipine Besylate (Norvasc) 5 mg BID PO Last administered on 05/16/16 08:07; Admin Dose 5 MG; Start 05/15/16 at 21:00; Status Future Hold Valsartan 80 mg 80 mg BID PO Last administered on 05/17/16 08:12; Admin Dose 80 MG; Start 05/15/16 at 21:00 Sodium Chloride (1/2 NS) 1,000 ml @ 50 mls/hr Q20H IV ; Start 05/16/16 at 10:30 Linagliptin (Tradjenta) 5 mg DAILY PO Last administered on 05/17/16 08:15; Admin Dose 5 MG; Start 05/17/16 at 09:00 Diagnostic Test (Pha) (Accucheck) 1 ea 02 XX ; Start 05/17/16 at 02:00 Insulin Glargine (Lantus) 24 unit QAM SC ; Start 05/18/16 at 09:00 Assessment/Plan Chief Complaint/Hosp Course 1. Status post subdural hematoma and midline shift status post left frontal duane hole and placement of subdural drain. Neurosurgery was consulted. The patient is stable. Continue physical therapy. 2. Encephalopathy, resolving. 3. Diabetes mellitus. Continue medical management with Tradjenta, Lantus, insulin sliding scale, NovoLog. 4. Chronic kidney insufficiency. Continue to monitor. 5. History of coronary artery disease status post coronary artery bypass graft. Continue Coreg and statin. Unfortunately, the patient does not qualify for any anticoagulation or antiplatelet secondary to subdural hematoma. 6. Gastroesophageal reflux disease. Continue PPI. 7. History of aortic valve replacement as above. The patient does not qualify for any anticoagulation at this time secondary to subdural hematoma. 8. Gout. Continue medical management. 9. Benign prostatic hypertrophy. Continue avodart. 10. Anemia of chronic disease. Continue to monitor. If patient's hemoglobin is less than 7.5, we will transfuse. Problems: ERNESTO BRADY MD May 17, 2016 10:29
[2016-05-17] MEDS: CLOBETASOL 0.05% 15 GM OINT TOP SCH ×2 (11:00→21:25)
[2016-05-17] MEDS: ERGOCALCIFEROL 50,000 UNIT CAP PO SCH (11:00)
[2016-05-17] MEDS: DICLOFENAC SODIUM 1% GEL 100 GM TUBE TP SCH ×3 (11:00→21:26)
--- NOTE | 2016-05-17 11:01 | CONS ---
Date/Time of Note Date/Time of Note DATE: 05/17/16 TIME: 10:58 Consult Date/Type/Reason Admit Date/Time May 07, 2016 at 19:15 Initial Consult Date 05/16/16 Type of Consultation: neph Ordering Provider: GLEN DOMINGO MD Subjective This is an 85-year-old gentleman with past medical history of obesity, essential hypertension, coronary artery disease status post CABG, carotid stenosis status post CEA bilaterally, BPH, diabetes mellitus type 2, GERD, AVR, spinal stenosis, and gout who was recently admitted to [facility] on 04/23/2016 and was diagnosed with subdural hematoma with midline shift and was admitted to the ICU. sp left duane hole for drainage of subdural hematoma with placement of a subdural drain on 04/28/2016. the patient denies having any chest pain, shortness of breath, nausea, vomiting , diarrhea. No headache, dizziness, lightheadedness. No change in visual acuity, diplopia, photophobia. He has been able to tolerate oral intake. He has been placed on pureed diet without any evidence of aspiration. General: The patient is well-developed, Not in acute distress. HEENT: Atraumatic, normocephalic. The pupils are equal and round . Neck: Supple with full range of motion. Chest: Normal expansion of the thorax during inspiration Lungs: Clear to auscultation bilaterally Heart: Normal S1-S2, Regular rhythm and rate. Abdomen: Soft , nontender, nondistended , bowel sounds are present. Extremities: Normal to inspection, no edema no cyanosis Neurologic: Normal mental status,The patient is awake, alert and oriented . Objective Vital Signs Date Time Temp Pulse Resp B/P Pulse Ox O2 Delivery O2 Flow Rate FiO2 05/17/16 08:45 98.4 78 14 184/74 99 05/17/16 08:00 Room Air Intake and Output 05/16/16 05/16/16 05/17/16 15:00 23:00 07:00 Intake Total 1330 ml 660 ml Output Total 1700 ml 1500 ml Balance -370 ml -840 ml Results/Medications Result Diagram: 05/15/16 1345 05/15/16 1345 Results 24 hrs Laboratory Tests Test 05/16/16 11:48 05/16/16 16:45 05/16/16 20:18 05/17/16 02:05 Bedside Glucose 278 H 98 286 H 150 Test 05/17/16 07:54 Bedside Glucose 207 Medications Current Medications Rosuvastatin Calcium (Crestor) 40 mg QHS PO Last administered on 05/16/16 20:21 ; Admin Dose 40 MG; Start 05/07/16 at 21:00 Diclofenac Sodium (Voltaren 1% Gel) 2 gm TID TP Last administered on 05/16/16 20:31; Admin Dose 2 GM; Start 05/07/16 at 21:00 Montelukast Sodium (Singulair) 10 mg HS PO Last administered on 05/16/16 20:21 ; Admin Dose 10 MG; Start 05/07/16 at 21:00 Nitroglycerin (Nitroglycerin (Sl Tab) 0.4 Mg) 1 tab Q5M PRN SL CHEST PAIN; Start 05/07/16 at 20:30 Nystatin (Nystatin Powder) 1 applic BID TOP Last administered on 05/17/16 10:09 ; Admin Dose 1 APPLIC; Start 05/07/16 at 21:00 Olopatadine HCl (Patanol 0.1% Oph) 1 drop BID BOTH EYES Last administered on 10:10; Admin Dose 1 DROP; Start 05/07/16 at 21:00 Pantoprazole (Protonix Tab) 40 mg DAILY@06 PO Last administered on 05/17/16 06: 34; Admin Dose 40 MG; Start 05/08/16 at 06:00 Miscellaneous Information 1 ea NOTE XX ; Start 05/07/16 at 20:30 Glucose (Glutose) 15 gm Q15M PRN PO DECREASED GLUCOSE; Start 05/07/16 at 20:30 Glucose (Glutose) 22.5 gm Q15M PRN PO DECREASED GLUCOSE; Start 05/07/16 at 20: 30 Dextrose (D50w Syringe) 25 ml Q15M PRN IV DECREASED GLUCOSE; Start 05/07/16 at 20:30 Dextrose (D50w Syringe) 50 ml Q15M PRN IV DECREASED GLUCOSE; Start 05/07/16 at 20:30 Glucagon (Glucagen) 1 mg Q15M PRN IM DECREASED GLUCOSE; Start 05/07/16 at 20: 30 Glucose (Glutose) 15 gm Q15M PRN BUCCAL DECREASED GLUCOSE; Start 12/29/16 at 20:30 Docusate Sodium (Colace) 100 mg Q12H PRN PO CONSTIPATION; Start 05/07/16 at 20 :30 Dutasteride (Avodart) 0.5 mg DAILY PO Last administered on 05/17/16 08:14; Admin Dose 0.5 MG; Start 05/08/16 at 09:00 Ergocalciferol (Drisdol) 50,000 unit [place]@09 PO Last administered on 05/10/16 08: 46; Admin Dose 50,000 UNIT; Start 05/10/16 at 09:00 Furosemide (Lasix) 40 mg DAILY PO Last administered on 05/17/16 08:15; Admin Dose 40 MG; Start 05/08/16 at 09:00 Acetaminophen (Tylenol Liquid) 650 mg Q6H PRN PO PAIN AND OR ELEVATED TEMP; Start 05/07/16 at 21:00 Carvedilol (Coreg) 25 mg BID PO Last administered on 05/16/16 08:06; Admin Dose 25 MG; Start 05/07/16 at 21:00; Status Future Hold Clobetasol Propionate (Temovate 0.05% Oint) 1 applic BID TOP Last administered on 05/16/16 20:31; Admin Dose 1 APPLIC; Start 05/07/16 at 21:00 Tramadol HCl (Ultram) 50 mg Q6H PRN PO PAIN Last administered on 05/12/16 12:45 ; Admin Dose 50 MG; Start 05/07/16 at 21:00 Docusate Sodium (Colace) 100 mg BID PO Last administered on 05/17/16 08:15; Admin Dose 100 MG; Start 05/08/16 at 09:00 Senna (Senokot) 1 tab HS PO Last administered on 05/16/16 20:21; Admin Dose 1 TAB; Start 05/07/16 at 23:45 Bisacodyl (Dulcolax Supp) 10 mg DAILY PRN [place] CONSTIPATION; Start 05/07/16 at 23:45 Acetaminophen (Tylenol Tab) 650 mg Q4H PRN PO PAIN Last administered on 22:16; Admin Dose 650 MG; Start 05/07/16 at 23:45 Magnesium Hydroxide (Milk Of Mag) 30 ml BID PRN PO CONSTIPATION Last administered on 12/31/16at 20:08; Admin Dose 30 ML; Start 05/07/16 at 23:45 Lactulose (Enulose) 20 gm DAILY PRN PO CONSTIPATION Last administered on at 18:46; Admin Dose 20 GM; Start 05/07/16 at 23:45 Collagenase (Santyl) 1 applic QAM TOP Last administered on 05/17/16 10:09; Admin Dose 1 APPLIC; Start 05/08/16 at 11:00 Ascorbic Acid (Vitamin C) 500 mg DAILY PO Last administered on 05/17/16 08:14; Admin Dose 500 MG; Start 05/08/16 at 10:00 Multivitamins Therapeutic (Theragran) 1 tab DAILY PO Last administered on 08:15; Admin Dose 1 TAB; Start 05/08/16 at 10:00 Betamethasone/ Clotrimazole (Lotrisone Cr) 1 applic BID PRN TOP RASH Last administered on 05/17/16 10:10; Admin Dose 1 APPLIC; Start 05/08/16 at 10:30 Folic Acid (Folic Acid) 1 mg DAILY PO Last administered on 05/17/16 08:15; Admin Dose 1 MG; Start 05/08/16 at 10:00 Zinc Sulfate (Zinc Sulfate) 220 mg DAILY PO Last administered on 05/17/16 08:15 ; Admin Dose 220 MG; Start 05/08/16 at 10:30 Amlodipine Besylate (Norvasc) 5 mg BID PO Last administered on 05/16/16 08:07; Admin Dose 5 MG; Start 05/15/16 at 21:00; Status Future Hold Valsartan 80 mg 80 mg BID PO Last administered on 05/17/16 08:12; Admin Dose 80 MG; Start 05/15/16 at 21:00 Sodium Chloride (1/2 NS) 1,000 ml @ 50 mls/hr Q20H IV ; Start 05/16/16 at 10:30 Linagliptin (Tradjenta) 5 mg DAILY PO Last administered on 05/17/16 08:15; Admin Dose 5 MG; Start 05/17/16 at 09:00 Diagnostic Test (Pha) (Accucheck) 1 ea 02 XX ; Start 05/17/16 at 02:00 Insulin Glargine (Lantus) 24 unit QAM SC ; Start 05/18/16 at 09:00 Assessment/Plan Chief Complaint/Hosp Course 1. Acute on chronic renal insufficiency. nonoliguric. fu labs and urine studies. fu cira. avoid neprhotoxins. all meds dosed ok. if creat continues to worsen, will need to stop lasix. 2. Status post subdural hematoma and midline shift status post left frontal duane hole and placement of subdural drain. Neurosurgery was consulted. The patient is stable. Continue physical therapy. 3. Diabetes mellitus. Continue medical management with Tradjenta, Lantus, insulin sliding scale, NovoLog. 4. Chronic kidney insufficiency. possible underlying dm nephropathy. monitor. 5. History of coronary artery disease status post coronary artery bypass graft. Continue Coreg and statin. Unfortunately, the patient does not qualify for any anticoagulation or antiplatelet secondary to subdural hematoma. 6. Gastroesophageal reflux disease. Continue PPI. 7. History of aortic valve replacement as above. The patient does not qualify for any anticoagulation at this time secondary to subdural hematoma. 8. Gout. Continue medical management. 9. Benign prostatic hypertrophy. Continue avodart. 10. Anemia of chronic disease. Continue to monitor. If patient's hemoglobin is less than 7.5, we will transfuse. Problems: ERNESTO BRADY MD May 17, 2016 11:01
--- NOTE | 2016-05-17 11:14 | CONS ---
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 Last night despite increased dose of Novolog , glucose levels rosas above 200 mg/dL after dinner. Pt. rec'ed ISS at hs and decreased O/N but this am was back to being above goal. Will increase lantus from 20 to 24 qam and increase Novolog again from 12 to 16 qac. Reeval in am. Consultation Date/Type/Reason Admit Date/Time May 07, 2016 at 19:15 Initial Consult Date 05/16/16 Type of Consultation: Endocrinology Reason for Consultation T2DM management Referring Provider: GLEN DOMINGO MD 24 HR Interval Summary Constitutional: no complaints Exam/Review of Systems Vital Signs Vitals VS - Last 72 Hours, by Label Date Time Temp Pulse Resp B/P Pulse Ox O2 Delivery O2 Flow Rate FiO2 05/17/16 10:45 69 144/63 05/17/16 09:00 78 133/74 05/17/16 08:45 98.4 78 14 184/74 99 05/17/16 08:30 78 184/74 05/17/16 08:00 98.1 66 15 184/80 99 05/17/16 08:00 97.9 18 195/82 94 Room Air 05/16/16 20:00 98.0 75 18 153/72 99 Room Air 05/16/16 17:42 74 18 105/55 96 Room Air 05/16/16 16:00 84 18 126/56 96 Room Air 05/16/16 15:45 90 20 98/56 97 Room Air 05/16/16 15:40 84 20 117/56 05/16/16 15:30 78 20 135/76 97 Room Air 05/16/16 08:19 98.0 72 20 159/62 96 Room Air 05/16/16 07:45 98.0 62 20 189/79 97 Room Air 05/16/16 07:30 98.6 71 18 152/71 97 05/16/16 04:30 98.1 65 19 142/63 99 05/15/16 19:57 98.3 67 18 160/71 98 05/15/16 07:30 98.5 62 18 137/62 98 05/14/16 19:50 78 18 145/67 98 05/14/16 19:49 98.8 72 18 145/67 98 05/14/16 14:59 67 109/60 05/14/16 14:39 66 108/56 Vital Signs Date Time Temp Pulse Resp B/P Pulse Ox O2 Delivery O2 Flow Rate FiO2 05/17/16 10:45 69 144/63 05/17/16 08:45 98.4 14 99 05/17/16 08:00 Room Air Intake and Output 05/16/16 05/16/16 05/17/16 15:00 23:00 07:00 Intake Total 1330 ml 660 ml Output Total 1700 ml 1500 ml Balance -370 ml -840 ml Exam Constitutional: alert, obese, oriented Respiratory: clear to auscultation, normal air movement Cardiovascular: nl pulses, regular rate and rhythm, No edema, No murmurs/extra sounds, No rub Gastrointestinal: bowel sounds, nl liver, spleen, non-tender, soft, No mass, No rebound or guarding Musculoskeletal: nl extremities to inspection Extremities: normal pulses, No clubbing, No cyanosis, No edema Neurological: MANAGER SECURITY AND SAFETY II-XII intact, nl mental status, nl speech, nl strength Additional Comments Bedside Glucose - 72 Hours Test 05/14/16 12:19 05/14/16 17:05 05/14/16 21:02 05/15/16 07:51 Bedside Glucose 158mg/dL (70-220) 319mg/dL (70-220) H 165mg/dL (70-220) 139mg/dL (70-220) Test 05/15/16 12:34 05/15/16 17:20 05/15/16 20:42 05/16/16 02:19 Bedside Glucose 265mg/dL (70-220) H 162mg/dL (70-220) 291mg/dL (70-220) H 191mg/dL (70-220) Test 05/16/16 07:29 05/16/16 11:48 05/16/16 16:45 05/16/16 20:18 Bedside Glucose 183mg/dL (70-220) 278mg/dL (70-220) H 98mg/dL (70-220) 286mg/dL (70-220) H Test 05/17/16 02:05 05/17/16 07:54 Bedside Glucose 150mg/dL (70-220) 207mg/dL (70-220) Results Result Diagram: 05/15/16 1345 05/15/16 1345 Results 24 hrs Laboratory Tests Test 05/16/16 11:48 05/16/16 16:45 05/16/16 20:18 05/17/16 02:05 Bedside Glucose 278 H 98 286 H 150 Test 05/17/16 07:54 Bedside Glucose 207 Medications Medications Current Medications Rosuvastatin Calcium (Crestor) 40 mg QHS PO Last administered on 05/16/16 20:21 ; Admin Dose 40 MG; Start 05/07/16 at 21:00 Diclofenac Sodium (Voltaren 1% Gel) 2 gm TID TP Last administered on 05/17/16 11:00; Admin Dose 2 GM; Start 05/07/16 at 21:00 Montelukast Sodium (Singulair) 10 mg HS PO Last administered on 05/16/16 20:21 ; Admin Dose 10 MG; Start 05/07/16 at 21:00 Nitroglycerin (Nitroglycerin (Sl Tab) 0.4 Mg) 1 tab Q5M PRN SL CHEST PAIN; Start 05/07/16 at 20:30 Nystatin (Nystatin Powder) 1 applic BID TOP Last administered on 05/17/16 10:09 ; Admin Dose 1 APPLIC; Start 05/07/16 at 21:00 Olopatadine HCl (Patanol 0.1% Oph) 1 drop BID BOTH EYES Last administered on 10:10; Admin Dose 1 DROP; Start 05/07/16 at 21:00 Pantoprazole (Protonix Tab) 40 mg DAILY@06 PO Last administered on 05/17/16 06: 34; Admin Dose 40 MG; Start 05/08/16 at 06:00 Miscellaneous Information 1 ea NOTE XX ; Start 05/07/16 at 20:30 Glucose (Glutose) 15 gm Q15M PRN PO DECREASED GLUCOSE; Start 05/07/16 at 20:30 Glucose (Glutose) 22.5 gm Q15M PRN PO DECREASED GLUCOSE; Start 05/07/16 at 20: 30 Dextrose (D50w Syringe) 25 ml Q15M PRN IV DECREASED GLUCOSE; Start 05/07/16 at 20:30 Dextrose (D50w Syringe) 50 ml Q15M PRN IV DECREASED GLUCOSE; Start 05/07/16 at 20:30 Glucagon (Glucagen) 1 mg Q15M PRN IM DECREASED GLUCOSE; Start 05/07/16 at 20: 30 Glucose (Glutose) 15 gm Q15M PRN BUCCAL DECREASED GLUCOSE; Start 05/07/16 at 20:30 Docusate Sodium (Colace) 100 mg Q12H PRN PO CONSTIPATION; Start 05/07/16 at 20 :30 Dutasteride (Avodart) 0.5 mg DAILY PO Last administered on 05/17/16 08:14; Admin Dose 0.5 MG; Start 05/08/16 at 09:00 Ergocalciferol (Drisdol) 50,000 unit [place]@09 PO Last administered on 05/17/16 11: 00; Admin Dose 50,000 UNIT; Start 05/10/16 at 09:00 Furosemide (Lasix) 40 mg DAILY PO Last administered on 05/17/16 08:15; Admin Dose 40 MG; Start 05/08/16 at 09:00 Acetaminophen (Tylenol Liquid) 650 mg Q6H PRN PO PAIN AND OR ELEVATED TEMP; Start 05/07/16 at 21:00 Carvedilol (Coreg) 25 mg BID PO Last administered on 05/16/16 08:06; Admin Dose 25 MG; Start 05/07/16 at 21:00; Status Future Hold Clobetasol Propionate (Temovate 0.05% Oint) 1 applic BID TOP Last administered on 05/17/16 11:00; Admin Dose 1 APPLIC; Start 05/07/16 at 21:00 Tramadol HCl (Ultram) 50 mg Q6H PRN PO PAIN Last administered on 05/12/16 12:45 ; Admin Dose 50 MG; Start 05/07/16 at 21:00 Docusate Sodium (Colace) 100 mg BID PO Last administered on 05/17/16 08:15; Admin Dose 100 MG; Start 05/08/16 at 09:00 Senna (Senokot) 1 tab HS PO Last administered on 05/16/16 20:21; Admin Dose 1 TAB; Start 05/07/16 at 23:45 Bisacodyl (Dulcolax Supp) 10 mg DAILY PRN [place] CONSTIPATION; Start 05/07/16 at 23:45 Acetaminophen (Tylenol Tab) 650 mg Q4H PRN PO PAIN Last administered on 22:16; Admin Dose 650 MG; Start 05/07/16 at 23:45 Magnesium Hydroxide (Milk Of Mag) 30 ml BID PRN PO CONSTIPATION Last administered on 05/09/16at 20:08; Admin Dose 30 ML; Start 05/07/16 at 23:45 Lactulose (Enulose) 20 gm DAILY PRN PO CONSTIPATION Last administered on at 18:46; Admin Dose 20 GM; Start 05/07/16 at 23:45 Collagenase (Santyl) 1 applic QAM TOP Last administered on 05/17/16 10:09; Admin Dose 1 APPLIC; Start 05/08/16 at 11:00 Ascorbic Acid (Vitamin C) 500 mg DAILY PO Last administered on 05/17/16 08:14; Admin Dose 500 MG; Start 05/08/16 at 10:00 Multivitamins Therapeutic (Theragran) 1 tab DAILY PO Last administered on 08:15; Admin Dose 1 TAB; Start 05/08/16 at 10:00 Betamethasone/ Clotrimazole (Lotrisone Cr) 1 applic BID PRN TOP RASH Last administered on 05/17/16 10:10; Admin Dose 1 APPLIC; Start 05/08/16 at 10:30 Folic Acid (Folic Acid) 1 mg DAILY PO Last administered on 05/17/16 08:15; Admin Dose 1 MG; Start 05/08/16 at 10:00 Zinc Sulfate (Zinc Sulfate) 220 mg DAILY PO Last administered on 05/17/16 08:15 ; Admin Dose 220 MG; Start 05/08/16 at 10:30 Amlodipine Besylate (Norvasc) 5 mg BID PO Last administered on 05/16/16 08:07; Admin Dose 5 MG; Start 05/15/16 at 21:00; Status Future Hold Valsartan 80 mg 80 mg BID PO Last administered on 05/17/16 08:12; Admin Dose 80 MG; Start 05/15/16 at 21:00 Sodium Chloride (1/2 NS) 1,000 ml @ 50 mls/hr Q20H IV ; Start 05/16/16 at 10:30 Linagliptin (Tradjenta) 5 mg DAILY PO Last administered on 05/17/16t 08:15; Admin Dose 5 MG; Start 05/17/16 at 09:00 Diagnostic Test (Pha) (Accucheck) 1 ea 02 XX ; Start 05/17/16 at 02:00 Insulin Glargine (Lantus) 24 unit QAM SC ; Start 05/18/16 at 09:00 SANDOVAL ESQUIVEL MD May 17, 2016 11:14
--- NOTE | 2016-05-17 12:24 | PN ---
Date/Time of Note Date/Time of Note DATE: 05/17/16 TIME: 12:14 Assessment/Plan Lines/Catheters IV Catheter Type (from Nrsg): PICC Line Urinary Cath still in place: Yes Assessment/Plan Assessment/Plan 1. Left SDH status post left frontal duane hole and placement of subdural drain, with impaired mobility/gait/ADLs/cognition and dysphagia. Continue PT/OT/ST. Continue modified diet per ST, maintain aspiration precautions. Mod to severe impairments with memory and problem solving. Increased size of chronic portion of SDH on follow up head CT. No new focal neurological changes, continue to closely monitor. NSGY recommendations appreciated, recommend follow up head CT in 7-14 days, sooner if any new focal changes. 2. Encephalopathy. Continue ST. 3. Hypertension. With orthostatic hypotension, internal medicine adjusting medications. 4. Stage 3 sacral decub. Continue wound care 5. CAD. Continue medical management. 6. DM. Blood sugars uncontrolled. Endocrinology adjusting regimen. 7. Spinal Stenosis. Continue pain control. 8. NORMAN on CKD. Nephrology consulted and following. Continue to monitor renal function, avoid nephrotoxic agents. 9. Anemia. Continue to monitor hemoglobin/hematocrit. 10. BPH. Continue medical management. Continue ralph catheter care. Subjective 24 Hr Interval Summary Free Text/Dictation Rehab progress note Subjective: Reports intermittent dry cough, not related to food intake. Denies sore throat, no chills or fevers, no shortness of breath. CXR done shows no acute changes. ROS: Denies abdominal pain, no nausea or vomiting, no headache, no dizziness. Exam/Review of Systems Vital Signs Vitals Vital Signs Date Time Temp Pulse Resp B/P Pulse Ox O2 Delivery O2 Flow Rate FiO2 05/17/16 10:45 69 144/63 05/17/16 08:45 98.4 14 99 05/17/16 08:00 Room Air Intake and Output 05/16/16 05/16/16 05/17/16 15:00 23:00 07:00 Intake Total 1330 ml 660 ml Output Total 1700 ml 1500 ml Balance -370 ml -840 ml Exam General: Awake, alert, no acute distress HEENT: NC/AT, mucous membranes moist, hard of hearing. CV: Regular rate, s1s2 Lungs: Symmetrical air entry bilaterally, no crackles or wheezing Abdomen soft, nontender, Bowel sounds present Extremities without new swelling, no cyanosis, Neuro without new focal changes. Results Result Diagram: 05/15/16 1345 05/15/16 1345 Results 24 hrs Laboratory Tests Test 05/16/16 16:45 05/16/16 20:18 05/17/16 02:05 05/17/16 07:54 Bedside Glucose 98 286 H 150 207 Medications Medications Current Medications Rosuvastatin Calcium (Crestor) 40 mg QHS PO Last administered on 05/16/16 20:21 ; Admin Dose 40 MG; Start 05/07/16 at 21:00 Diclofenac Sodium (Voltaren 1% Gel) 2 gm TID TP Last administered on 05/17/16 11:00; Admin Dose 2 GM; Start 05/07/16 at 21:00 Montelukast Sodium (Singulair) 10 mg HS PO Last administered on 05/16/16 20:21 ; Admin Dose 10 MG; Start 05/07/16 at 21:00 Nitroglycerin (Nitroglycerin (Sl Tab) 0.4 Mg) 1 tab Q5M PRN SL CHEST PAIN; Start 05/07/16 at 20:30 Nystatin (Nystatin Powder) 1 applic BID TOP Last administered on 05/17/16 10:09 ; Admin Dose 1 APPLIC; Start 05/07/16 at 21:00 Olopatadine HCl (Patanol 0.1% Oph) 1 drop BID BOTH EYES Last administered on 10:10; Admin Dose 1 DROP; Start 05/07/16 at 21:00 Pantoprazole (Protonix Tab) 40 mg DAILY@06 PO Last administered on 05/17/16 06: 34; Admin Dose 40 MG; Start 05/08/16 at 06:00 Miscellaneous Information 1 ea NOTE XX ; Start 05/07/16 at 20:30 Glucose (Glutose) 15 gm Q15M PRN PO DECREASED GLUCOSE; Start 05/07/16 at 20:30 Glucose (Glutose) 22.5 gm Q15M PRN PO DECREASED GLUCOSE; Start 05/07/16 at 20: 30 Dextrose (D50w Syringe) 25 ml Q15M PRN IV DECREASED GLUCOSE; Start 05/07/16 at 20:30 Dextrose (D50w Syringe) 50 ml Q15M PRN IV DECREASED GLUCOSE; Start 05/07/16 at 20:30 Glucagon (Glucagen) 1 mg Q15M PRN IM DECREASED GLUCOSE; Start 05/07/16 at 20: 30 Glucose (Glutose) 15 gm Q15M PRN BUCCAL DECREASED GLUCOSE; Start 05/07/16 at 20:30 Docusate Sodium (Colace) 100 mg Q12H PRN PO CONSTIPATION; Start 05/07/16 at 20 :30 Dutasteride (Avodart) 0.5 mg DAILY PO Last administered on 05/17/16 08:14; Admin Dose 0.5 MG; Start 05/08/16 at 09:00 Ergocalciferol (Drisdol) 50,000 unit [place]@09 PO Last administered on 05/17/16 11: 00; Admin Dose 50,000 UNIT; Start 05/10/16 at 09:00 Furosemide (Lasix) 40 mg DAILY PO Last administered on 05/17/16 08:15; Admin Dose 40 MG; Start 05/08/16 at 09:00 Acetaminophen (Tylenol Liquid) 650 mg Q6H PRN PO PAIN AND OR ELEVATED TEMP; Start 05/07/16 at 21:00 Carvedilol (Coreg) 25 mg BID PO Last administered on 05/16/16 08:06; Admin Dose 25 MG; Start 05/07/16 at 21:00; Status Future Hold Clobetasol Propionate (Temovate 0.05% Oint) 1 applic BID TOP Last administered on 05/17/16 11:00; Admin Dose 1 APPLIC; Start 05/07/16 at 21:00 Tramadol HCl (Ultram) 50 mg Q6H PRN PO PAIN Last administered on 05/12/16 12:45 ; Admin Dose 50 MG; Start 05/07/16 at 21:00 Docusate Sodium (Colace) 100 mg BID PO Last administered on 05/17/16 08:15; Admin Dose 100 MG; Start 05/08/16 at 09:00 Senna (Senokot) 1 tab HS PO Last administered on 05/16/16 20:21; Admin Dose 1 TAB; Start 05/07/16 at 23:45 Bisacodyl (Dulcolax Supp) 10 mg DAILY PRN [place] CONSTIPATION; Start 05/07/16 at 23:45 Acetaminophen (Tylenol Tab) 650 mg Q4H PRN PO PAIN Last administered on 22:16; Admin Dose 650 MG; Start 05/07/16 at 23:45 Magnesium Hydroxide (Milk Of Mag) 30 ml BID PRN PO CONSTIPATION Last administered on 05/09/16at 20:08; Admin Dose 30 ML; Start 05/07/16 at 23:45 Lactulose (Enulose) 20 gm DAILY PRN PO CONSTIPATION Last administered on at 18:46; Admin Dose 20 GM; Start 05/07/16 at 23:45 Collagenase (Santyl) 1 applic QAM TOP Last administered on 05/17/16 10:09; Admin Dose 1 APPLIC; Start 05/08/16 at 11:00 Ascorbic Acid (Vitamin C) 500 mg DAILY PO Last administered on 05/17/16 08:14; Admin Dose 500 MG; Start 05/08/16 at 10:00 Multivitamins Therapeutic (Theragran) 1 tab DAILY PO Last administered on 08:15; Admin Dose 1 TAB; Start 05/08/16 at 10:00 Betamethasone/ Clotrimazole (Lotrisone Cr) 1 applic BID PRN TOP RASH Last administered on 05/17/16 10:10; Admin Dose 1 APPLIC; Start 05/08/16 at 10:30 Folic Acid (Folic Acid) 1 mg DAILY PO Last administered on 05/17/16 08:15; Admin Dose 1 MG; Start 05/08/16 at 10:00 Zinc Sulfate (Zinc Sulfate) 220 mg DAILY PO Last administered on 05/17/16 08:15 ; Admin Dose 220 MG; Start 05/08/16 at 10:30 Amlodipine Besylate (Norvasc) 5 mg BID PO Last administered on 05/16/16 08:07; Admin Dose 5 MG; Start 05/15/16 at 21:00; Status Future Hold Valsartan 80 mg 80 mg BID PO Last administered on 05/17/16 08:12; Admin Dose 80 MG; Start 05/15/16 at 21:00 Sodium Chloride (1/2 NS) 1,000 ml @ 50 mls/hr Q20H IV ; Start 05/16/16 at 10:30 Linagliptin (Tradjenta) 5 mg DAILY PO Last administered on 05/17/16 08:15; Admin Dose 5 MG; Start 05/17/16 at 09:00 Diagnostic Test (Pha) (Accucheck) 1 ea 02 XX ; Start 05/17/16 at 02:00 Insulin Glargine (Lantus) 24 unit QAM SC ; Start 05/18/16 at 09:00 YOSVANY JADE May 17, 2016 12:24
--- NOTE | 2016-05-17 13:30 | PN ---
Date/Time of Note Date/Time of Note DATE: 05/17/16 TIME: 13:26 Assessment/Plan VTE Prophylaxis VTE Prophylaxis Intervention: SCD's Lines/Catheters IV [facility] Type [facility] PICC Line Central line still needed: No Urinary Cath still in place: Yes Reason Cath still needed: other (indicate) Assessment/Plan Chief Complaint/Hosp Course ASSESSMENT AND PLAN: 1. Status post subdural hematoma and midline shift status post left frontal duane hole and placement of subdural drain. Neurosurgery was consulted. The patient is stable. Continue physical therapy. 2. Encephalopathy, resolving. 3. Diabetes mellitus. Continue medical management with Tradjenta, Lantus, insulin sliding scale, NovoLog. Pharmaceutical Analyst following 4. Acute on Chronic kidney insufficiency. Nephrology has been consulted, status post IV fluid, continue to monitor 5. History of coronary artery disease status post coronary artery bypass graft. Continue Coreg and statin. Unfortunately, the patient does not qualify for any anticoagulation or antiplatelet secondary to subdural hematoma. 6. Gastroesophageal reflux disease. Continue PPI. 7. History of aortic valve replacement as above. The patient does not qualify for any anticoagulation at this time secondary to subdural hematoma. 8. Gout. Continue medical management. 9. Benign prostatic hypertrophy. Continue avodart. 10. Anemia of chronic disease. Continue to monitor. If patient's hemoglobin is less than 7.5, we will transfuse. 11. Hypertension, continue Coreg, start nifedipine, also place the patient on hydralazine when necessary for systolic blood pressure greater than 165. Continue to monitor We will continue to monitor patient closely. Further recommendations, management, and treatment as per clinical course. Problems: Subjective 24 Hr Interval Summary Free Text/Dictation No acute changes Denies of any chest pain or shortness of breath Ambulating with moderate assist Exam/Review of Systems Vital Signs Vitals Vital Signs Date Time Temp Pulse Resp B/P Pulse Ox O2 Delivery O2 Flow Rate FiO2 05/17/16 10:45 69 144/63 05/17/16 08:45 98.4 14 99 05/17/16 08:00 Room Air Intake and Output 05/16/16 05/16/16 05/17/16 15:00 23:00 07:00 Intake Total 1330 ml 660 ml Output Total 1700 ml 1500 ml Balance -370 ml -840 ml Exam General: The patient is well-developed, Not in acute distress. HEENT: Atraumatic, normocephalic. The pupils are equal and round . Neck: Supple with full range of motion. Chest: Normal expansion of the thorax during inspiration Lungs: Clear to auscultation bilaterally Heart: Normal S1-S2, Regular rhythm and rate. Abdomen: Soft , nontender, nondistended , bowel sounds are present. Extremities: Normal to inspection, no edema no cyanosis Neurologic: Normal mental status,The patient is awake, alert and oriented . Results Result Diagram: 05/15/16 1345 05/15/16 1345 Results 24 hrs Laboratory Tests Test 05/16/16 16:45 05/16/16 20:18 05/17/16 02:05 05/17/16 07:54 Bedside Glucose 98 286 H 150 207 Medications Medications Current Medications Rosuvastatin Calcium (Crestor) 40 mg QHS PO Last administered on 05/16/16 20:21 ; Admin Dose 40 MG; Start 05/07/16 at 21:00 Diclofenac Sodium (Voltaren 1% Gel) 2 gm TID TP Last administered on 05/17/16 11:00; Admin Dose 2 GM; Start 05/07/16 at 21:00 Montelukast Sodium (Singulair) 10 mg HS PO Last administered on 05/16/16 20:21 ; Admin Dose 10 MG; Start 05/07/16 at 21:00 Nitroglycerin (Nitroglycerin (Sl Tab) 0.4 Mg) 1 tab Q5M PRN SL CHEST PAIN; Start 05/07/16 at 20:30 Nystatin (Nystatin Powder) 1 applic BID TOP Last administered on 05/17/16 10:09 ; Admin Dose 1 APPLIC; Start 05/07/16 at 21:00 Olopatadine HCl (Patanol 0.1% Oph) 1 drop BID BOTH EYES Last administered on 10:10; Admin Dose 1 DROP; Start 05/07/16 at 21:00 Pantoprazole (Protonix Tab) 40 mg DAILY@06 PO Last administered on 05/17/16 06: 34; Admin Dose 40 MG; Start 05/08/16 at 06:00 Miscellaneous Information 1 ea NOTE XX ; Start 05/07/16 at 20:30 Glucose (Glutose) 15 gm Q15M PRN PO DECREASED GLUCOSE; Start 05/07/16 at 20:30 Glucose (Glutose) 22.5 gm Q15M PRN PO DECREASED GLUCOSE; Start 05/07/16 at 20: 30 Dextrose (D50w Syringe) 25 ml Q15M PRN IV DECREASED GLUCOSE; Start 05/07/16 at 20:30 Dextrose (D50w Syringe) 50 ml Q15M PRN IV DECREASED GLUCOSE; Start 05/07/16 at 20:30 Glucagon (Glucagen) 1 mg Q15M PRN IM DECREASED GLUCOSE; Start 05/07/16 at 20: 30 Glucose (Glutose) 15 gm Q15M PRN BUCCAL DECREASED GLUCOSE; Start 05/07/16 at 20:30 Docusate Sodium (Colace) 100 mg Q12H PRN PO CONSTIPATION; Start 05/07/16 at 20 :30 Dutasteride (Avodart) 0.5 mg DAILY PO Last administered on 05/17/16 08:14; Admin Dose 0.5 MG; Start 05/08/16 at 09:00 Ergocalciferol (Drisdol) 50,000 unit [place]@09 PO Last administered on 05/17/16 11: 00; Admin Dose 50,000 UNIT; Start 05/10/16 at 09:00 Furosemide (Lasix) 40 mg DAILY PO Last administered on 05/17/16 08:15; Admin Dose 40 MG; Start 05/08/16 at 09:00 Acetaminophen (Tylenol Liquid) 650 mg Q6H PRN PO PAIN AND OR ELEVATED TEMP; Start 05/07/16 at 21:00 Carvedilol (Coreg) 25 mg BID PO Last administered on 05/16/16 08:06; Admin Dose 25 MG; Start 05/07/16 at 21:00; Status Future Hold Clobetasol Propionate (Temovate 0.05% Oint) 1 applic BID TOP Last administered on 05/17/16 11:00; Admin Dose 1 APPLIC; Start 05/07/16 at 21:00 Tramadol HCl (Ultram) 50 mg Q6H PRN PO PAIN Last administered on 05/12/16 12:45 ; Admin Dose 50 MG; Start 05/07/16 at 21:00 Docusate Sodium (Colace) 100 mg BID PO Last administered on 05/17/16 08:15; Admin Dose 100 MG; Start 05/08/16 at 09:00 Senna (Senokot) 1 tab HS PO Last administered on 05/16/16 20:21; Admin Dose 1 TAB; Start 05/07/16 at 23:45 Bisacodyl (Dulcolax Supp) 10 mg DAILY PRN [place] CONSTIPATION; Start 05/07/16 at 23:45 Acetaminophen (Tylenol Tab) 650 mg Q4H PRN PO PAIN Last administered on 22:16; Admin Dose 650 MG; Start 05/07/16 at 23:45 Magnesium Hydroxide (Milk Of Mag) 30 ml BID PRN PO CONSTIPATION Last administered on 05/09/16at 20:08; Admin Dose 30 ML; Start 05/07/16 at 23:45 Lactulose (Enulose) 20 gm DAILY PRN PO CONSTIPATION Last administered on at 18:46; Admin Dose 20 GM; Start 05/07/16 at 23:45 Collagenase (Santyl) 1 applic QAM TOP Last administered on 05/17/16 10:09; Admin Dose 1 APPLIC; Start 05/08/16 at 11:00 Ascorbic Acid (Vitamin C) 500 mg DAILY PO Last administered on 05/17/16 08:14; Admin Dose 500 MG; Start 05/08/16 at 10:00 Multivitamins Therapeutic (Theragran) 1 tab DAILY PO Last administered on 08:15; Admin Dose 1 TAB; Start 05/08/16 at 10:00 Betamethasone/ Clotrimazole (Lotrisone Cr) 1 applic BID PRN TOP RASH Last administered on 05/17/16 10:10; Admin Dose 1 APPLIC; Start 05/08/16 at 10:30 Folic Acid (Folic Acid) 1 mg DAILY PO Last administered on 05/17/16 08:15; Admin Dose 1 MG; Start 05/08/16 at 10:00 Zinc Sulfate (Zinc Sulfate) 220 mg DAILY PO Last administered on 05/17/16 08:15 ; Admin Dose 220 MG; Start 05/08/16 at 10:30 Amlodipine Besylate (Norvasc) 5 mg BID PO Last administered on 05/16/16 08:07; Admin Dose 5 MG; Start 05/15/16 at 21:00; Status Future Hold Valsartan 80 mg 80 mg BID PO Last administered on 05/17/16 08:12; Admin Dose 80 MG; Start 05/15/16 at 21:00 Sodium Chloride (1/2 NS) 1,000 ml @ 50 mls/hr Q20H IV ; Start 05/16/16 at 10:30 Linagliptin (Tradjenta) 5 mg DAILY PO Last administered on 05/17/16 08:15; Admin Dose 5 MG; Start 05/17/16 at 09:00 Diagnostic Test (Pha) (Accucheck) 1 ea 02 XX ; Start 05/17/16 at 02:00 Insulin Glargine (Lantus) 24 unit QAM SC ; Start 05/18/16 at 09:00 Guaifenesin (Robitussin Liquid Cup) 200 mg Q6H PRN PO COUGH; Start 05/17/16 at 13:00 GLEN DOMINGO MD May 17, 2016 13:30
[2016-05-17] MEDS: GUAIFENESIN 20 MG/ML 5ML CUP PO PRN ×2 (14:15→22:59)
[2016-05-17] MEDS: NIFEdipine (XL) 30 MG TAB PO SCH ×2 (14:53→21:25)
--- NOTE | 2016-05-17 16:53 | RADRPT ---
PROCEDURE: Renal US. CLINICAL INDICATION: Renal failure. TECHNIQUE: Multiple sonographic images of the kidneys and urinary bladder were obtained. The imag es were reviewed on a PACS workstation. COMPARISON: No prior studies are available for comparison. FINDINGS: The right kidney measures 8.8 x 4.7 x 4.9 cm. The left kidney measures 10.9 x 5.9 x 5.1 cm. There is no solid renal mass. There is a benign cyst superiorly in the left kidney measuring 2.2 cm and a benign cyst inferiorly in the left kidney measuring to 0.9 cm. There is no hydronephrosis. There is no renal calculus. There is thinning and increased echogenicity of the renal parenchyma bilaterally consistent with med ical renal disease. The perirenal regions are normal with no fluid collection or mass. There is a Tilley catheter in the bladder. IMPRESSION: 1. Thinning and increased echogenicity of the renal parenchyma bilaterally consistent with medical renal disease. 2. Benign left renal cysts. 3. Tilley catheter in the bladder. RPTAT: QQ .Gibran Silva MD, Date Time Electronically viewed and signed by .Gibran Silva MD, MD on 05/17/2016 16:53 .R/
[2016-05-17] MEDS: ROSUVASTATIN CALCIUM 40 MG TABLET PO SCH (21:23)
[2016-05-17] MEDS: SENNA TAB PO SCH (21:23)
[2016-05-17] MEDS: MONTELUKAST 10 MG TAB PO SCH (21:25)
[2016-05-18] MEDS: ACCUCHECK XX SCH (02:00)
[2016-05-18] MEDS: SOD CHLORIDE 0.45% 1,000 ML IV SCH ×2 (02:30→22:30)
[2016-05-18] MEDS: PANTOPRAZOLE (EC) 40 MG TAB PO SCH (06:44)
[2016-05-18 07:33] LABS: BASOPHILS % 0.4 % (0.0-2.0); EOSINOPHILS # 0.1 10^3/ul (0.0-0.5); EOSINOPHILS % 1.1 % (0.0-7.0); HEMATOCRIT 28.9 % (42.0-52.0); HEMOGLOBIN 9.6 g/dl (14.0-18.0); LYMPHOCYTES # 2.8 10^3/ul (0.8-2.9); LYMPHOCYTES % 31.9 % (15.0-51.0); MEAN CORPUSCULAR HEMOGLOBIN 30.9 pg (29.0-33.0); MEAN CORPUSCULAR HGB CONC 33.1 g/dl (32.0-37.0); MEAN CORPUSCULAR VOLUME 93.4 fl (82.0-101.0); MEAN PLATELET VOLUME 8.9 fl (7.4-10.4); MONOCYTE # 0.8 10^3/ul (0.3-0.9); MONOCYTES % 8.9 % (0.0-11.0); NEUTROPHILS % 57.7 % (39.0-77.0); PLATELET COUNT 159 10^3/UL (140-440); RED BLOOD COUNT 3.09 10^6/ul (4.70-6.10); RED CELL DISTRIBUTION WIDTH 15.6 % (11.5-14.5); UNCORRECTED WBC 8.6 10^3/ul (4.8-10.8); WHITE BLOOD COUNT 8.6 10^3/ul (4.8-10.8)
[2016-05-18] MEDS: INSULIN ASPART [NOVOLOG] 3 ML PEN SC SCH ×7 (07:35→20:37)
[2016-05-18 07:37] LABS: CONDITION 1; LH ANALYZER COMMENTS 1
[2016-05-18 07:52] LABS: POTASSIUM 4.7 mmol/L (3.5-5.1)
[2016-05-18 07:54] LABS: CREATININE 1.87 mg/dl (0.61-1.24)
[2016-05-18 07:55] LABS: CALCIUM 8.5 mg/dl (8.4-10.2); MAGNESIUM 2.3 mg/dl (1.7-2.5); PHOSPHORUS 4.5 mg/dl (2.5-4.9)
[2016-05-18 08:00] VITALS: BP 164/65; PULSE 52; RESP 20
[2016-05-18] MEDS: DICLOFENAC SODIUM 1% GEL 100 GM TUBE TP SCH ×3 (09:00→20:31)
[2016-05-18] MEDS: NYSTATIN 30 GM POWDER BTL TOP SCH ×2 (09:00→20:31)
[2016-05-18] MEDS: DOCUSATE SODIUM 100 MG CAP PO SCH ×2 (09:10→20:29)
[2016-05-18] MEDS: DUTASTERIDE 0.5 MG CAP PO SCH (09:10)
[2016-05-18] MEDS: NIFEdipine (XL) 30 MG TAB PO SCH ×2 (09:12→20:29)
[2016-05-18] MEDS: ASCORBIC ACID 500 MG TAB PO SCH (09:13)
[2016-05-18] MEDS: LINAGLIPTIN 5 MG TABLET PO SCH (09:13)
[2016-05-18] MEDS: FUROSEMIDE 40 MG TAB PO SCH (09:13)
[2016-05-18] MEDS: MULTIVITAMINS THERAPEUTIC TAB PO SCH (09:13)
[2016-05-18] MEDS: FOLIC ACID 1 MG TAB PO SCH (09:13)
[2016-05-18] MEDS: OLOPATADINE 0.1% 5 ML OPH BOTH EYES SCH ×2 (09:17→20:28)
[2016-05-18] MEDS: VALSARTAN 80 MG TAB PO SCH ×2 (09:17→20:29)
[2016-05-18] MEDS: INSULIN GLARGINE [LANtus] 3 ML PEN SC SCH (09:21)
[2016-05-18] MEDS: COLLAGENASE 30 GM TUBE TOP SCH (09:25)
[2016-05-18] MEDS: CLOBETASOL 0.05% 15 GM OINT TOP SCH ×2 (09:26→20:31)
[2016-05-18] MEDS: ZINC SULFATE 220 MG CAP PO SCH (09:34)
--- NOTE | 2016-05-18 11:41 | PN ---
DATE: 05/18/2016 SUBJECTIVE: The patient is stable, no acute events overnight. No fevers, chills, nausea, vomiting, no shortness of breath. OBJECTIVE: VITAL SIGNS: Blood pressure 147/65, respiration 18, pulse 65, temperature 98.1. HEENT: Head is normocephalic. NECK: Supple. HEART: Regular rate. LUNGS: Show diminished breath sounds at the base. ABDOMEN: Soft, nontender to palpation. No rebound or guarding. EXTREMITIES: Negative for clubbing, cyanosis. No edema. DERMATOLOGIC: No rashes. MUSCULOSKELETAL: No joint effusions. NEUROLOGIC: No change in exam. MEDICATIONS: The patient's medications have been reviewed. LABORATORY DATA: Shows a white count 8.6, hemoglobin 9.6, hematocrit 28.9, platelet count is 159. Sodium 145, potassium 4.7, chloride 106, BUN 58, creatinine 1.87. ASSESSMENT AND PLAN: 1. Nonoliguric acute kidney injury on top of chronic kidney disease stage IV with a baseline creati nine between 1.6 to 1.9 mg/dL. Etiology of acute kidney injury is likely secondary to hemodynamics. Renal function appears to be nearing baseline. At this point, continue current treatment plan, cortes pportive care, renally dose all medications, avoid nephrotoxins. We will follow up urine studies, m onitor renal function closely on diuretic therapy. Avoid significant hemodynamic fluctuations. The patient's renal ultrasound shows no evidence of obstruction and bilateral thin cortices consistent with underlying chronic kidney disease. 2. Mineral bone disorder. Will monitor calcium and phosphorus levels. No need for phosphate binde rs. 3. Hypernatremia. The patient is encouraged to increase free water intake. 4. Anemia of chronic disease. Will continue to monitor H and H levels. No need for Epogen at this time. 5. Subdural hematoma. The patient is status post bur hole with placement of subdural drain. Follo w up with neurosurgery. 6. Diabetes. Continue Accu-Cheks, insulin sliding scale. 7. Encephalopathy, improving. 8. History of coronary artery disease, status post coronary artery bypass graft. Continue medical management. 9. History of aortic valve replacement. Continue current medical management at this time. Not an anticoagulation candidate. 10. BPH. Continue Avodart. 11. Hypertension. Continue current blood pressure regimen. Adjust medications as needed. Dictated By: EDUARDO MONTERO/MARLA Conf#: [id number] DID#: [id number]
[2016-05-18 11:42] VITALS: BP 132/59; RESP 18
--- NOTE | 2016-05-18 13:00 | QN ---
Documentation Comment CT results reviewed and case discussed with Dr. John who saw the patient over the weekend. There is no indication for re-operation at the present time. Recommend repeat CTH in 1-2 weeks. Patient disposition per the rehab team. Avoid antiplatelet medications and/or anticoagulation. He should follow up with me after CTH thank you. LUIS CALVILLO MD May 18, 2016 13:00
--- NOTE | 2016-05-18 13:10 | CONS ---
Date/Time of Note Date/Time of Note DATE: 05/18/16 TIME: 13:10 Consult Date/Type/Reason Admit Date/Time May 07, 2016 at 19:15 Type of Consultation: Endocrinology Ordering Provider: GLEN DOMINGO MD Subjective No new complaints Objective Vital Signs Date Time Temp Pulse Resp B/P Pulse Ox O2 Delivery O2 Flow Rate FiO2 05/18/16 11:42 98.0 67 18 132/59 97 05/18/16 08:00 Room Air Intake and Output 05/17/16 05/17/16 05/18/16 15:00 23:00 07:00 Intake Total 740 ml 240 ml 200 ml Output Total 800 ml 400 ml 1700 ml Balance -60 ml -160 ml -1500 ml INTERDISCIPLINARY TEAM CONFERENCE BOWEL- Cont BLADDER-Cont SKIN- stage 3 decub healing OT- DRESSING-sba/mod BATHING-sba/mod TOILETING-min/mod PT- BED MOBILITY-cga TRANSFERS-cga AMBULATION-cga 60 feet SPEECH- COGNITION-mod DYPHAGIA-mech soft and thin A/P- Interdisciplinary team conference held today. Please see interdisciplinary sheet. Working toward d.c. on 05/19 to supervised environment with post discharge follow up of physical therapy, occupational therapy, and wound care Results/Medications Result Diagram: 05/18/16 0630 05/18/16 0630 Results 24 hrs Laboratory Tests Test 05/17/16 17:11 05/17/16 20:00 05/18/16 06:30 05/18/16 07:41 Bedside Glucose 136 149 109 Anion Gap 18 H Basophils # 0.0 Basophils % 0.4 Blood Morphology Comment Blood Urea Nitrogen 58 H Calcium Level 8.5 Carbon Dioxide Level 26 Chloride Level 106 Creatinine 1.87 H Eosinophils # 0.1 Eosinophils % 1.1 Glucose Level 81 Hematocrit 28.9 L Hemoglobin 9.6 L Lymphocytes # 2.8 Lymphocytes % 31.9 Magnesium Level 2.3 Mean Corpuscular Hemoglobin 30.9 Mean Corpuscular Hemoglobin Concent 33.1 Mean Corpuscular Volume 93.4 Mean Platelet Volume 8.9 Monocytes # 0.8 Monocytes % 8.9 Neutrophils # 5.0 Neutrophils % 57.7 Nucleated Red Blood Cells # 0.0 Nucleated Red Blood Cells % 0.0 Phosphorus Level 4.5 Platelet Count 159 Potassium Level 4.7 Red Blood Count 3.09 L Red Cell Distribution Width 15.6 H Sodium Level 145 H White Blood Count 8.6 Test 05/18/16 12:08 Bedside Glucose 153 Medications Current Medications Rosuvastatin Calcium (Crestor) 40 mg QHS PO Last administered on 05/17/16 21:23 ; Admin Dose 40 MG; Start 05/07/16 at 21:00 Diclofenac Sodium (Voltaren 1% Gel) 2 gm TID TP Last administered on 05/17/16 21:26; Admin Dose 2 GM; Start 05/07/16 at 21:00 Montelukast Sodium (Singulair) 10 mg HS PO Last administered on 05/17/16 21:25 ; Admin Dose 10 MG; Start 05/07/16 at 21:00 Nitroglycerin (Nitroglycerin (Sl Tab) 0.4 Mg) 1 tab Q5M PRN SL CHEST PAIN; Start 05/07/16 at 20:30 Nystatin (Nystatin Powder) 1 applic BID TOP Last administered on 05/17/16 21:26 ; Admin Dose 1 APPLIC; Start 05/07/16 at 21:00 Olopatadine HCl (Patanol 0.1% Oph) 1 drop BID BOTH EYES Last administered on 09:17; Admin Dose 1 DROP; Start 05/07/16 at 21:00 Pantoprazole (Protonix Tab) 40 mg DAILY@06 PO Last administered on 05/18/16 06: 44; Admin Dose 40 MG; Start 05/08/16 at 06:00 Miscellaneous Information 1 ea NOTE XX ; Start 05/07/16 at 20:30 Glucose (Glutose) 15 gm Q15M PRN PO DECREASED GLUCOSE; Start 05/07/16 at 20:30 Glucose (Glutose) 22.5 gm Q15M PRN PO DECREASED GLUCOSE; Start 05/07/16 at 20: 30 Dextrose (D50w Syringe) 25 ml Q15M PRN IV DECREASED GLUCOSE; Start 05/07/16 at 20:30 Dextrose (D50w Syringe) 50 ml Q15M PRN IV DECREASED GLUCOSE; Start 05/07/16 at 20:30 Glucagon (Glucagen) 1 mg Q15M PRN IM DECREASED GLUCOSE; Start 05/07/16 at 20: 30 Glucose (Glutose) 15 gm Q15M PRN BUCCAL DECREASED GLUCOSE; Start 05/07/16 at 20:30 Dutasteride (Avodart) 0.5 mg DAILY PO Last administered on 05/18/16 09:10; Admin Dose 0.5 MG; Start 05/08/16 at 09:00 Ergocalciferol (Drisdol) 50,000 unit [place]@09 PO Last administered on 05/17/16 11: 00; Admin Dose 50,000 UNIT; Start 05/10/16 at 09:00 Furosemide (Lasix) 40 mg DAILY PO Last administered on 05/18/16 09:13; Admin Dose 40 MG; Start 05/08/16 at 09:00 Acetaminophen (Tylenol Liquid) 650 mg Q6H PRN PO PAIN AND OR ELEVATED TEMP; Start 05/07/16 at 21:00 Clobetasol Propionate (Temovate 0.05% Oint) 1 applic BID TOP Last administered on 05/18/16 09:26; Admin Dose 1 APPLIC; Start 05/07/16 at 21:00 Tramadol HCl (Ultram) 50 mg Q6H PRN PO PAIN Last administered on 05/12/16 12:45 ; Admin Dose 50 MG; Start 05/07/16 at 21:00 Docusate Sodium (Colace) 100 mg BID PO Last administered on 05/18/16 09:10; Admin Dose 100 MG; Start 05/08/16 at 09:00 Senna (Senokot) 1 tab HS PO Last administered on 05/17/16 21:23; Admin Dose 1 TAB; Start 05/07/16 at 23:45 Bisacodyl (Dulcolax Supp) 10 mg DAILY PRN [place] CONSTIPATION Last administered on 05/18/16 07:00; Admin Dose 10 MG; Start 05/07/16 at 23:45 Acetaminophen (Tylenol Tab) 650 mg Q4H PRN PO PAIN Last administered on 22:16; Admin Dose 650 MG; Start 05/07/16 at 23:45 Magnesium Hydroxide (Milk Of Mag) 30 ml BID PRN PO CONSTIPATION Last administered on 05/09/16at 20:08; Admin Dose 30 ML; Start 05/07/16 at 23:45 Lactulose (Enulose) 20 gm DAILY PRN PO CONSTIPATION Last administered on at 18:46; Admin Dose 20 GM; Start 05/07/16 at 23:45 Collagenase (Santyl) 1 applic QAM TOP Last administered on 05/18/16 09:25; Admin Dose 1 APPLIC; Start 05/08/16 at 11:00 Ascorbic Acid (Vitamin C) 500 mg DAILY PO Last administered on 05/18/16 09:13; Admin Dose 500 MG; Start 05/08/16 at 10:00 Multivitamins Therapeutic (Theragran) 1 tab DAILY PO Last administered on 09:13; Admin Dose 1 TAB; Start 05/08/16 at 10:00 Betamethasone/ Clotrimazole (Lotrisone Cr) 1 applic BID PRN TOP RASH Last administered on 05/17/16 10:10; Admin Dose 1 APPLIC; Start 05/08/16 at 10:30 Folic Acid (Folic Acid) 1 mg DAILY PO Last administered on 05/18/16 09:13; Admin Dose 1 MG; Start 05/08/16 at 10:00 Zinc Sulfate (Zinc Sulfate) 220 mg DAILY PO Last administered on 05/18/16 09:34 ; Admin Dose 220 MG; Start 05/08/16 at 10:30 Valsartan 80 mg 80 mg BID PO Last administered on 05/18/16 09:17; Admin Dose 80 MG; Start 05/15/16 at 21:00 Sodium Chloride (1/2 NS) 1,000 ml @ 50 mls/hr Q20H IV ; Start 05/16/16 at 10:30 Linagliptin (Tradjenta) 5 mg DAILY PO Last administered on 05/18/16 09:13; Admin Dose 5 MG; Start 05/17/16 at 09:00 Diagnostic Test (Pha) (Accucheck) 1 ea 02 XX ; Start 05/17/16 at 02:00 Insulin Glargine (Lantus) 24 unit QAM SC Last administered on 05/18/16 09:21; Admin Dose 24 UNIT; Start 05/18/16 at 09:00 Guaifenesin (Robitussin Liquid Cup) 200 mg Q6H PRN PO COUGH Last administered on 05/17/16 22:59; Admin Dose 200 MG; Start 05/17/16 at 13:00 Carvedilol (Coreg) 6.25 mg BID PO Last administered on 05/18/16 09:15; Admin Dose 6.25 MG; Start 05/17/16 at 14:00 Nifedipine (Procardia Xl) 30 mg BID PO Last administered on 05/18/16 09:12; Admin Dose 30 MG; Start 05/17/16 at 14:00 MARY CARMEN GARCIA MD May 18, 2016 13:10
--- NOTE | 2016-05-18 15:41 | PN ---
Date/Time of Note Date/Time of Note DATE: 05/18/16 TIME: 15:39 Assessment/Plan VTE Prophylaxis VTE Prophylaxis Intervention: SCD's Lines/Catheters IV [facility] ([facility] PICC Line Central line still needed: No Urinary Cath still in place: No Assessment/Plan Chief Complaint/Hosp Course ASSESSMENT AND PLAN: 1. Status post subdural hematoma and midline shift status post left frontal duane hole and placement of subdural drain. Neurosurgery was consulted. The patient is stable. Continue physical therapy. 2. Encephalopathy, resolving. 3. Diabetes mellitus. Continue medical management with Tradjenta, Lantus, insulin sliding scale, NovoLog. Residence Leasing Agent following 4. Acute on Chronic kidney insufficiency. Nephrology has been consulted, status post IV fluid, continue to monitor 5. History of coronary artery disease status post coronary artery bypass graft. Continue Coreg and statin. Unfortunately, the patient does not qualify for any anticoagulation or antiplatelet secondary to subdural hematoma. 6. Gastroesophageal reflux disease. Continue PPI. 7. History of aortic valve replacement as above. The patient does not qualify for any anticoagulation at this time secondary to subdural hematoma. 8. Gout. Continue medical management. 9. Benign prostatic hypertrophy. Continue avodart. 10. Anemia of chronic disease. Continue to monitor. If patient's hemoglobin is less than 7.5, we will transfuse. 11. Hypertension, continue Coreg, start nifedipine, also place the patient on hydralazine when necessary for systolic blood pressure greater than 165. Continue to monitor We will continue to monitor patient closely. Further recommendations, management, and treatment as per clinical course. Problems: Subjective 24 Hr Interval Summary Free Text/Dictation No new event Patient is max assist with ambulation Tolerating oral intake Exam/Review of Systems Vital Signs Vitals Vital Signs Date Time Temp Pulse Resp B/P Pulse Ox O2 Delivery O2 Flow Rate FiO2 05/18/16 11:42 98.0 67 18 132/59 97 05/18/16 08:00 Room Air Intake and Output 05/17/16 05/17/16 05/18/16 15:00 23:00 07:00 Intake Total 740 ml 240 ml 200 ml Output Total 800 ml 400 ml 1700 ml Balance -60 ml -160 ml -1500 ml Exam General: The patient is well-developed, Not in acute distress. HEENT: Atraumatic, normocephalic. The pupils are equal and round . Neck: Supple with full range of motion. Chest: Normal expansion of the thorax during inspiration Lungs: Clear to auscultation bilaterally Heart: Normal S1-S2, Regular rhythm and rate. Abdomen: Soft , nontender, nondistended , bowel sounds are present. Extremities: Normal to inspection, no edema no cyanosis Neurologic: Normal mental status,The patient is awake, alert and oriented . Results Result Diagram: 05/18/16 0630 05/18/16 0630 Results 24 hrs Laboratory Tests Test 05/17/16 17:11 05/17/16 20:00 05/18/16 06:30 05/18/16 07:41 Bedside Glucose 136 149 109 Anion Gap 18 H Basophils # 0.0 Basophils % 0.4 Blood Morphology Comment Blood Urea Nitrogen 58 H Calcium Level 8.5 Carbon Dioxide Level 26 Chloride Level 106 Creatinine 1.87 H Eosinophils # 0.1 Eosinophils % 1.1 Glucose Level 81 Hematocrit 28.9 L Hemoglobin 9.6 L Lymphocytes # 2.8 Lymphocytes % 31.9 Magnesium Level 2.3 Mean Corpuscular Hemoglobin 30.9 Mean Corpuscular Hemoglobin Concent 33.1 Mean Corpuscular Volume 93.4 Mean Platelet Volume 8.9 Monocytes # 0.8 Monocytes % 8.9 Neutrophils # 5.0 Neutrophils % 57.7 Nucleated Red Blood Cells # 0.0 Nucleated Red Blood Cells % 0.0 Phosphorus Level 4.5 Platelet Count 159 Potassium Level 4.7 Red Blood Count 3.09 L Red Cell Distribution Width 15.6 H Sodium Level 145 H White Blood Count 8.6 Test 05/18/16 12:08 Bedside Glucose 153 Medications Medications Current Medications Rosuvastatin Calcium (Crestor) 40 mg QHS PO Last administered on 05/17/16 21:23 ; Admin Dose 40 MG; Start 05/07/16 at 21:00 Diclofenac Sodium (Voltaren 1% Gel) 2 gm TID TP Last administered on 05/18/16 14:10; Admin Dose 2 GM; Start 05/07/16 at 21:00 Montelukast Sodium (Singulair) 10 mg HS PO Last administered on 05/17/16 21:25 ; Admin Dose 10 MG; Start 05/07/16 at 21:00 Nitroglycerin (Nitroglycerin (Sl Tab) 0.4 Mg) 1 tab Q5M PRN SL CHEST PAIN; Start 05/07/16 at 20:30 Nystatin (Nystatin Powder) 1 applic BID TOP Last administered on 05/17/16 21:26 ; Admin Dose 1 APPLIC; Start 05/07/16 at 21:00 Olopatadine HCl (Patanol 0.1% Oph) 1 drop BID BOTH EYES Last administered on 09:17; Admin Dose 1 DROP; Start 05/07/16 at 21:00 Pantoprazole (Protonix Tab) 40 mg DAILY@06 PO Last administered on 05/18/16 06: 44; Admin Dose 40 MG; Start 05/08/16 at 06:00 Miscellaneous Information 1 ea NOTE XX ; Start 05/07/16 at 20:30 Glucose (Glutose) 15 gm Q15M PRN PO DECREASED GLUCOSE; Start 05/07/16 at 20:30 Glucose (Glutose) 22.5 gm Q15M PRN PO DECREASED GLUCOSE; Start 05/07/16 at 20: 30 Dextrose (D50w Syringe) 25 ml Q15M PRN IV DECREASED GLUCOSE; Start 05/07/16 at 20:30 Dextrose (D50w Syringe) 50 ml Q15M PRN IV DECREASED GLUCOSE; Start 05/07/16 at 20:30 Glucagon (Glucagen) 1 mg Q15M PRN IM DECREASED GLUCOSE; Start 05/07/16 at 20: 30 Glucose (Glutose) 15 gm Q15M PRN BUCCAL DECREASED GLUCOSE; Start 05/07/16 at 20:30 Dutasteride (Avodart) 0.5 mg DAILY PO Last administered on 05/18/16 09:10; Admin Dose 0.5 MG; Start 05/08/16 at 09:00 Ergocalciferol (Drisdol) 50,000 unit [place]@09 PO Last administered on 05/17/16 11: 00; Admin Dose 50,000 UNIT; Start 05/10/16 at 09:00 Furosemide (Lasix) 40 mg DAILY PO Last administered on 05/18/16 09:13; Admin Dose 40 MG; Start 05/08/16 at 09:00 Acetaminophen (Tylenol Liquid) 650 mg Q6H PRN PO PAIN AND OR ELEVATED TEMP; Start 05/07/16 at 21:00 Clobetasol Propionate (Temovate 0.05% Oint) 1 applic BID TOP Last administered on 05/18/16 09:26; Admin Dose 1 APPLIC; Start 05/07/16 at 21:00 Tramadol HCl (Ultram) 50 mg Q6H PRN PO PAIN Last administered on 05/12/16 12:45 ; Admin Dose 50 MG; Start 05/07/16 at 21:00 Docusate Sodium (Colace) 100 mg BID PO Last administered on 05/18/16 09:10; Admin Dose 100 MG; Start 05/08/16 at 09:00 Senna (Senokot) 1 tab HS PO Last administered on 05/17/16 21:23; Admin Dose 1 TAB; Start 05/07/16 at 23:45 Bisacodyl (Dulcolax Supp) 10 mg DAILY PRN [place] CONSTIPATION Last administered on 05/18/16 07:00; Admin Dose 10 MG; Start 05/07/16 at 23:45 Acetaminophen (Tylenol Tab) 650 mg Q4H PRN PO PAIN Last administered on 22:16; Admin Dose 650 MG; Start 05/07/16 at 23:45 Magnesium Hydroxide (Milk Of Mag) 30 ml BID PRN PO CONSTIPATION Last administered on 05/09/16at 20:08; Admin Dose 30 ML; Start 05/07/16 at 23:45 Lactulose (Enulose) 20 gm DAILY PRN PO CONSTIPATION Last administered on at 18:46; Admin Dose 20 GM; Start 05/07/16 at 23:45 Collagenase (Santyl) 1 applic QAM TOP Last administered on 05/18/16 09:25; Admin Dose 1 APPLIC; Start 05/08/16 at 11:00 Ascorbic Acid (Vitamin C) 500 mg DAILY PO Last administered on 05/18/16 09:13; Admin Dose 500 MG; Start 05/08/16 at 10:00 Multivitamins Therapeutic (Theragran) 1 tab DAILY PO Last administered on 09:13; Admin Dose 1 TAB; Start 05/08/16 at 10:00 Betamethasone/ Clotrimazole (Lotrisone Cr) 1 applic BID PRN TOP RASH Last administered on 05/17/16 10:10; Admin Dose 1 APPLIC; Start 05/08/16 at 10:30 Folic Acid (Folic Acid) 1 mg DAILY PO Last administered on 05/18/16 09:13; Admin Dose 1 MG; Start 05/08/16 at 10:00 Zinc Sulfate (Zinc Sulfate) 220 mg DAILY PO Last administered on 05/18/16 09:34 ; Admin Dose 220 MG; Start 05/08/16 at 10:30 Valsartan 80 mg 80 mg BID PO Last administered on 05/18/16 09:17; Admin Dose 80 MG; Start 05/15/16 at 21:00 Sodium Chloride (1/2 NS) 1,000 ml @ 50 mls/hr Q20H IV ; Start 05/16/16 at 10:30 Linagliptin (Tradjenta) 5 mg DAILY PO Last administered on 05/18/16 09:13; Admin Dose 5 MG; Start 05/17/16 at 09:00 Diagnostic Test (Pha) (Accucheck) 1 ea 02 XX ; Start 05/17/16 at 02:00 Insulin Glargine (Lantus) 24 unit QAM SC Last administered on 05/18/16 09:21; Admin Dose 24 UNIT; Start 05/18/16 at 09:00 Guaifenesin (Robitussin Liquid Cup) 200 mg Q6H PRN PO COUGH Last administered on 05/17/16 22:59; Admin Dose 200 MG; Start 05/17/16 at 13:00 Carvedilol (Coreg) 6.25 mg BID PO Last administered on 05/18/16 09:15; Admin Dose 6.25 MG; Start 05/17/16 at 14:00 Nifedipine (Procardia Xl) 30 mg BID PO Last administered on 05/18/16 09:12; Admin Dose 30 MG; Start 05/17/16 at 14:00 GLEN DOMINGO MD May 18, 2016 15:40
[2016-05-18 16:31] LABS: ADD UMIC YES; URINE BILIRUBIN (Dip) NEGATIVE (NEGATIVE); URINE BLOOD (Dip) NEGATIVE (NEGATIVE); URINE COLOR YELLOW (YELLOW); URINE GLUCOSE (Dip) NEGATIVE (NEGATIVE); URINE KETONES (Dip) NEGATIVE (NEGATIVE); URINE LEUKOCYTE ESTERASE (Dip) TRACE (NEGATIVE); URINE NITRITE (Dip) NEGATIVE (NEGATIVE); URINE TOTAL PROTEIN (Dip) NEGATIVE (NEGATIVE); URINE UROBILINOGEN (Dip) 0.2 E.U./dL (0.1-1.0)
[2016-05-18 17:18] LABS: BACTERIA,URINE FEW; SQUAMOUS EPITHELIAL CELL,UR FEW; URINE RBCS 0-2 /HPF (0)
[2016-05-18 20:27] VITALS: BP 150/68; RESP 17
[2016-05-18] MEDS: ROSUVASTATIN CALCIUM 40 MG TABLET PO SCH (20:28)
[2016-05-18] MEDS: MONTELUKAST 10 MG TAB PO SCH (20:29)
[2016-05-18] MEDS: SENNA TAB PO SCH (20:29)
[2016-05-19] MEDS: ACCUCHECK XX SCH (02:41)
[2016-05-19] MEDS: PANTOPRAZOLE (EC) 40 MG TAB PO SCH (06:43)
[2016-05-19 07:36] LABS: BASOPHILS % 0.5 % (0.0-2.0); EOSINOPHILS # 0.1 10^3/ul (0.0-0.5); EOSINOPHILS % 0.9 % (0.0-7.0); HEMATOCRIT 28.2 % (42.0-52.0); HEMOGLOBIN 9.4 g/dl (14.0-18.0); LYMPHOCYTES # 2.4 10^3/ul (0.8-2.9); LYMPHOCYTES % 31.1 % (15.0-51.0); MEAN CORPUSCULAR HEMOGLOBIN 31.5 pg (29.0-33.0); MEAN CORPUSCULAR HGB CONC 33.4 g/dl (32.0-37.0); MEAN CORPUSCULAR VOLUME 94.4 fl (82.0-101.0); MEAN PLATELET VOLUME 8.8 fl (7.4-10.4); MONOCYTE # 0.6 10^3/ul (0.3-0.9); MONOCYTES % 7.6 % (0.0-11.0); NEUTROPHIL # 4.5 10^3/ul (1.6-7.5); NEUTROPHILS % 59.9 % (39.0-77.0); PLATELET COUNT 156 10^3/UL (140-440); RED BLOOD COUNT 2.99 10^6/ul (4.70-6.10); RED CELL DISTRIBUTION WIDTH 15.3 % (11.5-14.5); UNCORRECTED WBC 7.6 10^3/ul (4.8-10.8); WHITE BLOOD COUNT 7.6 10^3/ul (4.8-10.8)
[2016-05-19 07:39] LABS: CONDITION 1; LH ANALYZER COMMENTS 1
[2016-05-19 07:40] VITALS: BP 142/67; RESP 18
[2016-05-19 07:42] LABS: POTASSIUM 4.7 mmol/L (3.5-5.1)
[2016-05-19 07:45] LABS: CREATININE 1.98 mg/dl (0.61-1.24); PHOSPHORUS 3.9 mg/dl (2.5-4.9)
[2016-05-19 07:46] LABS: CALCIUM 8.6 mg/dl (8.4-10.2); MAGNESIUM 2.3 mg/dl (1.7-2.5)
[2016-05-19] MEDS: ZINC SULFATE 220 MG CAP PO SCH (08:52)
[2016-05-19] MEDS: DUTASTERIDE 0.5 MG CAP PO SCH (08:52)
[2016-05-19] MEDS: OLOPATADINE 0.1% 5 ML OPH BOTH EYES SCH (08:52)
[2016-05-19] MEDS: ASCORBIC ACID 500 MG TAB PO SCH (08:53)
[2016-05-19] MEDS: VALSARTAN 80 MG TAB PO SCH (08:53)
[2016-05-19] MEDS: LINAGLIPTIN 5 MG TABLET PO SCH (08:53)
[2016-05-19] MEDS: FUROSEMIDE 40 MG TAB PO SCH (08:53)
[2016-05-19] MEDS: NIFEdipine (XL) 30 MG TAB PO SCH (08:54)
[2016-05-19] MEDS: INSULIN GLARGINE [LANtus] 3 ML PEN SC SCH (08:58)
[2016-05-19] MEDS: DICLOFENAC SODIUM 1% GEL 100 GM TUBE TP SCH (09:00)
[2016-05-19] MEDS: NYSTATIN 30 GM POWDER BTL TOP SCH (09:00)
[2016-05-19] MEDS: FOLIC ACID 1 MG TAB PO SCH (09:00)
[2016-05-19] MEDS: MULTIVITAMINS THERAPEUTIC TAB PO SCH (09:00)
[2016-05-19] MEDS: INSULIN ASPART [NOVOLOG] 3 ML PEN SC SCH ×4 (09:00→12:40)
[2016-05-19] MEDS: CLOBETASOL 0.05% 15 GM OINT TOP SCH (09:00)
[2016-05-19] MEDS: DOCUSATE SODIUM 100 MG CAP PO SCH (09:00)
[2016-05-19] MEDS: COLLAGENASE 30 GM TUBE TOP SCH (11:00)
--- NOTE | 2016-05-19 15:11 | PN ---
DATE: 05/19/2016 SUBJECTIVE: The patient is stable, no acute events overnight. No fevers, chills, nausea, vomiting. OBJECTIVE: VITAL SIGNS: Blood pressure 152/65, respiration 18, pulse 76, temperature 98.0. HEENT: Head is normocephalic. NECK: Supple. HEART: Regular rate. LUNGS: Show diminished breath sounds at the base. ABDOMEN: Soft, nontender to palpation. No rebound or guarding. EXTREMITIES: Negative for clubbing, cyanosis. No edema. DERMATOLOGIC: No rashes. MUSCULOSKELETAL EXAMINATION: No joint effusions. NEUROLOGIC: No change in exam. MEDICATIONS: The patient's medications have been reviewed. LABORATORY DATA: Showed sodium 143, potassium 4.7, chloride 105, BUN 59, creatinine 1.98. White co unt 7.6, hemoglobin 9.4, hematocrit 28.2, platelet count is 156. ASSESSMENT AND PLAN: 1. Nonoliguric acute kidney injury on top of chronic kidney disease stage IV with previous baseline creatinine of 1.6 to 1.9 mg/dL. Etiology of acute kidney injury is secondary to hemodynamics. Earl al function appears to be near baseline. At this point, continue current treatment plan, supportive care, renally dose all medications, avoid nephrotoxins. 2. Mineral bone disorder. Continue to monitor calcium and phosphorus levels. No need for phosphat e binders. 3. Hypernatremia, improved. Continue to encourage free water intake. 4. Anemia. Continue to monitor hemoglobin and hematocrit levels. 5. Subdural hematoma. The patient is currently stable. Continue to monitor. Follow up with neuro surgery. 6. Diabetes, continue Accu-Cheks and sliding scale. 7. Encephalopathy, improving. 8. History of coronary artery disease, status post coronary artery bypass graft. Continue medical management. 9. History of aortic valve placement. 10. History of benign prostatic hyperplasia. Continue Avodart. 10. Hypertension. Continue current blood pressure regimen. Dictated By: EDUARDO MONTERO/MARLA Conf#: [id number] DID#: [id number]
--- NOTE | 2016-05-19 16:03 | PN ---
Date/Time of Note Date/Time of Note DATE: 05/19/16 TIME: 10;30 Assessment/Plan VTE Prophylaxis VTE Prophylaxis Intervention: SCD's Lines/Catheters IV [facility] ([facility]): PICC Line Central line still needed: No Urinary Cath still in place: No Assessment/Plan Chief Complaint/Hosp Course ASSESSMENT AND PLAN: 1. Status post subdural hematoma and midline shift status post left frontal duane hole and placement of subdural drain. Neurosurgery was consulted. The patient is stable. Continue physical therapy. 2. Encephalopathy, resolving. 3. Diabetes mellitus. Continue medical management with Tradjenta, Lantus, insulin sliding scale, NovoLog. Fork Lift Technician following 4. Acute on Chronic kidney insufficiency. Nephrology has been consulted, status post IV fluid, continue to monitor 5. History of coronary artery disease status post coronary artery bypass graft. Continue Coreg and statin. Unfortunately, the patient does not qualify for any anticoagulation or antiplatelet secondary to subdural hematoma. 6. Gastroesophageal reflux disease. Continue PPI. 7. History of aortic valve replacement as above. The patient does not qualify for any anticoagulation at this time secondary to subdural hematoma. 8. Gout. Continue medical management. 9. Benign prostatic hypertrophy. Continue avodart. 10. Anemia of chronic disease. Continue to monitor. If patient's hemoglobin is less than 7.5, we will transfuse. 11. Hypertension, continue Coreg, start nifedipine, also place the patient on hydralazine when necessary for systolic blood pressure greater than 165. Continue to monitor We will continue to monitor patient closely. Further recommendations, management, and treatment as per clinical course. Problems: Subjective 24 Hr Interval Summary Free Text/Dictation No acute changes Able to ambulate with moderate assist Denies of any chest pain or shortness of breath Exam/Review of Systems Vital Signs Vitals Vital Signs Date Time Temp Pulse Resp B/P Pulse Ox O2 Delivery O2 Flow Rate FiO2 05/19/16 07:40 98.0 76 18 142/67 97 05/18/16 08:00 Room Air Intake and Output 05/18/16 05/18/16 05/19/16 15:00 23:00 07:00 Intake Total 630 ml 500 ml Output Total 1000 ml Balance -370 ml 500 ml Exam General: The patient is well-developed, Not in acute distress. HEENT: Atraumatic, normocephalic. The pupils are equal and round . Neck: Supple with full range of motion. Chest: Normal expansion of the thorax during inspiration Lungs: Clear to auscultation bilaterally Heart: Normal S1-S2, Regular rhythm and rate. Abdomen: Soft , nontender, nondistended , bowel sounds are present. Extremities: Normal to inspection, no edema no cyanosis Neurologic: Normal mental status,The patient is awake, alert and oriented . Results Result Diagram: 05/19/16 0630 05/19/16 0630 Results 24 hrs Laboratory Tests Test 05/18/16 17:14 05/18/16 20:23 05/19/16 02:27 05/19/16 06:30 Bedside Glucose 179 224 H 224 H Anion Gap 18 H Basophils # 0.0 Basophils % 0.5 Blood Morphology Comment Blood Urea Nitrogen 59 H Calcium Level 8.6 Carbon Dioxide Level 25 Chloride Level 105 Creatinine 1.98 H Eosinophils # 0.1 Eosinophils % 0.9 Glucose Level 221 #H Hematocrit 28.2 L Hemoglobin 9.4 L Lymphocytes # 2.4 Lymphocytes % 31.1 Magnesium Level 2.3 Mean Corpuscular Hemoglobin 31.5 Mean Corpuscular Hemoglobin Concent 33.4 Mean Corpuscular Volume 94.4 Mean Platelet Volume 8.8 Monocytes # 0.6 Monocytes % 7.6 Neutrophils # 4.5 Neutrophils % 59.9 Nucleated Red Blood Cells # 0.0 Nucleated Red Blood Cells % 0.0 Phosphorus Level 3.9 Platelet Count 156 Potassium Level 4.7 Red Blood Count 2.99 L Red Cell Distribution Width 15.3 H Sodium Level 143 White Blood Count 7.6 Test 05/19/16 07:33 05/19/16 12:19 Bedside Glucose 240 H 284 H GLEN DOMINGO MD May 19, 2016 16:02
[2016-05-20 18:25] LABS: MICROALBUMIN 3.1 mg/dL
== END 2016-05-19 13:00 | DRG 64 ==
LOC: VRC 19:15
PROVIDERS: ADMIT Physical Medicine & Rehabilitation; ATTEND Family Medicine
DX: I62.00 Nontraumatic subdural hemorrhage, unspecified (principal); L89.153 Pressure ulcer of sacral region, stage 3; N17.9 Acute kidney failure, unspecified; E11.22 Type 2 diabetes mellitus with diabetic chronic kidney disease; E11.65 Type 2 diabetes mellitus with hyperglycemia; I13.10 Hypertensive heart and chronic kidney disease without heart failure, with stage 1 through stage 4 chronic kidney disease, or unspecified chronic kidney disease; R13.10 Dysphagia, unspecified; E83.9 Disorder of mineral metabolism, unspecified; I12.9 Hypertensive chronic kidney disease with stage 1 through stage 4 chronic kidney disease, or unspecified chronic kidney disease; G94 Other disorders of brain in diseases classified elsewhere; I25.10 Atherosclerotic heart disease of native coronary artery without angina pectoris; Z95.1 Presence of aortocoronary bypass graft; K21.9 Gastro-esophageal reflux disease without esophagitis; M10.9 Gout, unspecified; Z95.2 Presence of prosthetic heart valve; N40.0 Benign prostatic hyperplasia without lower urinary tract symptoms; D63.8 Anemia in other chronic diseases classified elsewhere; Z87.891 Personal history of nicotine dependence; Z86.79 Personal history of other diseases of the circulatory system; N18.9 Chronic kidney disease, unspecified; M48.00 Spinal stenosis, site unspecified; F06.31 Mood disorder due to known physiological condition with depressive features; F09 Unspecified mental disorder due to known physiological condition; E66.9 Obesity, unspecified; Z68.33 Body mass index [BMI] 33.0-33.9, adult; Z98.61 Coronary angioplasty status
CPT/HCPCS: 70450; 71010; 76775; 80048; 80053; 81001; 81003; 82043; 82947; 82962; 83735; 84100; 84134; 84155; 84300; 85025; 87081; 87086; 89190; 92507; 92523; 92526; 92610; 95852; 97001; 97003; 97110; 97112; 97116; 97150; 97530; 97535; 97542; J1200; J1815

== ENCOUNTER 2016-05-21 14:44 | Emergency (ER) | payer MEDICARE, OTHER ==
[~2016-05-21] VITALS: Ht 182.9 cm; Wt 90.9 kg
[~2016-05-21 14:44] MED LIST changes: -ALLO300T2 PO; -CARV6.2579 PO; -CLON1TAB3 PO; -CLOP75TA4 PO; -DEXL60CA2 PO; -FLUT16SP17 NASAL; -GLIP10TA95 PO; -HUM100VI13 SQ; -TRAM-40 PO
[2016-05-21 14:51] VITALS: Ht 182.9 cm; Wt 90.9 kg
[2016-05-21] MEDS ORDERED: ASC500 PO (15:07)
[2016-05-21] MEDS ORDERED: CARV6.2579 PO (15:08)
[2016-05-21] MEDS ORDERED: DULR PR (15:10)
[2016-05-21] MEDS ORDERED: FOLI-49 PO (15:11)
[2016-05-21] MEDS ORDERED: GLUC1KIT IJ (15:13)
[2016-05-21] MEDS ORDERED: SENN-53 PO (15:21)
[2016-05-21] MEDS ORDERED: MULT-105 PO (15:22)
[2016-05-21] MEDS ORDERED: TRAM-40 PO (15:23)
[2016-05-21] MEDS ORDERED: LINA5TAB PO (15:23)
[2016-05-21] MEDS ORDERED: ACET-2047 PO (15:25)
[2016-05-21] MEDS ORDERED: VALS80TA2 PO (15:26)
[2016-05-21] MEDS ORDERED: ZINC220T PO (15:27)
[2016-05-21] MEDS ORDERED: COLL MC (15:30)
[2016-05-21] MEDS ORDERED: SAN30GM TOP (15:30)
[2016-05-21] MEDS ORDERED: LACT20SO2 PO (15:31)
[2016-05-21] MEDS ORDERED: DEXT38GE15 PO (15:36)
[2016-05-21] MEDS ORDERED: DEXT15LI43 BUCCAL (15:36)
[2016-05-21] MEDS ORDERED: LANT3I SC (15:37)
[2016-05-21] MEDS ORDERED: CLOT15CR6 TOP (15:38)
[2016-05-21] MEDS ORDERED: NITR0.4T6 SL (15:40)
[2016-05-21] MEDS ORDERED: MAGN400O4 PO (15:40)
[2016-05-21] MEDS ORDERED: INSU100I22 SC (15:44)
--- NOTE | 2016-05-21 15:59 | RADRPT ---
PROCEDURE: CT Brain without contrast. CLINICAL INDICATION: Seizure. History of subdural hemorrhage. TECHNIQUE: A CT of the brain without contrast was performed utilizing axial sections from the skul l base through the vertex. The patient was scanned without intravenous contrast enhancement. Sagitta l and coronal reformatted images were obtained using the data from the axial images. Total exam DLP is 720.23 mGy-cm. CTDIvol is 43.27 mGy. One or more of the following dose reduction techniques were used: Automated exposure control, adjustment of the mA and/or kV according to patient size, use of iterative reconstruction technique. COMPARISON: 05/15/2016. FINDINGS: There is a left hemisphere subdural hemorrhage again noted which appears mostly chronic with the chr onic component unchanged measuring approximately 1.3 cm. A thin peripheral layer of acute hemorrhage in the left subdural space is unchanged. This measures up to 0.6 cm, also unchanged. There is 4 mm of rightward midline shift which is unchanged. There is no new intracranial hemorrhage. There is mild to moderate generalized cerebral volume loss. There is moderate periventricular hypoattenuation suggesting chronic microvascular ischemic changes. There are moderate to extensive vascular calcifications within the intracranial carotid arteries. There is no loss of valle-white differentiation to suggest acute territorial infarction. The patient is status post left lens surgery. The paranasal sinuses are well aerated. No destructive osseous lesion is identified. IMPRESSION: 1. Atrophy. 2. Microangiopathic ischemic change. 3. Atherosclerosis. 4. Predominately chronic left hemisphere subdural hemorrhage, unchanged. 5. Unchanged acute hemorrhage in the left subdural space peripherally. 6. Unchanged midline shift to the right measuring 0.4 cm. 7. No other new abnormality. RPTAT: QQ .Gibran Silva MD, MD Date Time Electronically viewed and signed by .Gibran Silva MD, on 05/21/2016 15:58 .R/
[2016-05-21] MEDS ORDERED: LORAZEPAM 2 MG INJ IM ONE ×2 (16:30→17:00)
[2016-05-21] MEDS ORDERED: DIPHENHYDRAMINE 50 MG INJ IM ONE (17:00)
[2016-05-21 17:25] VITALS: BP 166/69; PULSE 88; RESP 18; TEMP 98.1
[2016-05-21 19:00] LABS: BASOPHILS % 0.1 % (0.0-2.0); EOSINOPHILS % 0.2 % (0.0-7.0); HEMATOCRIT 30.4 % (42.0-52.0); HEMOGLOBIN 10.2 g/dl (14.0-18.0); LYMPHOCYTES # 2.2 10^3/ul (0.8-2.9); LYMPHOCYTES % 23.8 % (15.0-51.0); MEAN CORPUSCULAR HEMOGLOBIN 31.4 pg (29.0-33.0); MEAN CORPUSCULAR HGB CONC 33.4 g/dl (32.0-37.0); MEAN CORPUSCULAR VOLUME 94.1 fl (82.0-101.0); MEAN PLATELET VOLUME 8.7 fl (7.4-10.4); MONOCYTE # 0.6 10^3/ul (0.3-0.9); MONOCYTES % 6.5 % (0.0-11.0); NEUTROPHIL # 6.3 10^3/ul (1.6-7.5); NEUTROPHILS % 69.4 % (39.0-77.0); PLATELET COUNT 167 10^3/UL (140-440); RED BLOOD COUNT 3.23 10^6/ul (4.70-6.10); RED CELL DISTRIBUTION WIDTH 15.4 % (11.5-14.5)
[2016-05-21 19:09] LABS: CONDITION 1; LH ANALYZER COMMENTS 1; POTASSIUM 5.2 mmol/L (3.5-5.1)
[2016-05-21 19:11] LABS: CREATININE 1.88 mg/dl (0.61-1.24)
[2016-05-21 19:12] LABS: CALCIUM 9.2 mg/dl (8.4-10.2)
[2016-05-21 19:21] LABS: INR 1.01; PROTIME 13.3 Sec (12.2-14.2)
[2016-05-21 19:22] LABS: PARTIAL THROMBOPLASTIN TIME 25.5 Sec (25.0-35.0)
[2016-05-21 19:24] LABS: TROPONIN-I 0.029 ng/ml (0.00-0.12)
--- NOTE | 2016-05-21 19:36 | ERD ---
ER Documentation Chief Complaint Date/Time DATE: 05/21/16 TIME: 19:32 Chief Complaint seizure 1 hour ago HPI This is an 86-year-old male who presents to the emergency room for evaluation of a seizure which occurred 1 hour prior to his arrival. According to EMS this patient is at a rehabilitation center and a nurse was stating that this patient did have a seizure which lasted approximately 15 seconds. Detailed history is unobtainable from this patient due to a language barrier. His family members are at bedside stated this patient has had a brain bleed recently with recent surgery and they brought the patient in for further evaluation. This patient does appear to be agitated and states he does not want to be in the emergency room ROS All systems reviewed and are negative except as per history of present illness. Medications Home Meds Active Scripts Pantoprazole* (Pantoprazole*) 40 Mg Tablet.dr, 40 MG PO DAILY@06 for 30 Days, # 30 Prov:KAREN OLIVIER MD 05/07/16 Nystatin* (Nystop*) 15 Gm Powder, 1 APPLIC TOP BID for 15 Days, TUB Prov:KAREN OLIVIER MD 05/07/16 Docusate Sodium* (Colace*) 100 Mg Capsule, 100 MG PO Q12H Y for CONSTIPATION for 30 Days, #60 CAP Prov:KAREN OLIVIER MD 05/07/16 Reported Medications Insulin Aspart (Novolog FlexPen) 100 Unit/1 Ml Insuln.pen, 0 SC SLIDING SCALE AC , EA INJECT PER SLIDING SCALE: IF 151-200=2UNITS, 201-250=4UNITS, 251-300=6UNITS, 301-350=8UNITS, 351-400=10UNITS IF>400,GIVE 12UNITS AND INFORM 05/21/16 Nitroglycerin* (Nitroglycerin* SL) 0.4 Mg Tab.subl, 0.4 MG SL Q5MIN Y for CHEST PAIN, BOTTLE 05/21/16 Magnesium Hydroxide* (Milk Of Magnesia*) 400 Mg/5 Ml Oral.susp, 30 ML PO Q12H for CONSTIPATION, ML 05/21/16 Clotrimazole-Betamethasone Diprop (Clotrimazole-Betamethasone Diprop) 15 Gm Cream.gm., 1 APPLIC TOP BID, TUB 05/21/16 Insulin Glargine* (Lantus*) 100 Unit/Ml Soln, 24 UNIT SC DAILY, #1 VIAL 05/21/16 Dextrose (Glucose) 15 Gm/60 Ml Liquid, 15 GM BUCCAL HYPOGLYCEMIA 05/21/16 Lactulose* (Lactulose*) 20 Gm/30 Ml Solution, 20 GM PO Q24 Y for PRN, ML 05/21/16 Collagenase Clostridium Hist. (Collagenase) 25,000 Unit Powder.ea., 80362 UNIT MC 05/21/16 Collagenase* (Santyl*) 30 Gm Oint..gm., 1 APPLIC TOP DAILY Y for WOUND HEALING, #1 TUB 05/21/16 Zinc Sulfate* (Zinc Sulfate*) 220 Mg Tablet, 220 MG PO DAILY, TAB 05/21/16 Valsartan* (Diovan*) 80 Mg Tablet, 80 MG PO BID, TAB 05/21/16 Acetaminophen* (Acetaminophen*) 650 Mg Tablet, 650 MG PO Q6H Y for PAIN, #30 TAB 05/21/16 Tramadol Hcl* (Ultram*) 50 Mg Tablet, 50 MG PO Q12 Y for PAIN, TAB 05/21/16 Linagliptin (TRADJENTA) 5 Mg Tablet, 5 MG PO DAILY, TAB 05/21/16 Multivitamin with Minerals (Multivitamins with Minerals) 1 Each Tablet, 1 EACH PO DAILY, TAB 05/21/16 Sennosides* (Senna Lax*) 8.6 Mg Tablet, 1 TAB PO QHS, TAB 05/21/16 Glucagon,Human Recombinant (Glucagon Emergency Kit) 1 Mg Kit, 1 MG IJ DAILY Y for PRN, KIT 05/21/16 Folic Acid* (Folic Acid*) 1 Mg Tablet, 1 MG PO DAILY, TAB 05/21/16 Bisacodyl* (Bisacodyl*) 10 Mg Supp, 10 MG AL Q24H for CONSTIPATION, SUPP 05/21/16 Carvedilol* (Carvedilol*) 6.25 Mg Tablet, 6.25 MG PO BID, #60 TAB HOLD IF SBP<110 OR HR<60 05/21/16 Ascorbic Acid (Vitamin C) 500 Mg Tab, 500 MG PO DAILY, TAB 05/21/16 Clobetasol Propionate* (Clobetasol Propionate*) 15 Gm Oint, 1 APPLIC TOP BID, # 1 TUB 04/23/16 Olopatadine* (Pataday*) 0.2% - 2.5 Ml Drops, 1 DROP BOTH EYES DAILY, EA 04/23/16 Diclofenac Sodium* (Voltaren* Gel) 1% -100 Gm Gel, 2 GM TOP TID, #1 TUB 04/23/16 Rosuvastatin Calcium* (Crestor*) 40 Mg Tablet, 40 MG PO QHS, #30 TAB 04/23/16 Dutasteride* (Avodart*) 0.5 Mg Capsule, 0.5 MG PO DAILY, CAP 04/23/16 Furosemide* (Furosemide*) 40 Mg Tablet, 40 MG PO DAILY, TAB 04/23/16 Montelukast Sodium* (Montelukast Sodium*) 10 Mg Tablet, 10 MG PO QHS, #30 TAB 04/23/16 Ergocalciferol* (Drisdol* (Vitamin D2)) 50,000 Unit Capsule, 86796 UNIT PO Q7D, CAP 04/23/16 Discontinued Reported Medications Dextrose (Glucose Gel) 38 Gm Gel..gram., 38 GM PO 05/21/16 Valsartan* (Diovan*) 160 Mg Tablet, 160 MG PO BID, TAB 04/23/16 Tamsulosin Hcl* (Tamsulosin Hcl*) 0.4 Mg Cap.er.24h, 0.4 MG PO DAILY, CAP 04/23/16 Potassium Chloride* (Potassium Chloride*) 8 Meq Capsule.er, 8 MEQ PO DAILY, CAP 04/23/16 Discontinued Scripts Insulin Aspart* (Novolog Insulin Pen*) 100 Unit/Ml Soln, 5 UNIT SC WITH MEALS for 30 Days, BOT Prov:KAREN OLIVIER MD 05/07/16 Insulin Glargine* (Lantus*) 100 Unit/Ml Soln, 15 UNIT SC QAM for 30 Days, BOT Prov:KAREN OLIVIER MD 05/07/16 Hydralazine Hcl* (Hydralazine Hcl*) 10 Mg Tablet, 10 MG PO Q8 for 30 Days, #90 TAB Prov:KAREN OLIVIER MD 05/07/16 Amlodipine Besylate* (Amlodipine Besylate*) 5 Mg Tablet, 5 MG PO DAILY for 30 Days, #30 TAB Prov:KAREN OLIVIER MD 05/07/16 Allergies Allergies: Coded Allergies: No Known Allergy (Unverified , 05/21/16) PMhx/Soc History of Surgery: Yes Anesthesia Reaction: No Hx Neurological Disorder: No Hx Respiratory Disorders: No Hx Cardiac Disorders: Yes (CAD, HYPERLIPIDEMIA, HTN) Hx Psychiatric Problems: No Hx Miscellaneous Medical Probl: Yes (BPH,CKD,ANEMIA ,GOUT) Hx Alcohol Use: No Hx Substance Use: No Hx Tobacco Use: No Smoking Status: Never smoker Physical Exam Vitals Vital Signs Date Time Temp Pulse Resp B/P Pulse Ox O2 Delivery O2 Flow Rate FiO2 05/21/16 17:25 98.1 88 18 166/69 98 Room Air 05/21/16 14:51 98.2 72 20 193/81 99 Physical Exam INITIAL VITAL SIGNS: Reviewed by me GENERAL: The patient is well developed and appropriate for usual state of health in no apparent distress HEENT: Pupils equal, round, and reactive to light. EOMI. There is no scleral icterus. NECK: C-spine is soft and supple, there is no meningismus. There is no cervical lymphadenopathy. LUNGS: Clear to auscultation bilaterally. There are no rales, wheezes or rhonchi. HEART: Regular rate and rhythm, no murmurs, clicks, rubs or gallops. ABDOMEN: Soft, non-tender, non-distended. There are bowel sounds in all four quadrants. No rebound or guarding. EXTREMITIES: There is no peripheral cyanosis or edema. No focal swelling or erythema. NEUROLOGICAL: The patient moves all four extremities with 5/5 strength. Cranial nerves II - XII are intact. Alert and oriented to person place and time , no focal neurological deficit SKIN: There is no apparent rash or petechiae. HEME/LYMPHATIC: There is no evidence of excessive bruising or lymphedema. PSYCHIATRIC: The patient does not appear anxious or depressed. Result Diagram: 05/21/16 1845 05/21/16 184 Results 24 hrs Laboratory Tests Test 05/21/16 15:50 05/21/16 18:45 Bedside Glucose 139mg/dL Activated Partial Thromboplast Time 25.5Sec Anion Gap 18 Basophils # 0.010^3/ul Basophils % 0.1% Blood Morphology Comment Blood Urea Nitrogen 55mg/dl Calcium Level 9.2mg/dl Carbon Dioxide Level 28mmol/L Chloride Level 106mmol/L Creatinine 1.88mg/dl Eosinophils # 0.010^3/ul Eosinophils % 0.2% Glucose Level 154mg/dl Hematocrit 30.4% Hemoglobin 10.2g/dl INR International Normalized Ratio 1.01 Lymphocytes # 2.210^3/ul Lymphocytes % 23.8% Mean Corpuscular Hemoglobin 31.4pg Mean Corpuscular Hemoglobin Concent 33.4g/dl Mean Corpuscular Volume 94.1fl Mean Platelet Volume 8.7fl Monocytes # 0.610^3/ul Monocytes % 6.5% Neutrophils # 6.310^3/ul Neutrophils % 69.4% Nucleated Red Blood Cells # 0.010^3/ul Nucleated Red Blood Cells % 0.0/100WBC Platelet Count 84262^3/UL Potassium Level 5.2mmol/L Prothrombin Time 13.3Sec Prothrombin Time Ratio 1.0 Red Blood Count 3.2310^6/ul Red Cell Distribution Width 15.4% Sodium Level 147mmol/L Troponin I 0.029ng/ml White Blood Count 9.010^3/ul Current Medications Medications (Trade) Dose Ordered Sig/Cody Route PRN Reason Start Time Stop Time Status Last Admin Dose Admin Lorazepam (Ativan) 4 mg ONCE ONCE IM 05/21/16 16:30 05/21/16 16:45 DC Lorazepam (Ativan) 2 mg ONCE ONCE IM 05/21/16 17:00 05/21/16 17:01 DC 05/21/16 16:57 Diphenhydramine HCl (Benadryl) 50 mg ONCE ONCE IM 05/21/16 17:00 05/21/16 17:01 DC 05/21/16 17:02 Procedures/MDM CT head without: 1. Atrophy. 2. Microangiopathic ischemic change. 3. Atherosclerosis. 4. Predominately chronic left hemisphere subdural hemorrhage, unchanged. 5. Unchanged acute hemorrhage in the left subdural space peripherally. 6. Unchanged midline shift to the right measuring 0.4 cm. 7. No other new abnormality. EKG: Rate/Rhythm: [Normal Sinus Rhythm] QRS, ST, T-waves: [No changes consistent w/ acute ischemia] Impression: [No evidence of ischemia or arrhythmia] This 86-year-old male presents to the emergency room for evaluation of a seizure. This patient does have a history of a previous subdural hematoma with evacuation. Lab work was obtained after 3 hours due to the fact that this patient was not allowing anyone to draw his blood. However after numerous conversations with the patient and the patient's family members this patient did allow us to draw his blood. He wanted pain medicine prior and was given Ativan. This patient did have a CAT scan which does not show any acute hemorrhage however he does still have the remnant of his previous subdural hemorrhage. He is alert and oriented to person place and time with no focal neurological deficits. Family members state that he is at his baseline mental status. His lab work is within normal limits and he will be discharged back to his rehab facility at this time. He has had no seizure activity since being in the emergency room, and I not certain that this patient had a seizure or not. Departure Diagnosis: Primary Impression: Seizure disorder Additional Impressions: Normocytic anemia Renal insufficiency Condition: BASIA German DO May 21, 2016 19:36
== END 2016-05-21 21:21 | disposition short-term general hospital (02) ==
LOC: E/R 14:44
DX: G40.909 Epilepsy, unspecified, not intractable, without status epilepticus (principal); R40.2242 Coma scale, best verbal response, confused conversation, at arrival to emergency department; D64.9 Anemia, unspecified; I25.10 Atherosclerotic heart disease of native coronary artery without angina pectoris; I12.9 Hypertensive chronic kidney disease with stage 1 through stage 4 chronic kidney disease, or unspecified chronic kidney disease; N18.9 Chronic kidney disease, unspecified; R40.2362 Coma scale, best motor response, obeys commands, at arrival to emergency department; R40.2142 Coma scale, eyes open, spontaneous, at arrival to emergency department; Z79.4 Long term (current) use of insulin
CPT/HCPCS: 70450; 80048; 82962; 84484; 85025; 85610; 85730; 93005; 96372; 99285; J1200; J2060

== ENCOUNTER 2017-08-17 08:10 | Inpatient (IN) | END 2017-08-26 14:16 | DRG 871 ==

== ENCOUNTER 2017-08-30 01:54 | Inpatient (IN) | END 2017-09-21 08:50 | DRG 871 ==